=== PATIENT | female | born 1985 | race Caucasian/White ===

== ENCOUNTER 2023-12-07 08:28 | Outpatient (OUT) | payer BC, SELFPAY ==
[2023-12-07 08:48] LABS: Basophils Percent Auto 0.3 % (0.2-2.0); Eosinophils Absolute Auto 0.1 10^3/uL (0.0-0.7); Eosinophils Percent Auto 0.8 % (0.9-7.0); Hematocrit 37.3 % (36.0-48.0); Immature Granulocytes Abs Auto 0.01 10^3/uL (0.00-0.03); Immature Granulocytes Pct Auto 0.2 % (0.0-0.5); Lymphocytes Absolute Auto 1.9 10^3/uL (1.2-3.8); Lymphocytes Percent Auto 28.7 % (20.5-60.0); Mean Corpuscular HGB Conc 32.2 g/dL (29.9-35.2); Mean Corpuscular Hemoglobin 27.6 pg (26.7-34.0); Mean Corpuscular Volume 85.9 fL (81.0-99.0); Monocytes Absolute Auto 0.7 10^3/uL (0.3-0.8); Monocytes Percent Auto 10.5 % (1.7-12.0); Neutrophils Absolute Auto 3.8 10^3/uL (1.4-6.5); Neutrophils Percent Auto 59.5 % (43.0-75.0); Platelet Count 227 10^3/uL (150-450); Red Blood Count 4.34 10^6/uL (4.20-5.40); Red Cell Distribution Width 13.1 % (11.0-15.0); White Blood Count 6.5 10^3/uL (4.0-11.0)
[2023-12-07 09:03] LABS: Estimated Average Glucose 105 mg/dL; Glycohemoglobin A1C 5.3 % (4.5-6.2)
[2023-12-07 09:53] LABS: Alanine Aminotransferase 16 U/L (14-59); Albumin Globulin Ratio 0.7; Albumin Level 3.2 g/dL (3.4-5.0); Alkaline Phosphatase 58 U/L (46-116); Anion Gap 13.4; Aspartate Amino Transferase 10 U/L (15-37); BUN Creatinine Ratio 18.7; Bilirubin Total 0.5 mg/dL (0.2-1.0); Calcium 8.4 mg/dL (8.5-10.1); Carbon Dioxide 26.4 mmol/L (21.0-32.0); Chloride 103 mmol/L (98-107); Chol HDL Ratio 2.5; Cholesterol 158 mg/dL (<=200); Estimated GFR (African America >60 (>=60); Estimated GFR (Non-African Ame >60 (>=60); Free T3 2.57 pg/mL (2.18-3.98); Globulin 4.4 g/dL; Glucose 92 mg/dL (74-106); HDL Cholesterol 63 mg/dL (40-60); Potassium 3.8 mmol/L (3.5-5.1); Sodium 139 mmol/L (136-145); Total Protein 7.6 g/dL (6.4-8.2); Triglycerides 37 mg/dL (<=150); VLDL CHOLESTEROL 7.4 mg/dL
[2023-12-09 12:08] LABS: Insulin 9.6 uIU/mL (2.6-24.9)
== END 2023-12-07 08:29 | disposition home or self-care (01) ==
LOC: LAB 08:28
PROVIDERS: PCP Family Medicine; Visit Provider Family Medicine
DX: Z00.00 Encounter for general adult medical examination without abnormal findings (principal)
CPT/HCPCS: 36415; 80053; 80061; 82306; 83036; 83525; 83540; 84436; 84443; 84481; 85025

== ENCOUNTER 2024-01-11 11:01 | Outpatient (OUT) | payer BC, SELFPAY ==
--- OUTSIDE RECORDS SUMMARY | 2024-01-11 11:04 | XMS_ITS | CCD ---
Author Organization [facility] Care Team Providers Care Consumer Marketing Analyst Name Role Phone SEB WALLER Admitting Unavailable REQUEST, NONE LISTED Primary Care Unavaila ble CHRISTIN, SEB Attending Unavailable CHRISTIN, SEB Consulting Unavailable REQUEST, NONE LISTED Primary Care Unavaila ble CHRISTIN, SEB Admitting Unavailable CHRISTIN, SEB Attending Unavailable CHRISTIN, SEB Consulting Unavailable REQUEST, NONE LISTED Primary Care Unavaila ble HOY ., DR MATSON Admitting Unavailable HOY ., DR MATSON Attending Unavailable HOY ., DR MATSON Consulting Unavailable HOY ., DR MATSON Admitting Unavailable REQUEST, NONE LISTED Primary Care Unavaila ble HOY ., DR MATSON Attending Unavailable HOY ., DR MATSON Consulting Unavailable ZIEBER, DR CAROLINA Montgomery Consulting Unavailable HOY ., DR MATSON Admitting Unavailable HOY ., DR MATSON Attending Unavailable HOY ., DR MATSON Consulting Unavailable REQUEST, NONE LISTED Primary Care Unavaila ble HOY ., DR MATSON Admitting Unavailable HOY ., DR MATSON Attending Unavailable HOY ., DR MATSON Consulting Unavailable REQUEST, NONE LISTED Primary Care Unavaila ble HOY ., DR MATSON Attending Unavailable HOY ., DR MATSON Consulting Unavailable HOY ., DR MATSON Admitting Unavailable REQUEST, NONE LISTED Primary Care Unavaila ble ELVIN JOVANY Attending Unavailable Problems Active Problems Problem Classification Problem Date Documented Da te Episodic/Chronic Other upper respiratory disease (1 source) Nasal congestion; Translations: [NASAL CONGESTION] Onset: 02-10-2023 Episodic Unclassified (4 sources) CONTACT W/AND (SUSP) EXPOS COVID-19; Translations: [CONTACT W/AND (SUSP) EXPOS COVID-19] Onset: 05-31-2022 Unclassified (1 source) COUGH, UNSPECIFIED; Translations: [COUGH, UNSPECIFIED] Onset: 02-10-2023 Viral infection (1 source) COVID-19; Translations: [COVID-19] Onset: 02-10-2023 Past or Other Problems Problem Classification Problem Date Documented Da te Episodic/Chronic Fever of unknown origin (4 sources) Fever, unspecified; Translations: [FEVER UNSPECIFIED] Onset: 05-30-2022 Episodic Other upper respiratory infections (1 source) Acute recurrent frontal sinusitis; Translations: [ACUTE RECURRENT FRONTAL SINUSITIS] Onset: 05-29-2022 Episodic Residual codes; unclassified (1 source) Localized edema; Translations: [LOCALIZED EDEMA] Onset: 05-31-2022 Episodic Unclassified (1 source) CONTACT W/AND (SUSP) EXPOS COVID-19; Translations: [CONTACT W/AND (SUSP) EXPOS COVID-19] Onset: 02-07-2023 Results Test Name Value Interpretation Reference Range Facil ity SYMPTOMATIC COVID-19 ANTIGEN on 02-07-2023 EUA Statement SEE BELOW Normal [facility] Comment on above: Result Comment: This test has not been FDA cleared or approved, but has been authorized by the FDA under an Emergency Use Authorization (EUA) for use by authorized laboratories certified under CLIA that meet the requirements to perform moderate or high complexity testing. This test has been authorized only for the detection of proteins from SARS-CoV-2, not for any other viruses or pathogens. The emergency use of this test is authorized for the duration of the declaration that circumstances exist justifying the authorization of emergency use of in vitro diagnostic tests for detection and/or diagnosis of Covid-19 under section 564(b)(1) of the Act, 21 U.S.C. 360bbb-3(b)(1), unless the declaration is terminated or authorization is revoked sooner. Performed By: #### C VDAGS #### [facility] [address] [address] [address] Amber Fairbanks SARS-CoV-2 (COVID-19) RNA MARIZOL+probe Ql (Unsp spec) Positive Abnormal NEGATIVE [facility] Comment on above: Performed By: #### C VDAGS #### [facility] [address] [address] [address] Amber Fairbanks Covid-19 PCR (CVDTBH)on 09-13 SARS-CoV-2 (COVID-19) RNA MARIZOL+probe Ql (Unsp spec) Not detected Normal NOT DETECTED [facility] Comment on above: Result Comment: When diagnostic testing is negative, the possibility of a false negative should be considered in the context of a patient's recent exposures and the presence of clinical signs and symptoms consistent with SARS-CoV-2. This test is not yet approved or cleared by the [place] FDA. When there are no FDA-approved or cleared tests available, and other criteria are met, FDA can make tests available under an emergency access mechanism called an Emergency Use Authorization (EUA). The EUA for this test is supported by the [place] Clin[place] of Health and Human Service's declaration that circumstances exist to justify the emergency use of in vitro diagnostics for the detection and/or diagnosis of the virus that causes COVID-19. This EUA will remain in effect for the duration of the COVID-19 declaration justifying emergency of IVDs, unless it is terminated or revoked by the FDA (after which the test may no longer be used). Performed By: #### C VDTBH #### [facility] [address] [place] [address] Dr. Amber Fairbanks GROUP A STREP CULTUREon 09-13 S. pyogenes Ag Ql (Unsp spec) Culture Observations: NEGATIVE FOR GROUP A STREPTOCOCCUS. Normal [facility] Comment on above: Performed By: #### C VDAGA #### [facility] [address] [place] [address] Dr. Amber Fairbanks INFLUENZA A AND B AGon 09-27 INFLUENZA A AG Negative Normal NEGATIVE SEE COMMENT [facility] Comment on above: Performed By: #### I NFLUAB #### [facility] [address] [place] [address] Dr. Amber Fairbanks INFLUENZA B AG Negative Normal NEGATIVE SEE COMMENT [facility] Comment on above: Performed By: #### I NFLUAB #### [facility] [address] [place] [address] Dr. Amber Fairbanks INTERNAL CONTROLS Within Normal Limits Normal Within Normal Limits [facility] Comment on above: Performed By: #### I NFLUAB #### [facility] [address] [place] [address] Dr. Amber Fairbanks STREPT SCREENon 09-27-2022 STREP SCREEN A Negative Normal NEGATIVE [facility] Comment on above: Performed By: #### C VDAGA #### [facility] [address] [place] [address] Dr. Amber Fairbanks CBC AUTO DIFFon 05-30-2022 BASO # 0.0 103/ul Normal 0.0-0.1 [facility] Comment on above: Performed By: #### C BC #### [facility] [address] [place] [address] Dr. Amber Fairbanks Basophils/100 WBC (Bld) 0.3 % Normal 0.2-2.0 [facility] Comment on above: Performed By: #### C BC #### [facility] [address] [place] [address] Dr. Amber Fairbanks EO # 0.0 103/ul Normal 0.0-0.7 [facility] Comment on above: Performed By: #### C BC #### [facility] [address] [place] [address] Dr. Amber Fairbanks Eosinophils/100 WBC (Bld) 0.3 % Critically low 0.9-7.0 [facility] Comment on above: Performed By: #### C BC #### [facility] [address] [place] [address] Dr. Amber Fairbanks Erythrocyte distribution width (RBC) [Ratio] 12.8 % Normal 11.0-15.0 [facility] Comment on above: Performed By: #### C BC #### [facility] [address] [place] [address] Dr. Amber Fairbanks Hematocrit (Bld) [Volume fraction] 38.5 % Normal 36.0-48.0 [facility] Comment on above: Performed By: #### C BC #### [facility] [address] [place] [address] Dr. Amber Fairbanks Hemoglobin (Bld) [Mass/Vol] 12.9 g/dL Normal 12.0-16.0 [facility] Comment on above: Performed By: #### C BC #### [facility] [address] [address] [address] Amber Fairbanks IG # 0.00 10e3/ul Normal 0.00-0.03 [facility] Comment on above: Performed By: #### C BC #### [facility] [address] [address] [address] Amber Fairbanks IG % 0.0 % Normal 0.0-0.5 [facility] Comment on above: Performed By: #### C BC #### [facility] [address] [place] [address] Dr. Amber Fairbanks LYMPH # 1.1 103/ul Critically low 1.2-3.8 [facility] Comment on above: Performed By: #### C BC #### [facility] [address] [place] [address] Dr. Amber Fairbanks Lymphocytes/100 WBC (Bld) 27.2 % Normal 20.5-60.0 [facility] Comment on above: Performed By: #### C BC #### [facility] [address] [place] [address] Dr. Amber Fairbanks MANUAL DIFF REQ NO Normal [facility] Comment on above: Performed By: #### C BC #### [facility] [address] [place] [address] Dr. Amber Fairbanks MCH (RBC) [Entitic mass] 29.1 pg Normal 26.7-34.0 [facility] Comment on above: Performed By: #### C BC #### [facility] [address] [place] [address] Dr. Amber Fairbanks MCHC (RBC) [Mass/Vol] 33.5 g/dL Normal 29.9-35.2 [facility] Comment on above: Performed By: #### C BC #### [facility] [address] [place] [address] Dr. Amber Fairbanks MCV (RBC) [Entitic vol] 86.7 fL Normal 81.0-99.0 [facility] Comment on above: Performed By: #### C BC #### [facility] [address] [place] [address] Dr. Amber Fairbanks MONO # 0.5 103/ul Normal 0.3-0.8 [facility] Comment on above: Performed By: #### C BC #### [facility] [address] [place] [address] Dr. Amber Fairbanks Monocytes/100 WBC (Bld) 13.5 % Critically high 1.7-12.0 [facility] Comment on above: Performed By: #### C BC #### [facility] [address] [place] [address] Dr. Amber Fairbanks NEUT # 2.3 103/ul Normal 1.4-6.5 [facility] Comment on above: Performed By: #### C BC #### [facility] [address] [place] [address] Dr. Amber Fairbanks Neutrophils/100 WBC (Bld) 58.7 % Normal 43.0-75.0 [facility] Comment on above: Performed By: #### C BC #### [facility] [address] [place] [address] Dr. Amber Fairbanks Platelet mean volume (Bld) [Entitic vol] 10.5 fL Normal 9.5-13.5 [facility] Comment on above: Performed By: #### C BC #### [facility] [address] [place] [address] Dr. Amber Fairbanks PLT 241 103/ul Normal 150-450 [facility] Comment on above: Performed By: #### C BC #### [facility] [address] [place] [address] Dr. Amber Fairbanks RBC 4.44 106/ul Normal 4.20-5.40 [facility] Comment on above: Performed By: #### C BC #### [facility] [address] [place] [address] Dr. Amber Fairbanks WBC 3.9 103/ul Critically low 4.0-11.0 [facility] Comment on above: Performed By: #### C BC #### [facility] [address] [place] [address] Dr. Amber Fairbanks CPKon 05-30-2022 CK [Catalytic activity/Vol] 178 U/L Normal 26-192 [facility] Comment on above: Performed By: #### C MP, CK #### [facility] [address] [place] [address] Dr. Amber Fairbanks Covid-19 PCR (CVDTB)on 05-14 SARS-CoV-2 (COVID-19) RNA MARIZOL+probe Ql (Unsp spec) Not detected Normal NOT DETECTED [facility] Comment on above: Result Comment: This test is not yet approved or cleared by the [place] FDA. When there are no FDA-approved or cleared tests available, and other criteria are met, FDA can make tests available under an emergency access mechanism called an Emergency Use Authorization (EUA). The EUA for this test is supported by the [place] of Health and Human Service's (HHS's) declaration that circumstances exist to justify the emergency use of in vitro diagnostics for the detection and/or diagnosis of the virus that causes COVID-19. This EUA will remain in effect (meaning this test can be used) for the duration of the COVID-19 declaration justifying emergency of IVDs, unless it is terminated or revoked by FDA (after which the test may no longer be used). When diagnostic testing is negative, the possibility of a false negative should be considered in the context of a patient's recent exposures and the presence of clinical signs and symptoms consistent with SARS-CoV-2. Performed By: #### C VDTBH #### [facility] [address] [place] [address] Dr. Amber Fairbanks INFLUENZA A AND B AGon 05-30 INFLUENZA A AG Negative Normal NEGATIVE SEE COMMENT [facility] Comment on above: Performed By: #### C VDAGA #### [facility] [address] [place] [address] Dr. Amber Fairbanks INFLUENZA B AG Negative Normal NEGATIVE SEE COMMENT [facility] Comment on above: Performed By: #### C VDAGA #### [facility] [address] [place] [address] Dr. Amber Fairbanks INTERNAL CONTROLS Within Normal Limits Normal Within Normal Limits [facility] Comment on above: Performed By: #### C VDAGA #### [facility] [address] [place] [address] Dr. Amber Fairbanks MONOon 05-30-2022 Monocytes (Bld) [#/Vol] Negative Normal NEGATIVE [facility] Comment on above: Performed By: #### C VDAGA #### [facility] [address] [place] [address] Dr. Amber Fairbanks PROF 14(COMP METB)on 022 Albumin [Mass/Vol] 3.7 g/dL Normal 3.4-5.0 [facility] Comment on above: Performed By: #### C VDAGA #### [facility] [address] [place] [address] Dr. Amber Fairbanks Albumin/Globulin [Mass ratio] 0.8 {ratio} Normal [facility] Comment on above: Performed By: #### C VDAGA #### [facility] [address] [place] [address] Dr. Amber Fairbanks ALP [Catalytic activity/Vol] 72 U/L Normal 46-116 [facility] Comment on above: Performed By: #### C VDAGA #### [facility] [address] [place] [address] Dr. Amber Fairbanks ALT [Catalytic activity/Vol] 20 U/L Normal 14-59 [facility] Comment on above: Performed By: #### C VDAGA #### [facility] [address] [place] [address] Dr. Amber Fairbanks Anion gap [Moles/Vol] 14.7 mmol/L Normal [facility] Comment on above: Performed By: #### C VDAGA #### [facility] [address] [place] [address] Dr. Amber Fairbanks AST [Catalytic activity/Vol] 26 U/L Normal 15-37 [facility] Comment on above: Performed By: #### C VDAGA #### [facility] [address] [place] [address] Dr. Amber Fairbanks Bilirubin [Mass/Vol] 0.5 mg/dL Normal 0.2-1.0 [facility] Comment on above: Performed By: #### C VDAGA #### [facility] [address] [place] [address] Dr. Amber Fairbanks Calcium [Mass/Vol] 8.8 mg/dL Normal 8.5-10.1 [facility] Comment on above: Performed By: #### C VDAGA #### [facility] [address] [address] [address] Amber Fairbanks Chloride [Moles/Vol] 101 mmol/L Normal 98-107 [facility] Comment on above: Performed By: #### C VDAGA #### [facility] [address] [place] [address] Dr. Amber Fairbanks CO2 [Moles/Vol] 24.9 mmol/L Normal 21.0-32.0 [facility] Comment on above: Performed By: #### C VDAGA #### [facility] [address] [place] [address] Dr. Amber Fairbanks Creatinine [Mass/Vol] 0.83 mg/dL Normal 0.55-1.02 [facility] Comment on above: Performed By: #### C VDAGA #### [facility] [address] [place] [address] Dr. Amber Fairbanks EGFR-AF FRENCH >60 Normal >=60 [facility] Comment on above: Performed By: #### C VDAGA #### [facility] [address] [place] [address] Dr. Amber Fairbanks EGFR-NON AF FRENCH >60 Normal >=60 [facility] Comment on above: Performed By: #### C VDAGA #### [facility] [address] [place] [address] Dr. Amber Fairbanks Globulin (S) [Mass/Vol] 4.4 g/dL Normal [facility] Comment on above: Performed By: #### C VDAGA #### [facility] [address] [place] [address] Dr. Amber Fairbanks Glucose [Mass/Vol] 88 mg/dL Normal 74-106 [facility] Comment on above: Performed By: #### C VDAGA #### [facility] [address] [place], [place] [id number] Dr. Amber Fairbanks Potassium [Moles/Vol] 3.6 mmol/L Normal 3.5-5.1 [facility] Comment on above: Performed By: #### C VDAGA #### [facility] [address] [place] [address] Dr. Amber Fairbanks Protein [Mass/Vol] 8.1 g/dL Normal 6.4-8.2 [facility] Comment on above: Performed By: #### C VDAGA #### [facility] [address] [place] [address] Dr. Amber Fairbanks Sodium [Moles/Vol] 137 mmol/L Normal 136-145 [facility] Comment on above: Performed By: #### C VDAGA #### [facility] [address] [place] [address] Dr. Amber Fairbanks Urea nitrogen [Mass/Vol] 11.0 mg/dL Normal 7.0-18.0 [facility] Comment on above: Performed By: #### C VDAGA #### [facility] [address] [place] [address] Dr. Amber Fairbanks Urea nitrogen/Creatinin e [Mass ratio] 13.3 mg/mg Normal [facility] Comment on above: Performed By: #### C VDAGA #### [facility] [address] [place] [address] Dr. Amber Fairbanks SED RATE [facility] 2021 SED RATE 27 mm/hr Critically high <=20 [facility] Comment on above: Performed By: #### S EDR #### [facility] [address] [place] [address] Dr. Amber Fairbanks US PORSHA DOP LEG BILon 022 US PORSHA DOP LEG IVÁN EXAMINATION: US PORSHA DOP LEG IVÁN HISTORY: Bilateral lower leg edema COMPARISON: Ultrasound venous Doppler leg bilateral 06/06/2021 FINDINGS: REGION: Bilateral lower extremities THROMBI: None. COMPRESSIBILITY: Normal compressibility. FLOW: Normal waveform and antegrade flow between 5 and 20 cm/s. OTHER: None. IMPRESSION: 1. No deep vein thrombus within the right or left lower extremity. Electronically authenticated by: CAROLINA Ewing: 2022-05-30 10:21 Normal [facility] Covid-19 PCR (CVDTBH)on 05-14 SARS-CoV-2 (COVID-19) RNA MARIZLO+probe Ql (Unsp spec) Not detected Normal NOT DETECTED [facility] Comment on above: Result Comment: When diagnostic testing is negative, the possibility of a false negative should be considered in the context of a patient's recent exposures and the presence of clinical signs and symptoms consistent with SARS-CoV-2. This test is not yet approved or cleared by the [place] FDA. When there are no FDA-approved or cleared tests available, and other criteria are met, FDA can make tests available under an emergency access mechanism called an Emergency Use Authorization (EUA). The EUA for this test is supported by the [place] of Health and Human Service's declaration that circumstances exist to justify the emergency use of in vitro diagnostics for the detection and/or diagnosis of the virus that causes COVID-19. This EUA will remain in effect for the duration of the COVID-19 declaration justifying emergency of IVDs, unless it is terminated or revoked by the FDA (after which the test may no longer be used). Performed By: #### C VDAGA #### [facility] [address] [place] [address] Dr. Amber Fairbanks ASYMPTOMATIC COVID-19 ANTIGE Non 04-23-2022 EUA Statement SEE BELOW Normal [facility] Comment on above: Result Comment: This test has not been FDA cleared or approved, but has been authorized by the FDA under an Emergency Use Authorization (EUA) for use by authorized laboratories certified under CLIA that meet the requirements to perform moderate or high complexity testing. This test has been authorized only for the detection of proteins from SARS-CoV-2, not for any other viruses or pathogens. The emergency use of this test is authorized for the duration of the declaration that circumstances exist justifying the authorization of emergency use of in vitro diagnostic tests for detection and/or diagnosis of Covid-19 under section 564(b)(1) of the Act, 21 U.S.C. 360bbb-3(b)(1), unless the declaration is terminated or authorization is revoked sooner. Performed By: #### C VDAGA #### [facility] [address] [place] [address] Dr. Amber Fairbanks SARS-CoV-2 (COVID-19) RNA MARIZOL+probe Ql (Unsp spec) Positive Critically abnormal NEGATIVE [facility] Comment on above: Result Comment: SARS -CoV-2 antigen present; does not rule out coinfection with other pathogens. Performed By: #### C VDAGA #### [facility] [address] [place] [address] Dr. Amber Fairbanks Covid-19 PCR (CVDTBH)on SARS-CoV-2 (COVID-19) RNA MARIZOL+probe Ql (Unsp spec) Detected Critically abnormal NOT DETECTED [facility] Comment on above: Result Comment: This test is not yet approved or cleared by the [place] FDA. When there are no FDA-approved or cleared tests available, and other criteria are met, FDA can make tests available under an emergency access mechanism called an Emergency Use Authorization (EUA). The EUA for this test is supported by the [place] of Health and Human Service's declaration that circumstances exist to justify the emergency use of in vitro diagnostics for the detection and/or diagnosis of the virus that causes COVID-19. This EUA will remain in effect for the duration of the COVID-19 declaration justifying emergency of IVDs, unless it is terminated or revoked by the FDA (after which the test may no longer be used). Performed By: #### C VDTBH #### [facility] [address] [place] [address] Dr. Amber Fairbanks Covid-19 PCR (CVDTBH)on SARS-CoV-2 (COVID-19) RNA MARIZOL+probe Ql (Unsp spec) Not detected Normal NOT DETECTED [facility] Comment on above: Result Comment: When diagnostic testing is negative, the possibility of a false negative should be considered in the context of a patient's recent exposures and the presence of clinical signs and symptoms consistent with SARS-CoV-2. This test is not yet approved or cleared by the [place] FDA. When there are no FDA-approved or cleared tests available, and other criteria are met, FDA can make tests available under an emergency access mechanism called an Emergency Use Authorization (EUA). The EUA for this test is supported by the [place] of Health and Human Service's declaration that circumstances exist to justify the emergency use of in vitro diagnostics for the detection and/or diagnosis of the virus that causes COVID-19. This EUA will remain in effect for the duration of the COVID-19 declaration justifying emergency of IVDs, unless it is terminated or revoked by the FDA (after which the test may no longer be used). Performed By: #### C [facility] #### [facility] [address], [place] [address] Dr. Amber Fairbanks Provider Letteron 01-31-2022 Provider Letter January 31, 2022 DEMETRIA BURKS [address] [place] [phone] DEMETRIA BURKS 1985 Dear Demetria Brenner , We have been trying to reach you with no success. It is important that you return our call regarding your referral from Dr. Beckford upon receiving this letter. Also, at the time of your call, please provide us with your current information. Thank you for your prompt attention to this matter. Sincerely, General Surgery [phone] [facility] Encounters Encounter Date Encounter Type Care Provider Facility Start: 01-06-2024 End: 01-06-2024 ambulatory JOVANY OCONNOR Not Available Start: 02-07-2023 End: 02-07-[address] DANO BECKFORD . Facility:[facility] Start: 09-27-2022 End: 09-27-[address] DANO BECKFORD . Facility:[facility] Start: 05-30-2022 End: 05-31-[address] DANO BECKFORD . Facility:[facility] Start: 05-28-2022 End: 05-28-[address] NONE LISTED REQUEST Facility:[facility] Start: 04-23-2022 End: 04-23-2022 ambulatory NONE LISTED REQUEST Facility:[facility] Start: 04-17-2022 End: 04-17-2022 ambulatory SEB WALLER Facility:[facility] Start: 04-13-2022 End: 04-13-[address] DANO BECKFORD . Facility:[facility] Payers Date Payer Category Payer Unknown [id number] 1985 Unknown [id number] 2.16.84 [id number] 1985 Unknown [id number] 2.16.84 [id number] 1985 Unknown [id number] 2.16.84 [id number] 1985 Unknown [id number] 2.16.84 [id number] 1985 Unknown [id number] 2.16.84 [id number] 1985 Unknown [id number] 2.16.84 [id number] 1985 Unknown [id number] 2.16.84 [id number] 1985 Unknown [id number] 2.16.84 [id number] 1959 Unknown [id number] Summary Purpose Family History No Family History Records FoundNo Family History Records FoundNo Family History Records Found Advance Directives No Advanced Directives Records FoundNo Advanced Directives Records FoundNo Advanced Directives Records Found Additional Source Comments INFORMATION SOURCE (unrecogn ized section and content) DATE CREATED AUTHOR 02/02/2022 [facility] DATE CREATED AUTHOR AUTHOR'S ORGANIZ ATION 02/10/2023 [facility] DATE CREATED AUTHOR AUTHOR'S ORGANIZ ATION 01/07/2024 [facility] dical Specialists [facility] FOR RECORDS PERTAINING TO PATIENTS WHO ARE OR HAVE BEEN ENROLLED IN A CHEMICAL DEPENDENCY/SUBSTANCEABUSE PROGRAM, SOME INFORMATION MAY BE OMITTED. This clinical summary was aggregated from multiple sources. Caution should be exercised in using it in the provision of clinical care. This summary normalizes information from multiple sources, and as a consequence, information in this document may materially change the coding, format and clinical context of patient data. In addition, data may be omitted in some cases. CLINICAL DECISIONS SHOULD BE BASED ON THE PRIMARY CLINICAL RECORDS. [facility] [employer] [facility]. provides no warranty or guarantee of the accuracy or completeness of information in this document.
--- NOTE | 2024-01-11 11:06 | US_ITS ---
The [address] [address] Patient Name: MAGED BURKS MRN: [id number] date: 1985 Sex: F Assigned Patient Location: US Current Patient Location: Accession/Order Number: [id number] Exam Date: 01/11/2024 11:10 Report Date: 01/13/2024 11:26 At the request of: JOVANY OCONNOR Procedure: US pelvis w/ transvaginal EXAMINATION: US pelvis w/ transvaginal HISTORY: ABNORMAL MENSTRUAL CYCLE N92.6 COMPARISON: No relevant comparison available. TECHNIQUE: Transabdominal and/or transvaginal sonographic examination was performed as indicated by examination type. FINDINGS: UTERUS: Normal size and appearance. Incidental small nabothian cyst. Uterus size: 8.1 x 4.1 x 5.3 cm ENDOMETRIUM: Normal homogeneous appearance. Endometrial thickness: 5 mm RIGHT OVARY: Contains a 2.0 cm follicle versus benign-appearing cyst. Duplex Doppler demonstrates normal waveform and flow; resistive index 0.5. Ovary size: 3.7 x 2.1 x 2.2 cm LEFT OVARY: Normal size and appearance. Duplex Doppler demonstrates normal waveform and flow; resistive index 0.6. Ovary size: 2.7 x 1.7 x 2.2 cm CUL-DE-SAC: Trace amount of free fluid, likely physiologic. BLADDER: Unremarkable. OTHER: None. US/US pelvis w/ transvaginal IMPRESSION: 1. No abnormal or suspicious findings to account for patient's symptoms. Electronically authenticated by: CAROLINA CAMPOS Date: 01/13/2024 11:26
[2024-01-11 12:04] LABS: Basophils Percent Auto 0.2 % (0.2-2.0); Eosinophils Absolute Auto 0.1 10^3/uL (0.0-0.7); Eosinophils Percent Auto 0.9 % (0.9-7.0); Hematocrit 37.7 % (36.0-48.0); Hemoglobin 12.1 g/dL (12.0-16.0); Immature Granulocytes Abs Auto 0.02 10^3/uL (0.00-0.03); Immature Granulocytes Pct Auto 0.3 % (0.0-0.5); Lymphocytes Absolute Auto 1.6 10^3/uL (1.2-3.8); Lymphocytes Percent Auto 24.3 % (20.5-60.0); Mean Corpuscular HGB Conc 32.1 g/dL (29.9-35.2); Mean Corpuscular Hemoglobin 28.1 pg (26.7-34.0); Mean Corpuscular Volume 87.5 fL (81.0-99.0); Mean Platelet Volume 11.1 fL (9.5-13.5); Monocytes Absolute Auto 0.5 10^3/uL (0.3-0.8); Monocytes Percent Auto 7.8 % (1.7-12.0); Neutrophils Absolute Auto 4.4 10^3/uL (1.4-6.5); Neutrophils Percent Auto 66.5 % (43.0-75.0); Platelet Count 258 10^3/uL (150-450); Red Blood Count 4.31 10^6/uL (4.20-5.40); Red Cell Distribution Width 12.7 % (11.0-15.0); White Blood Count 6.7 10^3/uL (4.0-11.0)
[2024-01-11 13:05] LABS: Estimated Average Glucose 111 mg/dL; Glycohemoglobin A1C 5.5 % (4.5-6.2)
[2024-01-11 13:10] LABS: Free T4 0.88 ng/dL (0.76-1.46)
[2024-01-11 13:12] LABS: HCG Quantitative <1 mIU/mL
[2024-01-12 07:07] LABS: FSH 5.2 mIU/mL (.); Luteinizing Hormone(LH) 4.8 mIU/mL (.)
[2024-01-12 08:07] LABS: DHEA-Sulfate 65.6 ug/dL (57.3-279.2); Prolactin 14.3 ng/mL (4.8-33.4)
[2024-01-20 01:06] LABS: DHEA, Serum 102 ng/dL (31-701)
== END 2024-01-11 11:02 | disposition home or self-care (01) ==
PROVIDERS: Visit Provider Obstetrics & Gynecology
DX: E03.9 Hypothyroidism, unspecified (principal); N92.6 Irregular menstruation, unspecified
CPT/HCPCS: 36415; 76830; 76856; 82626; 82627; 83001; 83002; 83036; 84146; 84436; 84439; 84443; 84481; 84702; 85025

== ENCOUNTER 2024-01-11 11:51 | Outpatient (OUT) | payer BC, SELFPAY ==
--- OUTSIDE RECORDS SUMMARY | 2024-01-11 11:54 | XMS_ITS | CCD ---
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 Performed By: #### C VDAGS #### [facility] [address] [address] [address] Amber Fairbanks SARS-CoV-2 (COVID-19) RNA MARIZOL+probe Ql (Unsp spec) Positive Abnormal NEGATIVE [facility] Comment on above: Performed By: #### C VDAGS #### [facility] [address] [address] [address] Amber Fairbanks Covid-19 PCR (CVDTBH)on 09-13 SARS-CoV-2 (COVID-19) RNA MARIZOL+probe Ql (Unsp spec) Not detected Normal NOT DETECTED [facility] Comment on above: Result Comment: When [...] for this test is supported by the [employer] [employer] of Health and Human Service's declaration that [...] used). Performed By: #### C VDTBH #### [facility] [address] [place] [address] Dr. Amber Fairbanks GROUP A STREP CULTUREon 09-13 S. pyogenes Ag Ql (Unsp spec) Culture Observations: NEGATIVE FOR GROUP A STREPTOCOCCUS. Normal [facility] Comment on above: Performed By: #### C VDAGA #### [facility] [address] [place] [address] Dr. Amber Fairbanks INFLUENZA A AND B AGon 09-27 INFLUENZA A AG Negative Normal NEGATIVE SEE COMMENT [facility] Comment on above: Performed By: #### I NFLUAB #### [facility] [address] [place] [address] Dr. Amber Fairbanks INFLUENZA B AG Negative Normal NEGATIVE SEE COMMENT [facility] Comment on above: Performed By: #### I NFLUAB #### [facility] [address] [place] [address] Dr. Amber Fairbanks INTERNAL CONTROLS Within Normal Limits Normal Within Normal Limits [facility] Comment on above: Performed By: #### I NFLUAB #### [facility] [address] [place] [address] Dr. Amber Fairbanks STREPT SCREENon 09-27-2022 STREP SCREEN A Negative Normal NEGATIVE [facility] Comment on above: Performed By: #### C VDAGA #### [facility] [address] [place] [address] Dr. Amber Fairbanks CBC AUTO DIFFon 05-30-2022 BASO # 0.0 103/ul Normal 0.0-0.1 [facility] Comment on above: Performed By: #### C BC #### [facility] [address] [place] [address] Dr. Amber Fairbanks Basophils/100 WBC (Bld) 0.3 % Normal 0.2-2.0 [facility] Comment on above: Performed By: #### C BC #### [facility] [address] [place] [address] Dr. Amber Fairbanks EO # 0.0 103/ul Normal 0.0-0.7 [facility] Comment on above: Performed By: #### C BC #### [facility] [address] [place] [address] Dr. Amber Fairbanks Eosinophils/100 WBC (Bld) 0.3 % Critically low 0.9-7.0 [facility] Comment on above: Performed By: #### C BC #### [facility] [address] [place] [address] Dr. Amber Fairbanks Erythrocyte distribution width (RBC) [Ratio] 12.8 % Normal 11.0-15.0 [facility] Comment on above: Performed By: #### C BC #### [facility] [address] [place] [address] Dr. Amber Fairbanks Hematocrit (Bld) [Volume fraction] 38.5 % Normal 36.0-48.0 [facility] Comment on above: Performed By: #### C BC #### [facility] [address] [place] [address] Dr. Amber Fairbanks Hemoglobin (Bld) [Mass/Vol] 12.9 g/dL Normal 12.0-16.0 [facility] Comment on above: Performed By: #### C BC #### [facility] [address] [address] [address] Amber Fairbanks IG # 0.00 10e3/ul Normal 0.00-0.03 [facility] Comment on above: Performed By: #### C BC #### [facility] [address] [address] [address] Amber Fairbanks IG % 0.0 % Normal 0.0-0.5 [facility] Comment on above: Performed By: #### C BC #### [facility] [address] [place] [address] Dr. Amber Fairbanks LYMPH # 1.1 103/ul Critically low 1.2-3.8 [facility] Comment on above: Performed By: #### C BC #### [facility] [address] [place] [address] Dr. Amber Fairbanks Lymphocytes/100 WBC (Bld) 27.2 % Normal 20.5-60.0 [facility] Comment on above: Performed By: #### C BC #### [facility] [address] [place] [address] Dr. Amber Fairbanks MANUAL DIFF REQ NO Normal [facility] Comment on above: Performed By: #### C BC #### [facility] [address] [place] [address] Dr. Amber Fairbanks MCH (RBC) [Entitic mass] 29.1 pg Normal 26.7-34.0 [facility] Comment on above: Performed By: #### C BC #### [facility] [address] [place] [address] Dr. Amber Fairbanks MCHC (RBC) [Mass/Vol] 33.5 g/dL Normal 29.9-35.2 [facility] Comment on above: Performed By: #### C BC #### [facility] [address] [place] [address] Dr. Amber Fairbanks MCV (RBC) [Entitic vol] 86.7 fL Normal 81.0-99.0 [facility] Comment on above: Performed By: #### C BC #### [facility] [address] [place] [address] Dr. Amber Fairbanks MONO # 0.5 103/ul Normal 0.3-0.8 [facility] Comment on above: Performed By: #### C BC #### [facility] [address] [place] [address] Dr. Amber Fairbanks Monocytes/100 WBC (Bld) 13.5 % Critically high 1.7-12.0 [facility] Comment on above: Performed By: #### C BC #### [facility] [address] [place] [address] Dr. Amber Fairbanks NEUT # 2.3 103/ul Normal 1.4-6.5 [facility] Comment on above: Performed By: #### C BC #### [facility] [address] [place] [address] Dr. Amber Fairbanks Neutrophils/100 WBC (Bld) 58.7 % Normal 43.0-75.0 [facility] Comment on above: Performed By: #### C BC #### [facility] [address] [place] [address] Dr. Amber Fairbanks Platelet mean volume (Bld) [Entitic vol] 10.5 fL Normal 9.5-13.5 [facility] Comment on above: Performed By: #### C BC #### [facility] [address] [place] [address] Dr. Amber Fairbanks PLT 241 103/ul Normal 150-450 [facility] Comment on above: Performed By: #### C BC #### [facility] [address] [place] [address] Dr. Amber Fairbanks RBC 4.44 106/ul Normal 4.20-5.40 [facility] Comment on above: Performed By: #### C BC #### [facility] [address] [place] [address] Dr. Amber Fairbanks WBC 3.9 103/ul Critically low 4.0-11.0 [facility] Comment on above: Performed By: #### C BC #### [facility] [address] [place] [address] Dr. Amber Fairbanks CPKon 05-30-2022 CK [Catalytic activity/Vol] 178 U/L Normal 26-192 [facility] Comment on above: Performed By: #### C MP, CK #### [facility] [address] [place] [address] Dr. Amber Fairbanks Covid-19 PCR (CVDTB)on 05-14 SARS-CoV-2 (COVID-19) RNA MARIZOL+probe Ql (Unsp spec) Not detected Normal NOT DETECTED [facility] Comment on above: Result Comment: This test is not yet approved or cleared by the [place] FDA. When there are no FDA-approved or cleared tests available, and other criteria are met, FDA can make tests available under an emergency access mechanism called an Emergency Use Authorization (EUA). The EUA for this test is supported by the [place] of Health and Human Service's (HHS's) declaration [...] SARS-CoV-2. Performed By: #### C VDTBH #### [facility] [address] [place] [address] Dr. Amber Fairbanks INFLUENZA A AND B AGon 05-30 INFLUENZA A AG Negative Normal NEGATIVE SEE COMMENT [facility] Comment on above: Performed By: #### C VDAGA #### [facility] [address] [place] [address] Dr. Amber Fairbanks INFLUENZA B AG Negative Normal NEGATIVE SEE COMMENT [facility] Comment on above: Performed By: #### C VDAGA #### [facility] [address] [place] [address] Dr. Amber Fairbanks INTERNAL CONTROLS Within Normal Limits Normal Within Normal Limits [facility] Comment on above: Performed By: #### C VDAGA #### [facility] [address] [place] [address] Dr. Amber Fairbanks MONOon 05-30-2022 Monocytes (Bld) [#/Vol] Negative Normal NEGATIVE [facility] Comment on above: Performed By: #### C VDAGA #### [facility] [address] [place] [address] Dr. Amber Fairbanks PROF 14(COMP METB)on 022 Albumin [Mass/Vol] 3.7 g/dL Normal 3.4-5.0 [facility] Comment on above: Performed By: #### C VDAGA #### [facility] [address] [place] [address] Dr. Amber Fairbanks Albumin/Globulin [Mass ratio] 0.8 {ratio} Normal [facility] Comment on above: Performed By: #### C VDAGA #### [facility] [address] [place] [address] Dr. Amber Fairbanks ALP [Catalytic activity/Vol] 72 U/L Normal 46-116 [facility] Comment on above: Performed By: #### C VDAGA #### [facility] [address] [place] [address] Dr. Amber Fairbanks ALT [Catalytic activity/Vol] 20 U/L Normal 14-59 [facility] Comment on above: Performed By: #### C VDAGA #### [facility] [address] [place] [address] Dr. Amber Fairbanks Anion gap [Moles/Vol] 14.7 mmol/L Normal [facility] Comment on above: Performed By: #### C VDAGA #### [facility] [address] [place] [address] Dr. Amber Fairbanks AST [Catalytic activity/Vol] 26 U/L Normal 15-37 [facility] Comment on above: Performed By: #### C VDAGA #### [facility] [address] [place] [address] Dr. Amber Fairbanks Bilirubin [Mass/Vol] 0.5 mg/dL Normal 0.2-1.0 [facility] Comment on above: Performed By: #### C VDAGA #### [facility] [address] [place] [address] Dr. Amber Fairbanks Calcium [Mass/Vol] 8.8 mg/dL Normal 8.5-10.1 [facility] Comment on above: Performed By: #### C VDAGA #### [facility] [address] [address] [address] Amber Fairbanks Chloride [Moles/Vol] 101 mmol/L Normal 98-107 [facility] Comment on above: Performed By: #### C VDAGA #### [facility] [address] [place] [address] Dr. Amber Fairbanks CO2 [Moles/Vol] 24.9 mmol/L Normal 21.0-32.0 [facility] Comment on above: Performed By: #### C VDAGA #### [facility] [address] [place] [address] Dr. Amber Fairbanks Creatinine [Mass/Vol] 0.83 mg/dL Normal 0.55-1.02 [facility] Comment on above: Performed By: #### C VDAGA #### [facility] [address] [place] [address] Dr. Amber Fairbanks EGFR-AF ANDORRAN >60 Normal >=60 [facility] Comment on above: Performed By: #### C VDAGA #### [facility] [address] [place] [address] Dr. Amber Fairbanks EGFR-NON AF ANDORRAN >60 Normal >=60 [facility] Comment on above: Performed By: #### C VDAGA #### [facility] [address] [place] [address] Dr. Amber Fairbanks Globulin (S) [Mass/Vol] 4.4 g/dL Normal [facility] Comment on above: Performed By: #### C VDAGA #### [facility] [address] [place] [address] Dr. Amber Fairbanks Glucose [Mass/Vol] 88 mg/dL Normal 74-106 [facility] Comment on above: Performed By: #### C VDAGA #### [facility] [address] [place], [place] [id number] Dr. Amber Fairbanks Potassium [Moles/Vol] 3.6 mmol/L Normal 3.5-5.1 [facility] Comment on above: Performed By: #### C VDAGA #### [facility] [address] [place] [address] Dr. Amber Fairbanks Protein [Mass/Vol] 8.1 g/dL Normal 6.4-8.2 [facility] Comment on above: Performed By: #### C VDAGA #### [facility] [address] [place] [address] Dr. Amber Fairbanks Sodium [Moles/Vol] 137 mmol/L Normal 136-145 [facility] Comment on above: Performed By: #### C VDAGA #### [facility] [address] [place] [address] Dr. Amber Fairbanks Urea nitrogen [Mass/Vol] 11.0 mg/dL Normal 7.0-18.0 [facility] Comment on above: Performed By: #### C VDAGA #### [facility] [address] [place] [address] Dr. Amber Fairbanks Urea nitrogen/Creatinin e [Mass ratio] 13.3 mg/mg Normal [facility] Comment on above: Performed By: #### C VDAGA #### [facility] [address] [place] [address] Dr. Amber Fairbanks SED RATE [facility] 2021 SED RATE 27 mm/hr Critically high <=20 [facility] Comment on above: Performed By: #### S EDR #### [facility] [address] [place] [address] Dr. Amber Fairbanks US PORSHA DOP LEG [...] by: CAROLINA Ewing: 2022-05-30 10:21 Normal [facility] Covid-19 PCR (CVDTBH)on 05-14 SARS-CoV-2 (COVID-19) RNA MARIZOL+probe Ql (Unsp spec) Not detected Normal NOT DETECTED [facility] Comment on above: Result Comment: When [...] for this test is supported by the [place] of Health and Human Service's declaration that [...] used). Performed By: #### C VDAGA #### [facility] [address] [place] [address] Dr. Amber Fairbanks ASYMPTOMATIC COVID-19 ANTIGE Non 04-23-2022 EUA Statement SEE BELOW Normal [facility] Comment on above: Result Comment: This test [...] sooner. Performed By: #### C VDAGA #### [facility] [address] [place] [address] Dr. Amber Fairbanks SARS-CoV-2 (COVID-19) RNA MARIZOL+probe Ql (Unsp spec) Positive Critically abnormal NEGATIVE [facility] Comment on above: Result Comment: SARS -CoV-2 antigen present; does not rule out coinfection with other pathogens. Performed By: #### C VDAGA #### [facility] [address] [place] [address] Dr. Amber Fairbanks Covid-19 PCR (CVDTBH)on SARS-CoV-2 (COVID-19) RNA MARIZOL+probe Ql (Unsp spec) Detected Critically abnormal NOT DETECTED [facility] Comment on above: Result Comment: This test is not yet approved or cleared by the [place] FDA. When there are no FDA-approved or cleared tests available, and other criteria are met, FDA can make tests available under an emergency access mechanism called an Emergency Use Authorization (EUA). The EUA for this test is supported by the [place] of Health and Human Service's declaration that [...] used). Performed By: #### C VDTBH #### [facility] [address] [place] [address] Dr. Amber Fairbanks Covid-19 PCR (CVDTBH)on SARS-CoV-2 (COVID-19) RNA MARIZOL+probe Ql (Unsp spec) Not detected Normal NOT DETECTED [facility] Comment on above: Result Comment: When [...] for this test is supported by the [place] of Health and Human Service's declaration that [...] longer be used). Performed By: #### C [facility] #### [facility] [address] [place], [place] [address] Dr. Amber Fairbanks Provider Letteron 01-31-2022 Provider Letter January 31, 2022 DEMETRIA BURKS [address] [place] [phone] DEMETRIA BURKS 1985 Dear Demetria Brenner , We have been trying to reach you with no success. It is important that you return our call regarding your referral from Dr. Beckford upon receiving this letter. Also, at the time of your call, please provide us with your current information. Thank you for your prompt attention to this matter. Sincerely, General Surgery [phone] [facility] Encounters Encounter Date Encounter Type Care Provider [...] Facility:[facility] Payers Date Payer Category Payer Unknown [id number] 1985 Unknown [id number] 2.16.84 [id number] 1985 Unknown [id number] 2.16.84 [id number] 1985 Unknown [id number] 2.16.84 [id number] 1985 Unknown [id number] 2.16.84 [id number] 1985 Unknown [id number] 2.16.84 [id number] 1985 Unknown [id number] 2.16.84 [id number] 1985 Unknown [id number] 2.16.84 [id number] 1985 Unknown [id number] 2.16.84 [id number] 1959 Unknown [id number] Summary Purpose Family History No Family History Records FoundNo Family History Records FoundNo Family History Records Found Advance Directives No Advanced Directives Records FoundNo Advanced Directives Records FoundNo Advanced Directives Records Found Additional Source Comments INFORMATION SOURCE (unrecogn ized section and content) DATE CREATED AUTHOR 02/02/2022 [facility] DATE CREATED AUTHOR AUTHOR'S ORGANIZ ATION 02/10/2023 John [facility]ue [facility] DATE CREATED AUTHOR AUTHOR'S ORGANIZ ATION 01/07/2024 [facility] dical Specialists [facility] FOR RECORDS PERTAINING TO PATIENTS WHO [...] BE BASED ON THE PRIMARY CLINICAL RECORDS. [facility] [employer] [facility]. provides no warranty or guarantee of the accuracy or completeness of information in this document.
[2024-01-11 13:18] LABS: Free T3 2.44 pg/mL (2.18-3.98); Thyroid Stimulating Hormone 2.857 uIU/mL (0.358-3.740)
== END 2024-01-11 11:52 | disposition home or self-care (01) ==
LOC: LAB 11:52
PROVIDERS: Visit Provider Family Medicine
DX: E03.9 Hypothyroidism, unspecified (principal)
CPT/HCPCS: 36415; 84436; 84443; 84481

== ENCOUNTER 2024-01-12 10:19 | Emergency (ER) | payer BC, SELFPAY ==
[2024-01-12 10:31] VITALS: BP 126/94; PULSE 86; TEMP 36.4; O2SAT 98; BMI 35.5
--- OUTSIDE RECORDS SUMMARY | 2024-01-12 10:31 | XMS_ITS | CCD ---
Author Organization [facility] Care Team Providers Care [employer] Name Role Phone SEB WALLER Admitting Unavailable [...] DR MATSON Attending Unavailable HOY ., DR MATOSN Consulting Unavailable REQUEST, NONE LISTED Primary Care Unavaila ble HOY ., DR MATSON Attending Unavailable HOY ., DR MATSON Consulting Unavailable HOY ., DR MATSON Admitting Unavailable REQUEST, NONE LISTED Primary Care Unavaila ble ELVIN, JOVANY Attending Unavailable Problems Active Problems Problem [...] 02-07-2023 EUA Statement SEE BELOW Normal The [facility] Comment on above: Result Comment: This test [...] sooner. Performed By: #### C VDAGS #### [facility] [address] [address] [address] Amber Fairbanks SARS-CoV-2 (COVID-19) RNA MARIZOL+probe Ql (Unsp spec) Positive Abnormal NEGATIVE [facility] Comment on above: Performed By: #### C VDAGS #### [facility] [address] [address] [address] Amber Fairbanks Covid-19 PCR (CVDTBH)on 09-13 SARS-CoV-2 (COVID-19) RNA MARIZOL+probe Ql (Unsp spec) Not detected Normal NOT DETECTED [facility] Comment on above: Result Comment: When [...] for this test is supported by the Documentation Consultant of Health and Human Service's declaration that [...] used). Performed By: #### C VDTBH #### [facility] [address] [place] [address] Dr. Amber Fairbanks GROUP A STREP CULTUREon 09-13 S. pyogenes Ag Ql (Unsp spec) Culture Observations: NEGATIVE FOR GROUP A STREPTOCOCCUS. Normal [facility] Comment on above: Performed By: #### C VDAGA #### [facility] [address] [place] [address] Dr. Amber Fairbanks INFLUENZA A AND B AGon 09-27 INFLUENZA A AG Negative Normal NEGATIVE SEE COMMENT [facility] Comment on above: Performed By: #### I NFLUAB #### [facility] [address] [place] [address] Dr. Amber Fairbanks INFLUENZA B AG Negative Normal NEGATIVE SEE COMMENT [facility] Comment on above: Performed By: #### I NFLUAB #### [facility] [address] [place] [address] Dr. Amber Fairbanks INTERNAL CONTROLS Within Normal Limits Normal Within Normal Limits [facility] Comment on above: Performed By: #### I NFLUAB #### [facility] [address] [place] [address] Dr. Amber Fairbanks STREPT SCREENon 09-27-2022 STREP SCREEN A Negative Normal NEGATIVE [facility] Comment on above: Performed By: #### C VDAGA #### [facility] [address] [place] [address] Dr. Amber Fairbanks CBC AUTO DIFFon 05-30-2022 BASO # 0.0 103/ul Normal 0.0-0.1 [facility] Comment on above: Performed By: #### C BC #### [facility] [address] [place] [address] Dr. Amber Fairbanks Basophils/100 WBC (Bld) 0.3 % Normal 0.2-2.0 [facility] Comment on above: Performed By: #### C BC #### [facility] [address] [place] [address] Dr. Amber Fairbanks EO # 0.0 103/ul Normal 0.0-0.7 [facility] Comment on above: Performed By: #### C BC #### [facility] [address] [place] [address] Dr. Amber Fairbanks Eosinophils/100 WBC (Bld) 0.3 % Critically low 0.9-7.0 [facility] Comment on above: Performed By: #### C BC #### [facility] [address] [place] [address] Dr. Amber Fairbanks Erythrocyte distribution width (RBC) [Ratio] 12.8 % Normal 11.0-15.0 [facility] Comment on above: Performed By: #### C BC #### [facility] [address] [place] [address] Dr. Amber Fairbanks Hematocrit (Bld) [Volume fraction] 38.5 % Normal 36.0-48.0 [facility] Comment on above: Performed By: #### C BC #### [facility] [address] [place] [address] Dr. Amber Fairbanks Hemoglobin (Bld) [Mass/Vol] 12.9 g/dL Normal 12.0-16.0 [facility] Comment on above: Performed By: #### C BC #### [facility] [address] [address] [address] Amber Fairbanks IG # 0.00 10e3/ul Normal 0.00-0.03 [facility] Comment on above: Performed By: #### C BC #### [facility] [address] [address] [address] Amber Fairbanks IG % 0.0 % Normal 0.0-0.5 [facility] Comment on above: Performed By: #### C BC #### [facility] [address] [place] [address] Dr. Amber Fairbanks LYMPH # 1.1 103/ul Critically low 1.2-3.8 [facility] Comment on above: Performed By: #### C BC #### [facility] [address] [place] [address] Dr. Amber Fairbanks Lymphocytes/100 WBC (Bld) 27.2 % Normal 20.5-60.0 [facility] Comment on above: Performed By: #### C BC #### [facility] [address] [place] [address] Dr. Amber Fairbanks MANUAL DIFF REQ NO Normal [facility] Comment on above: Performed By: #### C BC #### [facility] [address] [place] [address] Dr. Amber Fairbanks MCH (RBC) [Entitic mass] 29.1 pg Normal 26.7-34.0 [facility] Comment on above: Performed By: #### C BC #### [facility] [address] [place] [address] Dr. Amber Fairbanks MCHC (RBC) [Mass/Vol] 33.5 g/dL Normal 29.9-35.2 [facility] Comment on above: Performed By: #### C BC #### [facility] [address] [place] [address] Dr. Amber Fairbanks MCV (RBC) [Entitic vol] 86.7 fL Normal 81.0-99.0 [facility] Comment on above: Performed By: #### C BC #### [facility] [address] [place] [address] Dr. Amber Fairbanks MONO # 0.5 103/ul Normal 0.3-0.8 [facility] Comment on above: Performed By: #### C BC #### [facility] [address] [place] [address] Dr. Amber Fairbanks Monocytes/100 WBC (Bld) 13.5 % Critically high 1.7-12.0 [facility] Comment on above: Performed By: #### C BC #### [facility] [address] [place] [address] Dr. Amber Fairbanks NEUT # 2.3 103/ul Normal 1.4-6.5 [facility] Comment on above: Performed By: #### C BC #### [facility] [address] [place] [address] Dr. Amber Fairbanks Neutrophils/100 WBC (Bld) 58.7 % Normal 43.0-75.0 [facility] Comment on above: Performed By: #### C BC #### [facility] [address] [place] [address] Dr. Amber Fairbanks Platelet mean volume (Bld) [Entitic vol] 10.5 fL Normal 9.5-13.5 [facility] Comment on above: Performed By: #### C BC #### [facility] [address] [place] [address] Dr. Amber Fairbanks PLT 241 103/ul Normal 150-450 [facility] Comment on above: Performed By: #### C BC #### [facility] [address] [place] [address] Dr. Amber Fairbanks RBC 4.44 106/ul Normal 4.20-5.40 [facility] Comment on above: Performed By: #### C BC #### [facility] [address] [place] [address] Dr. Amber Fairbanks WBC 3.9 103/ul Critically low 4.0-11.0 [facility] Comment on above: Performed By: #### C BC #### [facility] [address] [place] [address] Dr. Amber Fairbanks CPKon 05-30-2022 CK [Catalytic activity/Vol] 178 U/L Normal 26-192 [facility] Comment on above: Performed By: #### C MP, CK #### [facility] [address] [place] [address] Dr. Amber Fairbanks Covid-19 PCR (CVDTB)on 05-14 SARS-CoV-2 (COVID-19) RNA MARIZOL+probe Ql (Unsp spec) Not detected Normal NOT DETECTED [facility] Comment on above: Result Comment: This test is not yet approved or cleared by the [place] FDA. When there are no FDA-approved or cleared tests available, and other criteria are met, FDA can make tests available under an emergency access mechanism called an Emergency Use Authorization (EUA). The EUA for this test is supported by the [place] of Health and Human Service's (HHS's) declaration [...] SARS-CoV-2. Performed By: #### C VDTBH #### [facility] [address] [place] [address] Dr. Amber Fairbanks INFLUENZA A AND B AGon 05-30 INFLUENZA A AG Negative Normal NEGATIVE SEE COMMENT [facility] Comment on above: Performed By: #### C VDAGA #### [facility] [address] [place] [address] Dr. Amber Fairbanks INFLUENZA B AG Negative Normal NEGATIVE SEE COMMENT [facility] Comment on above: Performed By: #### C VDAGA #### [facility] [address] [place] [address] Dr. Amber Fairbanks INTERNAL CONTROLS Within Normal Limits Normal Within Normal Limits [facility] Comment on above: Performed By: #### C VDAGA #### [facility] [address] [place] [address] Dr. Amber Fairbanks MONOon 05-30-2022 Monocytes (Bld) [#/Vol] Negative Normal NEGATIVE [facility] Comment on above: Performed By: #### C VDAGA #### [facility] [address] [place] [address] Dr. Amber Fairbanks PROF 14(COMP METB)on 022 Albumin [Mass/Vol] 3.7 g/dL Normal 3.4-5.0 [facility] Comment on above: Performed By: #### C VDAGA #### [facility] [address] [place] [address] Dr. Amber Fairbanks Albumin/Globulin [Mass ratio] 0.8 {ratio} Normal [facility] Comment on above: Performed By: #### C VDAGA #### [facility] [address] [place] [address] Dr. Amber Fairbanks ALP [Catalytic activity/Vol] 72 U/L Normal 46-116 [facility] Comment on above: Performed By: #### C VDAGA #### [facility] [address] [place] [address] Dr. Amber Fairbanks ALT [Catalytic activity/Vol] 20 U/L Normal 14-59 [facility] Comment on above: Performed By: #### C VDAGA #### [facility] [address] [place] [address] Dr. Amber Fairbanks Anion gap [Moles/Vol] 14.7 mmol/L Normal [facility] Comment on above: Performed By: #### C VDAGA #### [facility] [address] [place] [address] Dr. Amber Fairbanks AST [Catalytic activity/Vol] 26 U/L Normal 15-37 [facility] Comment on above: Performed By: #### C VDAGA #### [facility] [address] [place] [address] Dr. Amber Fairbanks Bilirubin [Mass/Vol] 0.5 mg/dL Normal 0.2-1.0 [facility] Comment on above: Performed By: #### C VDAGA #### [facility] [address] [place] [address] Dr. Amber Fairbanks Calcium [Mass/Vol] 8.8 mg/dL Normal 8.5-10.1 [facility] Comment on above: Performed By: #### C VDAGA #### [facility] [address] [address] [address] Amber Fairbanks Chloride [Moles/Vol] 101 mmol/L Normal 98-107 [facility] Comment on above: Performed By: #### C VDAGA #### [facility] [address] [place] [address] Dr. Amber Fairbanks CO2 [Moles/Vol] 24.9 mmol/L Normal 21.0-32.0 [facility] Comment on above: Performed By: #### C VDAGA #### [facility] [address] [place] [address] Dr. Amber Fairbanks Creatinine [Mass/Vol] 0.83 mg/dL Normal 0.55-1.02 [facility] Comment on above: Performed By: #### C VDAGA #### [facility] [address] [place] [address] Dr. Amber Fairbanks EGFR-AF BURUNDIAN >60 Normal >=60 [facility] Comment on above: Performed By: #### C VDAGA #### [facility] [address] [place] [address] Dr. Amber Fairbanks EGFR-NON AF BURUNDIAN >60 Normal >=60 [facility] Comment on above: Performed By: #### C VDAGA #### [facility] [address] [place] [address] Dr. Amber Fairbanks Globulin (S) [Mass/Vol] 4.4 g/dL Normal [facility] Comment on above: Performed By: #### C VDAGA #### [facility] [address] [place] [address] Dr. Amber Fairbanks Glucose [Mass/Vol] 88 mg/dL Normal 74-106 [facility] Comment on above: Performed By: #### C VDAGA #### [facility] [address] [place], [place] [id number] Dr. Amber Fairbanks Potassium [Moles/Vol] 3.6 mmol/L Normal 3.5-5.1 [facility] Comment on above: Performed By: #### C VDAGA #### [facility] [address] [place] [address] Dr. Amber Fairbanks Protein [Mass/Vol] 8.1 g/dL Normal 6.4-8.2 [facility] Comment on above: Performed By: #### C VDAGA #### [facility] [address] [place] [address] Dr. Amber Fairbanks Sodium [Moles/Vol] 137 mmol/L Normal 136-145 [facility] Comment on above: Performed By: #### C VDAGA #### [facility] [address] [place] [address] Dr. Amber Fairbanks Urea nitrogen [Mass/Vol] 11.0 mg/dL Normal 7.0-18.0 [facility] Comment on above: Performed By: #### C VDAGA #### [facility] [address] [place] [address] Dr. Amber Fairbanks Urea nitrogen/Creatinin e [Mass ratio] 13.3 mg/mg Normal [facility] Comment on above: Performed By: #### C VDAGA #### [facility] [address] [place] [address] Dr. Amber Fairbanks SED RATE [facility] 2021 SED RATE 27 mm/hr Critically high <=20 [facility] Comment on above: Performed By: #### S EDR #### [facility] [address] [place] [address] Dr. Amber Fairbanks US PORSHA DOP LEG [...] by: CAROLINA Ewing: 2022-05-30 10:21 Normal [facility] Covid-19 PCR (CVDTBH)on 05-14 SARS-CoV-2 (COVID-19) RNA MARIZOL+probe Ql (Unsp spec) Not detected Normal NOT DETECTED [facility] Comment on above: Result Comment: When [...] for this test is supported by the [place] of Health and Human Service's declaration that [...] used). Performed By: #### C VDAGA #### [facility] [address] [place] [address] Dr. Amber Fairbanks ASYMPTOMATIC COVID-19 ANTIGE Non 04-23-2022 EUA Statement SEE BELOW Normal [facility] Comment on above: Result Comment: This test [...] sooner. Performed By: #### C VDAGA #### [facility] [address] [place] [address] Dr. Amber Fairbanks SARS-CoV-2 (COVID-19) RNA MARIZOL+probe Ql (Unsp spec) Positive Critically abnormal NEGATIVE [facility] Comment on above: Result Comment: SARS -CoV-2 antigen present; does not rule out coinfection with other pathogens. Performed By: #### C VDAGA #### [facility] [address] [place] [address] Dr. Amber Fairbanks Covid-19 PCR (CVDTBH)on SARS-CoV-2 (COVID-19) RNA MARIZOL+probe Ql (Unsp spec) Detected Critically abnormal NOT DETECTED [facility] Comment on above: Result Comment: This test is not yet approved or cleared by the [place] FDA. When there are no FDA-approved or cleared tests available, and other criteria are met, FDA can make tests available under an emergency access mechanism called an Emergency Use Authorization (EUA). The EUA for this test is supported by the [place] of Health and Human Service's declaration that [...] used). Performed By: #### C VDTBH #### [facility] [address] [place] [address] Dr. Amber Fairbanks Covid-19 PCR (CVDTBH)on SARS-CoV-2 (COVID-19) RNA MARIZOL+probe Ql (Unsp spec) Not detected Normal NOT DETECTED [facility] Comment on above: Result Comment: When [...] for this test is supported by the [place] of Health and Human Service's declaration that [...] longer be used). Performed By: #### C [facility] #### [facility] [address] [place], [place] [address] Dr. Amber Fairbanks Provider Letteron 01-31-2022 Provider Letter January 31, 2022 DEMETRIA BURKS [address] [place] [phone] DEMETRIA BURKS 1985 Dear Demetria Brenner , We have been trying to reach you with no success. It is important that you return our call regarding your referral from Dr. Beckford upon receiving this letter. Also, at the time of your call, please provide us with your current information. Thank you for your prompt attention to this matter. Sincerely, General Surgery [phone] [facility] Encounters Encounter Date Encounter Type Care Provider [...] Facility:[facility] Payers Date Payer Category Payer Unknown [id number] 1985 Unknown [id number] 2.16.84 [id number] 1985 Unknown [id number] 2.16.84 [id number] 1985 Unknown [id number] 2.16.84 [id number] 1985 Unknown [id number] 2.16.84 [id number] 1985 Unknown [id number] 2.16.84 [id number] 1985 Unknown [id number] 2.16.84 [id number] 1985 Unknown [id number] 2.16.84 [id number] 1985 Unknown [id number] 2.16.84 [id number] 1959 Unknown [id number] Summary Purpose Family History No Family History Records FoundNo Family History Records FoundNo Family History Records Found Advance Directives No Advanced Directives Records FoundNo Advanced Directives Records FoundNo Advanced Directives Records Found Additional Source Comments INFORMATION SOURCE (unrecogn ized section and content) DATE CREATED AUTHOR 02/02/2022 [facility] DATE CREATED AUTHOR AUTHOR'S ORGANIZ ATION 02/10/2023 [facility] DATE CREATED AUTHOR AUTHOR'S ORGANIZ ATION 01/07/2024 [facility] FOR RECORDS PERTAINING TO PATIENTS WHO ARE [...] BE BASED ON THE PRIMARY CLINICAL RECORDS. [facility]. provides no warranty or guarantee of the accuracy or completeness of information in this document.
--- NOTE | 2024-01-12 10:48 | XR_ITS ---
The [address] [address] Patient Name: MAGED BURKS MRN: [id number] date: 1985 Sex: F Assigned Patient Location: ER Current Patient Location: ER Accession/Order Number: [id number] Exam Date: 01/12/2024 11:18 Report Date: 01/12/2024 12:13 At the request of: TERESSA GALLEGOS Procedure: XR foot IVÁN min 3V EXAMINATION: XR ankle IVÁN min 3V, XR foot IVÁN min 3V REASON FOR EXAM: fall TECHNIQUE: Images of the bilateral ankle and feet. FINDINGS: There are surgical anchors in the lateral aspect of the right talar body from prior surgical repair. The right ankle is normally aligned. No acute dislocation or fracture in the right ankle. Left ankle is normally aligned. There is some mild lateral soft tissue swelling in the left ankle and minimal lateral and medial soft tissue swelling right ankle. Foot findings: Each plantar arch is preserved. On the left, there is a nondisplaced fracture base of fifth metatarsal. No other fracture in the left foot. No fracture or dislocation in the right foot. XR/XR foot IVÁN min 3V IMPRESSION: 1. Nondisplaced fracture of the base of the left fifth metatarsal. 2. No dislocation or acute fracture in either ankle. 3. The right foot is negative. Electronically authenticated by: AUSTIN JAQUEZ Date: 01/12/2024 12:13
--- NOTE | 2024-01-12 10:48 | XR_ITS ---
The [address] [address] Patient Name: MAGED BURKS MRN: [id number] date: 1985 Sex: F Assigned Patient Location: ER Current Patient Location: ER Accession/Order Number: [id number] Exam Date: 01/12/2024 11:18 Report Date: 01/12/2024 12:13 At the request of: TERESSA GALLEGOS Procedure: XR ankle IVÁN min 3V EXAMINATION: XR ankle IVÁN min 3V, XR foot IVÁN min 3V REASON FOR EXAM: fall TECHNIQUE: Images of the bilateral ankle and feet. FINDINGS: There are surgical anchors in the lateral aspect of the right talar body from prior surgical repair. The right ankle is normally aligned. No acute dislocation or fracture in the right ankle. Left ankle is normally aligned. There is some mild lateral soft tissue swelling in the left ankle and minimal lateral and medial soft tissue swelling right ankle. Foot findings: Each plantar arch is preserved. On the left, there is a nondisplaced fracture base of fifth metatarsal. No other fracture in the left foot. No fracture or dislocation in the right foot. XR/XR ankle IVÁN min 3V IMPRESSION: 1. Nondisplaced fracture of the base of the left fifth metatarsal. 2. No dislocation or acute fracture in either ankle. 3. The right foot is negative. Electronically authenticated by: AUSTIN JAQUEZ Date: 01/12/2024 12:13
--- NOTE | 2024-01-12 16:36 | ED_ITS ---
HPI HPI - Extremity Injury (Lower) General Chief Complaint: Extremity Injury, Lower Stated Complaint: BILATERAL LOWER EXTREMETY INJURY Time Seen by Provider: 01/12/24 10:40 Source: patient Mode of arrival: walk-in History of Present Illness HPI Narrative: Patient comes to the ER with a bilateral ankle pain after she recently had a fall yesterday while going down stairs at the end of the last 2 stairs, she was carrying her daughter who is here right now, and she has been having pain in the right ankle at was as a left foot, there was no other injury no loss of consciousness no other concerns Related Data Previous Rx's ?Medication ?Instructions ?Recorded diclofenac sodium 75 mg 75 mg PO BID PRN pain #20 tabs 01/12/24 tablet,delayed release Allergies Allergy/AdvReac Type Severity Reaction Status Date / Time No Known Drug Allergies Allergy Verified 01/12/24 10:34 Opioid HPI Opioid Management Most Recent Pain and Opioid Data: No Data to Display Review of Systems ROS Status of ROS 10 or more systems reviewed and unremark able except as noted in history and below Exam Narrative Exam Narrative: Nurses notes and vital signs reviewed and patient is not hypoxic. General: Well-appearing and in no apparent distress. Skin: Warm, dry, no pallor noted. No rash. Head: Normocephalic, atraumatic. Neck: Supple, non-tender. Eye: Pupils are equal, round and EOMI. No scleral icterus. Ears, Nose, Mouth, and Throat: TM are clear, no nasal mucosal hypertrophy. Oral mucosa is moist, no posterior oropharynx erythema, uvula is mid-line Cardiovascular: Regular Rate and Rhythm without murmur, gallop or rub. Respiratory: No accessory muscle use or respiratory distress. Lungs are clear to auscultation, no wheezing, rales or rhonchi Chest Wall: no tenderness Back: No midline thoracic or lumbar vertebral tenderness. No CVA tenderness Musculoskeletal: normal ROM, no calf ,the patient have swelling of the right lateral malleolus, is also tenderness upon palpation of the left foot mostly at the lateral aspect with the patient have good anterior tibial pulse and there is no ecchymosis signs there is no other injuries detected GI: Abdomen is soft, non-distended. Normal bowel sounds. No masses appreciated. No tenderness to palpation. No rebound, guarding, or rigidity noted. Neurological: A&O x4. No cranial nerve dysfunction observed. No truncal ataxia. Moves all extremities. Sensation intact. Psychiatric: Cooperative and interactive. Normal mood and affect. Constitutional Vital Signs, click to edit/add: Last Vital Signs Temp 97.6 F 01/12/24 10:31 Pulse 86 01/12/24 10:31 Resp 16 01/12/24 10:31 BP 126/94 H 01/12/24 10:31 Pulse Ox 98 01/12/24 10:31 O2 Del Method Room Air 01/12/24 10:31 Course Vital Signs Vital signs: Vital Signs Temperature 97.6 F 01/12/24 10:31 Pulse Rate 86 01/12/24 10:31 Respiratory Rate 16 01/12/24 10:31 Blood Pressure 126/94 H 01/12/24 10:31 Pulse Oximetry 98 01/12/24 10:31 Oxygen Delivery Method Room Air 01/12/24 10:31 Temperature 97.6 F 01/12/24 10:31 Pulse Rate 86 01/12/24 10:31 Respiratory Rate 16 01/12/24 10:31 Blood Pressure 126/94 H 01/12/24 10:31 Pulse Oximetry 98 01/12/24 10:31 Oxygen Delivery Method Room Air 01/12/24 10:31 MDM - Extremity Injury (Lower) MDM Narrative Medical decision making narrative: Patient x-ray of the ankle on the right side showed no acute pathology as well as the left side but the patient have a fracture at the base of the fifth metatarsal on the left side that is nondisplaced Work note the patient was provided with a boot at the immobilization for the left foot and in addition to non weightbearing with the crutches The patient was referred to podiatry as outpatient NSAID for pain control Patient also to have Roel wrap applied to the right ankle Elevated and dressed for both feet The patient is to follow up with primary care physician in next 2-3 days or to return to the emergency department should any of the signs or symptoms worsen or new symptoms develop. The patient agrees with the following Diagnosis and Treatment plan and the patient will be discharged home. Discharge Plan Discharge Stand Alone Forms: Portal Instructions Chief Complaint: Extremity Injury, Lower Clinical Impression: Metatarsal bone fracture Patient Disposition: Home, Self-Care Time of Disposition Decision: 14:21 Condition: Good Prescriptions / Home Meds: New diclofenac sodium 75 mg tablet,delayed release (DR/EC) 75 mg PO BID PRN (Reason: pain ) Qty: 20 0RF Print Language: Swedish Referrals: Physician,Non-Staff, MD [Primary Care Provider] - 1 week Rick English DPM [Physician] - 1 week Discharge Date/Time: 01/12/24 14:35
== END 2024-01-12 14:35 | disposition home or self-care (01) ==
PROVIDERS: Emergency Provider Emergency Medicine
DX: S92.355A Nondisplaced fracture of fifth metatarsal bone, left foot, initial encounter for closed fracture (principal); W10.9XXA Fall (on) (from) unspecified stairs and steps, initial encounter
CPT/HCPCS: 73610; 73630; 99283

== ENCOUNTER 2024-01-24 07:51 | Outpatient (OUT) | payer BC, SELFPAY ==
--- NOTE | 2024-01-24 07:53 | MR_ITS ---
The [address] [address] Patient Name: MAGED BURKS MRN: [id number] date: 1985 Sex: F Assigned Patient Location: MRI Current Patient Location: MRI Accession/Order Number: [id number] Exam Date: 01/24/2024 08:00 Report Date: 01/24/2024 09:43 At the request of: DANO BECKFORD Procedure: MR head/brain wo con EXAMINATION: MR head/brain wo con HISTORY: Migraine G43.909 ; chronic headaches increasing in frequency COMPARISON: CT head 10/26/2018 TECHNIQUE: A variety of imaging planes and parameters were utilized for visualization of suspected pathology. Images were performed without contrast. FINDINGS: CEREBRUM: No edema, hemorrhage, mass, acute infarction, or inappropriate atrophy. CEREBELLUM: No edema, hemorrhage, mass, acute infarction, or inappropriate atrophy. BRAINSTEM: No edema, hemorrhage, mass, acute infarction, or inappropriate atrophy. CSF SPACES: Ventricles, cisterns, and sulci are appropriate for age. No hydrocephalus, subarachnoid hemorrhage, or mass. SKULL: No mass or other significant visible lesion. SINUSES: Limited views demonstrate no significant mucosal thickening or fluid. ORBITS: Limited views are unremarkable. OTHER: Negative. MR/MR head/brain wo con IMPRESSION: 1. Normal examination. Electronically authenticated by: CAROLINA CAMPOS Date: 01/24/2024 09:43
--- OUTSIDE RECORDS SUMMARY | 2024-01-24 07:53 | XMS_ITS | CCD ---
Author Organization [facility] Care Team Providers Care Spinner Hand Name Role Phone SEB WALLER Admitting Unavailable [...] 02-07-2023 EUA Statement SEE BELOW Normal [facility] Comment on above: Result Comment: This [...] sooner. Performed By: #### C VDAGS #### [facility] [address] [address] [address] Amber Fairbanks SARS-CoV-2 (COVID-19) RNA MARIZOL+probe Ql (Unsp spec) Positive Abnormal NEGATIVE [facility] Comment on above: Performed By: #### C VDAGS #### [facility] [address] [address] [address] Amber Fairbanks Covid-19 PCR (CVDTBH)on 09-13 SARS-CoV-2 (COVID-19) RNA MARIZOL+probe Ql (Unsp spec) Not detected Normal NOT DETECTED [facility] Comment on above: Result Comment: When [...] for this test is supported by the [place] [employer] Education Coordinator of Health and Human Service's declaration that [...] used). Performed By: #### C VDTBH #### [facility] [address] [place] [address] Dr. Amber Fairbanks GROUP A STREP CULTUREon 09-13 S. pyogenes Ag Ql (Unsp spec) Culture Observations: NEGATIVE FOR GROUP A STREPTOCOCCUS. Normal [facility] Comment on above: Performed By: #### C VDAGA #### [facility] [address] [place] [address] Dr. Amber Fairbanks INFLUENZA A AND B AGon 09-27 INFLUENZA A AG Negative Normal NEGATIVE SEE COMMENT [facility] Comment on above: Performed By: #### I NFLUAB #### [facility] [address] [place] [address] Dr. Amber Fairbanks INFLUENZA B AG Negative Normal NEGATIVE SEE COMMENT [facility] Comment on above: Performed By: #### I NFLUAB #### [facility] [address] [place] [address] Dr. Amber Fairbanks INTERNAL CONTROLS Within Normal Limits Normal Within Normal Limits [facility] Comment on above: Performed By: #### I NFLUAB #### [facility] [address] [place] [address] Dr. Amber Fairbanks STREPT SCREENon 09-27-2022 STREP SCREEN A Negative Normal NEGATIVE [facility] Comment on above: Performed By: #### C VDAGA #### [facility] [address] [place] [address] Dr. Amber Fairbanks CBC AUTO DIFFon 05-30-2022 BASO # 0.0 103/ul Normal 0.0-0.1 [facility] Comment on above: Performed By: #### C BC #### [facility] [address] [place] [address] Dr. Amber Fairbanks Basophils/100 WBC (Bld) 0.3 % Normal 0.2-2.0 [facility] Comment on above: Performed By: #### C BC #### [facility] [address] [place] [address] Dr. Amber Fairbanks EO # 0.0 103/ul Normal 0.0-0.7 [facility] Comment on above: Performed By: #### C BC #### [facility] [address] [place] [address] Dr. Amber Fairbanks Eosinophils/100 WBC (Bld) 0.3 % Critically low 0.9-7.0 [facility] Comment on above: Performed By: #### C BC #### [facility] [address] [place] [address] Dr. Amber Fairbanks Erythrocyte distribution width (RBC) [Ratio] 12.8 % Normal 11.0-15.0 [facility] Comment on above: Performed By: #### C BC #### [facility] [address] [place] [address] Dr. Amber Fairbanks Hematocrit (Bld) [Volume fraction] 38.5 % Normal 36.0-48.0 [facility] Comment on above: Performed By: #### C BC #### [facility] [address] [place] [address] Dr. Amber Fairbanks Hemoglobin (Bld) [Mass/Vol] 12.9 g/dL Normal 12.0-16.0 [facility] Comment on above: Performed By: #### C BC #### [facility] [address] [address] [address] Amber Fairbanks IG # 0.00 10e3/ul Normal 0.00-0.03 [facility] Comment on above: Performed By: #### C BC #### [facility] [address] [address] [address] Amber Fairbanks IG % 0.0 % Normal 0.0-0.5 [facility] Comment on above: Performed By: #### C BC #### [facility] [address] [place] [address] Dr. Amber Fairbanks LYMPH # 1.1 103/ul Critically low 1.2-3.8 [facility] Comment on above: Performed By: #### C BC #### [facility] [address] [place] [address] Dr. Amber Fairbanks Lymphocytes/100 WBC (Bld) 27.2 % Normal 20.5-60.0 [facility] Comment on above: Performed By: #### C BC #### [facility] [address] [place] [address] Dr. Amber Fairbanks MANUAL DIFF REQ NO Normal [facility] Comment on above: Performed By: #### C BC #### [facility] [address] [place] [address] Dr. Amber Fairbanks MCH (RBC) [Entitic mass] 29.1 pg Normal 26.7-34.0 [facility] Comment on above: Performed By: #### C BC #### [facility] [address] [place] [address] Dr. Amber Fairbanks MCHC (RBC) [Mass/Vol] 33.5 g/dL Normal 29.9-35.2 [facility] Comment on above: Performed By: #### C BC #### [facility] [address] [place] [address] Dr. Amber Fairbanks MCV (RBC) [Entitic vol] 86.7 fL Normal 81.0-99.0 [facility] Comment on above: Performed By: #### C BC #### [facility] [address] [place] [address] Dr. Amber Fairbanks MONO # 0.5 103/ul Normal 0.3-0.8 [facility] Comment on above: Performed By: #### C BC #### [facility] [address] [place] [address] Dr. Amber Fairbanks Monocytes/100 WBC (Bld) 13.5 % Critically high 1.7-12.0 [facility] Comment on above: Performed By: #### C BC #### [facility] [address] [place] [address] Dr. Amber Fairbanks NEUT # 2.3 103/ul Normal 1.4-6.5 [facility] Comment on above: Performed By: #### C BC #### [facility] [address] [place] [address] Dr. Amber Fairbanks Neutrophils/100 WBC (Bld) 58.7 % Normal 43.0-75.0 [facility] Comment on above: Performed By: #### C BC #### [facility] [address] [place] [address] Dr. Amber Fairbanks Platelet mean volume (Bld) [Entitic vol] 10.5 fL Normal 9.5-13.5 [facility] Comment on above: Performed By: #### C BC #### [facility] [address] [place] [address] Dr. Amber Fairbanks PLT 241 103/ul Normal 150-450 [facility] Comment on above: Performed By: #### C BC #### [facility] [address] [place] [address] Dr. Amber Fairbanks RBC 4.44 106/ul Normal 4.20-5.40 [facility] Comment on above: Performed By: #### C BC #### [facility] [address] [place] [address] Dr. Amber Fairbanks WBC 3.9 103/ul Critically low 4.0-11.0 [facility] Comment on above: Performed By: #### C BC #### [facility] [address] [place] [address] Dr. Amber Fairbanks CPKon 05-30-2022 CK [Catalytic activity/Vol] 178 U/L Normal 26-192 [facility] Comment on above: Performed By: #### C MP, CK #### [facility] [address] [place] [address] Dr. Amber Fairbanks Covid-19 PCR (CVDTB)on 05-14 SARS-CoV-2 (COVID-19) RNA MARIZOL+probe Ql (Unsp spec) Not detected Normal NOT DETECTED [facility] Comment on above: Result Comment: This test is not yet approved or cleared by the [place] FDA. When there are no FDA-approved or cleared tests available, and other criteria are met, FDA can make tests available under an emergency access mechanism called an Emergency Use Authorization (EUA). The EUA for this test is supported by the [place] of Health and Human Service's (HHS's) declaration [...] SARS-CoV-2. Performed By: #### C VDTBH #### [facility] [address] [place] [address] Dr. Amber Fairbanks INFLUENZA A AND B AGon 05-30 INFLUENZA A AG Negative Normal NEGATIVE SEE COMMENT [facility] Comment on above: Performed By: #### C VDAGA #### [facility] [address] [place] [address] Dr. Amber Fairbanks INFLUENZA B AG Negative Normal NEGATIVE SEE COMMENT [facility] Comment on above: Performed By: #### C VDAGA #### [facility] [address] [place] [address] Dr. Amber Fairbanks INTERNAL CONTROLS Within Normal Limits Normal Within Normal Limits [facility] Comment on above: Performed By: #### C VDAGA #### [facility] [address] [place] [address] Dr. Amber Fairbanks MONOon 05-30-2022 Monocytes (Bld) [#/Vol] Negative Normal NEGATIVE [facility] Comment on above: Performed By: #### C VDAGA #### [facility] [address] [place] [address] Dr. Amber Fairbanks PROF 14(COMP METB)on 022 Albumin [Mass/Vol] 3.7 g/dL Normal 3.4-5.0 [facility] Comment on above: Performed By: #### C VDAGA #### [facility] [address] [place] [address] Dr. Amber Fairbanks Albumin/Globulin [Mass ratio] 0.8 {ratio} Normal [facility] Comment on above: Performed By: #### C VDAGA #### [facility] [address] [place] [address] Dr. Amber Fairbanks ALP [Catalytic activity/Vol] 72 U/L Normal 46-116 [facility] Comment on above: Performed By: #### C VDAGA #### [facility] [address] [place] [address] Dr. Amber Fairbanks ALT [Catalytic activity/Vol] 20 U/L Normal 14-59 [facility] Comment on above: Performed By: #### C VDAGA #### [facility] [address] [place] [address] Dr. Amber Fairbanks Anion gap [Moles/Vol] 14.7 mmol/L Normal [facility] Comment on above: Performed By: #### C VDAGA #### [facility] [address] [place] [address] Dr. Amber Fairbanks AST [Catalytic activity/Vol] 26 U/L Normal 15-37 [facility] Comment on above: Performed By: #### C VDAGA #### [facility] [address] [place] [address] Dr. Amber Fairbanks Bilirubin [Mass/Vol] 0.5 mg/dL Normal 0.2-1.0 [facility] Comment on above: Performed By: #### C VDAGA #### [facility] [address] [place] [address] Dr. Amber Fairbanks Calcium [Mass/Vol] 8.8 mg/dL Normal 8.5-10.1 [facility] Comment on above: Performed By: #### C VDAGA #### [facility] [address] [address] [address] Amber Fairbanks Chloride [Moles/Vol] 101 mmol/L Normal 98-107 [facility] Comment on above: Performed By: #### C VDAGA #### [facility] [address] [place] [address] Dr. Amber Fairbanks CO2 [Moles/Vol] 24.9 mmol/L Normal 21.0-32.0 [facility] Comment on above: Performed By: #### C VDAGA #### [facility] [address] [place] [address] Dr. Amber Fairbanks Creatinine [Mass/Vol] 0.83 mg/dL Normal 0.55-1.02 [facility] Comment on above: Performed By: #### C VDAGA #### [facility] [address] [place] [address] Dr. Amber Fairbanks EGFR-AF KAZAKH >60 Normal >=60 [facility] Comment on above: Performed By: #### C VDAGA #### [facility] [address] [place] [address] Dr. Amber Fairbanks EGFR-NON AF KAZAKH >60 Normal >=60 [facility] Comment on above: Performed By: #### C VDAGA #### [facility] [address] [place] [address] Dr. Amber Fairbanks Globulin (S) [Mass/Vol] 4.4 g/dL Normal [facility] Comment on above: Performed By: #### C VDAGA #### [facility] [address] [place] [address] Dr. Amber Fairbanks Glucose [Mass/Vol] 88 mg/dL Normal 74-106 [facility] Comment on above: Performed By: #### C VDAGA #### [facility] [address] [place], [place] [id number] Dr. Amber Fairbanks Potassium [Moles/Vol] 3.6 mmol/L Normal 3.5-5.1 [facility] Comment on above: Performed By: #### C VDAGA #### [facility] [address] [place] [address] Dr. Amber Fairbanks Protein [Mass/Vol] 8.1 g/dL Normal 6.4-8.2 [facility] Comment on above: Performed By: #### C VDAGA #### [facility] [address] [place] [address] Dr. Amber Fairbanks Sodium [Moles/Vol] 137 mmol/L Normal 136-145 [facility] Comment on above: Performed By: #### C VDAGA #### [facility] [address] [place] [address] Dr. Amber Fairbanks Urea nitrogen [Mass/Vol] 11.0 mg/dL Normal 7.0-18.0 [facility] Comment on above: Performed By: #### C VDAGA #### [facility] [address] [place] [address] Dr. Amber Fairbanks Urea nitrogen/Creatinin e [Mass ratio] 13.3 mg/mg Normal [facility] Comment on above: Performed By: #### C VDAGA #### [facility] [address] [place] [address] Dr. Amber Fairbanks SED RATE [facility] 2021 SED RATE 27 mm/hr Critically high <=20 [facility] Comment on above: Performed By: #### S EDR #### [facility] [address] [place] [address] Dr. Amber Fairbanks US PORSHA DOP LEG [...] by: CAROLINA Ewing: 2022-05-30 10:21 Normal [facility] Covid-19 PCR (CVDTBH)on 05-14 SARS-CoV-2 (COVID-19) RNA MARIZOL+probe Ql (Unsp spec) Not detected Normal NOT DETECTED [facility] Comment on above: Result Comment: When [...] for this test is supported by the [place] of Health and Human Service's declaration that [...] used). Performed By: #### C VDAGA #### [facility] [address] [place] [address] Dr. Amber Fairbanks ASYMPTOMATIC COVID-19 ANTIGE Non 04-23-2022 EUA Statement SEE BELOW Normal [facility] Comment on above: Result Comment: This [...] sooner. Performed By: #### C VDAGA #### [facility] [address] [place] [address] Dr. Amber Fairbanks SARS-CoV-2 (COVID-19) RNA MARIZOL+probe Ql (Unsp spec) Positive Critically abnormal NEGATIVE [facility] Comment on above: Result Comment: SARS -CoV-2 antigen present; does not rule out coinfection with other pathogens. Performed By: #### C VDAGA #### [facility] [address] [place] [address] Dr. Amber Fairbanks Covid-19 PCR (CVDTBH)on SARS-CoV-2 (COVID-19) RNA MARIZOL+probe Ql (Unsp spec) Detected Critically abnormal NOT DETECTED [facility] Comment on above: Result Comment: This test is not yet approved or cleared by the [place] FDA. When there are no FDA-approved or cleared tests available, and other criteria are met, FDA can make tests available under an emergency access mechanism called an Emergency Use Authorization (EUA). The EUA for this test is supported by the [place] of Health and Human Service's declaration that [...] used). Performed By: #### C VDTBH #### [facility] [address] [place] [address] Dr. Amber Fairbanks Covid-19 PCR (CVDTBH)on SARS-CoV-2 (COVID-19) RNA MARIZOL+probe Ql (Unsp spec) Not detected Normal NOT DETECTED [facility] Comment on above: Result Comment: When [...] for this test is supported by the [place] of Health and Human Service's declaration that [...] longer be used). Performed By: #### C [facility] #### [facility] [address] [place], [place] [address] Dr. Amber Fairbanks Provider Letteron 01-31-2022 Provider Letter January 31, 2022 DEMETRIA BURKS [address] [place] [phone] DEMETRIA BURKS 1985 Dear Demetria Brenner , We have been trying to reach you with no success. It is important that you return our call regarding your referral from Dr. Beckford upon receiving this letter. Also, at the time of your call, please provide us with your current information. Thank you for your prompt attention to this matter. Sincerely, General Surgery [phone] [facility] Encounters Encounter Date Encounter Type Care Provider [...] Facility:[facility] Payers Date Payer Category Payer Unknown [id number] 1985 Unknown [id number] 2.16.84 [id number] 1985 Unknown [id number] 2.16.84 [id number] 1985 Unknown [id number] 2.16.84 [id number] 1985 Unknown [id number] 2.16.84 [id number] 1985 Unknown [id number] 2.16.84 [id number] 1985 Unknown [id number] 2.16.84 [id number] 1985 Unknown [id number] 2.16.84 [id number] 1985 Unknown [id number] 2.16.84 [id number] 1959 Unknown [id number] Summary Purpose Family History No Family History Records FoundNo Family History Records FoundNo Family History Records Found Advance Directives No Advanced Directives Records FoundNo Advanced Directives Records FoundNo Advanced Directives Records Found Additional Source Comments INFORMATION SOURCE (unrecogn ized section and content) DATE CREATED AUTHOR 02/02/2022 [facility] DATE CREATED AUTHOR AUTHOR'S ORGANIZ ATION 02/10/2023 [facility] DATE CREATED AUTHOR AUTHOR'S ORGANIZ ATION 01/07/2024 [facility] FOR RECORDS PERTAINING TO PATIENTS WHO ARE [...] BE BASED ON THE PRIMARY CLINICAL RECORDS. [facility] [employer] [facility]. provides no warranty or guarantee of the accuracy or completeness of information in this document.
== END 2024-01-24 07:52 | disposition home or self-care (01) ==
LOC: MRI 07:51
PROVIDERS: Visit Provider Family Medicine
DX: G43.909 Migraine, unspecified, not intractable, without status migrainosus (principal)
CPT/HCPCS: 70551

== ENCOUNTER 2024-03-02 22:23 | Outpatient (REF) | payer BC, SELFPAY ==
--- OUTSIDE RECORDS SUMMARY | 2024-03-02 22:28 | XMS_ITS | CCD ---
Author Organization 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 Performed By: #### C MARAL #### [facility] [address] [place] [address] Dr. Amber Fairbanks SARS-CoV-2 (COVID-19) RNA MARIZOL+probe Ql (Unsp spec) Positive Abnormal NEGATIVE [facility] Comment on above: Performed By: #### C KRISTYS #### [facility] [address] [place] [address] Dr. Amber Fairbanks [facility]-13 SARS-CoV-2 (COVID-19) RNA MARIZOL+probe Ql (Unsp spec) Not detected Normal NOT DETECTED [facility] Comment on above: Result Comment: When [...] for this test is supported by the Air Shovel Operator of Health and Human Service's declaration that [...] used). Performed By: #### C VDTBH #### [facility] [address] [place] [address] Dr. Amber Fairbanks GROUP A STREP CULTUREon 09-13 S. pyogenes Ag Ql (Unsp spec) Culture Observations: NEGATIVE FOR GROUP A STREPTOCOCCUS. Normal [facility] Comment on above: Performed By: #### C VDAGA #### [facility] [address] [place] [address] Dr. Amber Fairbanks INFLUENZA A AND B AGon 09-27 INFLUENZA A AG Negative Normal NEGATIVE SEE COMMENT [facility] Comment on above: Performed By: #### I NFLUAB #### [facility] [address] [place] [address] Dr. Amber Fairbanks INFLUENZA B AG Negative Normal NEGATIVE SEE COMMENT [facility] Comment on above: Performed By: #### I NFLUAB #### [facility] [address] [place] [address] Dr. Amber Fairbanks INTERNAL CONTROLS Within Normal Limits Normal Within Normal Limits [facility] Comment on above: Performed By: #### I NFLUAB #### [facility] [address] [place] [address] Dr. Amber Fairbanks STREPT SCREENon 09-27-2022 STREP SCREEN A Negative Normal NEGATIVE [facility] Comment on above: Performed By: #### C VDAGA #### [facility] [address] [place] [address] Dr. Amber Fairbanks CBC AUTO DIFFon 05-30-2022 BASO # 0.0 103/ul Normal 0.0-0.1 [facility] Comment on above: Performed By: #### C BC #### [facility] [address] [place] [address] Dr. Amber Fairbanks Basophils/100 WBC (Bld) 0.3 % Normal 0.2-2.0 [facility] Comment on above: Performed By: #### C BC #### [facility] [address] [place] [address] Dr. Amber Fairbanks EO # 0.0 103/ul Normal 0.0-0.7 [facility] Comment on above: Performed By: #### C BC #### [facility] [address] [place] [address] Dr. Amber Fairbanks Eosinophils/100 WBC (Bld) 0.3 % Critically low 0.9-7.0 [facility] Comment on above: Performed By: #### C BC #### [facility] [address] [place] [address] Dr. Amber Fairbanks Erythrocyte distribution width (RBC) [Ratio] 12.8 % Normal 11.0-15.0 [facility] Comment on above: Performed By: #### C BC #### [facility] [address] [place] [address] Dr. Amber Fairbanks Hematocrit (Bld) [Volume fraction] 38.5 % Normal 36.0-48.0 [facility] Comment on above: Performed By: #### C BC #### [facility] [address] [place] [address] Dr. Amber Fairbanks Hemoglobin (Bld) [Mass/Vol] 12.9 g/dL Normal 12.0-16.0 [facility] Comment on above: Performed By: #### C BC #### [facility] [address] [place] [address] Dr. Amber Fairbanks IG # 0.00 10e3/ul Normal 0.00-0.03 [facility] Comment on above: Performed By: #### C BC #### [facility] [address] [place] [address] Dr. Amber Fairbanks IG % 0.0 % Normal 0.0-0.5 [facility] Comment on above: Performed By: #### C BC #### [facility] [address] [place] [address] Dr. Amber Fairbanks LYMPH # 1.1 103/ul Critically low 1.2-3.[address] [facility] Comment on above: Performed By: #### C BC #### [facility] [address] [place] [address] Dr. Amber Fairbanks Lymphocytes/100 WBC (Bld) 27.2 % Normal 20.5-60.0 [facility] Comment on above: Performed By: #### C BC #### [facility] [address] [place] [address] Dr. Amber Fairbanks MANUAL DIFF REQ NO Normal [facility] Comment on above: Performed By: #### C BC #### [facility] [address] [place] [address] Dr. Amber Fairbanks MCH (RBC) [Entitic mass] 29.1 pg Normal 26.7-34.0 [facility] Comment on above: Performed By: #### C BC #### [facility] [address] [place] [address] Dr. Amber Fairbanks MCHC (RBC) [Mass/Vol] 33.5 g/dL Normal 29.9-35.2 [facility] Comment on above: Performed By: #### C BC #### [facility] [address] [place] [address] Dr. Amber Fairbanks MCV (RBC) [Entitic vol] 86.7 fL Normal 81.0-99.0 [facility] Comment on above: Performed By: #### C BC #### [facility] [address] [place] [address] Dr. Amber Fairbanks MONO # 0.5 103/ul Normal 0.3-0.8 [facility] Comment on above: Performed By: #### C BC #### [facility] [address] [place] [address] Dr. Amber Fairbanks Monocytes/100 WBC (Bld) 13.5 % Critically high 1.7-12.0 [facility] Comment on above: Performed By: #### C BC #### [facility] [address] [place] [address] Dr. Amber Fairbanks NEUT # 2.3 103/ul Normal 1.4-6.5 [facility] Comment on above: Performed By: #### C BC #### [facility] [address] [place] [address] Dr. Amber Fairbanks Neutrophils/100 WBC (Bld) 58.7 % Normal 43.0-75.0 [facility] Comment on above: Performed By: #### C BC #### [facility] [address] [place] [address] Dr. Amber Fairbanks Platelet mean volume (Bld) [Entitic vol] 10.5 fL Normal 9.5-13.5 [facility] Comment on above: Performed By: #### C BC #### [facility] [address] [place] [address] Dr. Amber Fairbanks PLT 241 103/ul Normal 150-450 [facility] Comment on above: Performed By: #### C BC #### [facility] [address] [place] [address] Dr. Amber Fairbanks RBC 4.44 106/ul Normal 4.20-5.40 [facility] Comment on above: Performed By: #### C BC #### [facility] [address] [place] [address] Dr. Amber Fairbanks WBC 3.9 103/ul Critically low 4.0-11.0 [facility] Comment on above: Performed By: #### C BC #### [facility] [address] [place], [place] [address] Dr. Amber Fairbanks CPKon 05-30-2022 CK [Catalytic activity/Vol] 178 U/L Normal 26-192 [facility] Comment on above: Performed By: #### C MP, CK #### [facility] [address] [place], [place] [address] Dr. Amber Fairbanks Covid-19 PCR (CVDTB)on 05-14 SARS-CoV-2 (COVID-19) RNA MARIZOL+probe Ql (Unsp spec) Not detected Normal NOT DETECTED [facility] Comment on above: Result Comment: This test is not yet approved or cleared by the [place] FDA. When there are no FDA-approved or cleared tests available, and other criteria are met, FDA can make tests available under an emergency access mechanism called an Emergency Use Authorization (EUA). The EUA for this test is supported by the Western of Health and Human Service's (HHS's) declaration [...] SARS-CoV-2. Performed By: #### C VDTBH #### [facility] [address], [place] [address] Dr. Amber Fairbanks INFLUENZA A AND B AGon 05-30 INFLUENZA A AG Negative Normal NEGATIVE SEE COMMENT [facility] Comment on above: Performed By: #### C VDAGA #### [facility] [address] [place], [place] [address] Dr. Amber Fairbanks INFLUENZA B AG Negative Normal NEGATIVE SEE COMMENT [facility] Comment on above: Performed By: #### C VDAGA #### [facility] [address] [place] [address] Dr. Amber Fairbanks INTERNAL CONTROLS Within Normal Limits Normal Within Normal Limits [facility] Comment on above: Performed By: #### C VDAGA #### [facility] [address] [place] [address] Dr. Amber Fairbanks MONOon 05-30-2022 Monocytes (Bld) [#/Vol] Negative Normal NEGATIVE [facility] Comment on above: Performed By: #### C VDAGA #### [facility] [address] [place] [address] Dr. Amber Fairbanks PROF 14(COMP METB)on 022 Albumin [Mass/Vol] 3.7 g/dL Normal 3.4-5.0 [facility] Comment on above: Performed By: #### C VDAGA #### [facility] [address] [place] [address] Dr. Amber Fairbanks Albumin/Globulin [Mass ratio] 0.8 {ratio} Normal [facility] Comment on above: Performed By: #### C VDAGA #### [facility] [address] [place] [address] Dr. Amber Fairbanks ALP [Catalytic activity/Vol] 72 U/L Normal 46-116 [facility] Comment on above: Performed By: #### C VDAGA #### [facility] [address] [place] [address] Dr. Amber Fairbanks ALT [Catalytic activity/Vol] 20 U/L Normal 14-59 [facility] Comment on above: Performed By: #### C VDAGA #### [facility] [address] [place] [address] Dr. Amber Fairbanks Anion gap [Moles/Vol] 14.7 mmol/L Normal [facility] Comment on above: Performed By: #### C VDAGA #### [facility] [address] [place] [address] Dr. Amber Fairbanks AST [Catalytic activity/Vol] 26 U/L Normal 15-37 [facility] Comment on above: Performed By: #### C VDAGA #### [facility] [address] [place] [address] Dr. Amber Fairbanks Bilirubin [Mass/Vol] 0.5 mg/dL Normal 0.2-1.0 [facility] Comment on above: Performed By: #### C VDAGA #### [facility] [address] [place] [address] Dr. Amber Fairbanks Calcium [Mass/Vol] 8.8 mg/dL Normal 8.5-10.1 [facility] Comment on above: Performed By: #### C VDAGA #### [facility] [address] [address] [address] Amber Fairbanks Chloride [Moles/Vol] 101 mmol/L Normal 98-107 [facility] Comment on above: Performed By: #### C VDAGA #### [facility] [address] [place] [address] Dr. Amber Fairbanks CO2 [Moles/Vol] 24.9 mmol/L Normal 21.0-32.[address] [facility] Comment on above: Performed By: #### C VDAGA #### [facility] [address] [place] [address] Dr. Amber Fairbanks Creatinine [Mass/Vol] 0.83 mg/dL Normal 0.55-1.02 [facility] Comment on above: Performed By: #### C VDAGA #### [facility] [address] [place] [address] Dr. Amber Fairbanks EGFR-AF [place]IZ[place] >60 Normal >=60 [facility] Comment on above: Performed By: #### C VDAGA #### [facility] [address] [place] [address] Dr. Amber Fairbanks EGFR-NON AF [place]IZ[place] >60 Normal >=60 [facility] Comment on above: Performed By: #### C VDAGA #### [facility] [address] [place] [address] Dr. Amber Fairbanks Globulin (S) [Mass/Vol] 4.4 g/dL Normal [facility] Comment on above: Performed By: #### C VDAGA #### [facility] [address] [place] [address] Dr. Amber Fairbanks Glucose [Mass/Vol] 88 mg/dL Normal 74-106 [facility] Comment on above: Performed By: #### C VDAGA #### [facility] [address] [address] [address] Amber Fairbanks Potassium [Moles/Vol] 3.6 mmol/L Normal 3.5-5.1 [facility] Comment on above: Performed By: #### C VDAGA #### [facility] [address] [place] [address] Dr. Amber Fairbanks Protein [Mass/Vol] 8.1 g/dL Normal 6.4-8.2 [facility] Comment on above: Performed By: #### C VDAGA #### [facility] [address] [place] [address] Dr. Amber Fairbanks Sodium [Moles/Vol] 137 mmol/L Normal 136-145 [facility] Comment on above: Performed By: #### C VDAGA #### [facility] [address] [place] [address] Dr. Amber Fairbanks Urea nitrogen [Mass/Vol] 11.0 mg/dL Normal 7.0-18.0 [facility] Comment on above: Performed By: #### C VDAGA #### [facility] [address] [place] [address] Dr. Amber Fairbanks Urea nitrogen/Creatinin e [Mass ratio] 13.3 mg/mg Normal [facility] Comment on above: Performed By: #### C VDAGA #### [facility] [address] [place] [address] Dr. Amber Fairbanks SED RATE WESTERGRENon 2021 SED RATE 27 mm/hr Critically high <=20 [facility] Comment on above: Performed By: #### S EDR #### [facility] [address] [place] [address] Dr. Amber Fairbanks US PORSHA DOP LEG [...] left lower extremity. Electronically authenticated by: CAROLINA CAMPOS Date: 2022-05-30 10:21 Normal [facility] Covid-19 PCR (CVDTB)on 05-14 SARS-CoV-2 (COVID-19) RNA MARIZOL+probe Ql (Unsp spec) Not detected Normal NOT DETECTED [facility] Comment on above: Result Comment: When [...] for this test is supported by the Western of Health and Human Service's declaration that [...] used). Performed By: #### C VDAGA #### [facility] [address] [place] [address] Dr. Amber Fairbanks ASYMPTOMATIC COVID-19 ANTIGE Non 04-23-2022 EUA Statement SEE BELOW Normal [facility] Comment on above: Result Comment: This test [...] sooner. Performed By: #### C VDAGA #### [facility] [address] [place] [address] [id number] [address] Amber Fairbanks SARS-CoV-2 (COVID-19) RNA MARIZOL+probe Ql (Unsp spec) Positive Critically abnormal NEGATIVE [facility] Comment on above: Result Comment: SARS -CoV-2 antigen present; does not rule out coinfection with other pathogens. Performed By: #### C VDAGA #### [facility] [address] [address] [address] Amber Fairbanks Covid-19 PCR (CVDTBH)on SARS-CoV-2 (COVID-19) RNA MARIZOL+probe Ql (Unsp spec) Detected Critically abnormal NOT DETECTED [facility] Comment on above: Result Comment: This test is not yet approved or cleared by the [place] FDA. When there are no FDA-approved or cleared tests available, and other criteria are met, FDA can make tests available under an emergency access mechanism called an Emergency Use Authorization (EUA). The EUA for this test is supported by the Western of Health and Human Service's declaration that [...] used). Performed By: #### C VDTBH #### [facility] [address] [place] [address] [id number] [address] Amber Fairbanks Covid-19 PCR (CVDTBH)on SARS-CoV-2 (COVID-19) RNA MARIZOL+probe Ql (Unsp spec) Not detected Normal NOT DETECTED [facility] Comment on above: Result Comment: When [...] for this test is supported by the Western of Health and Human Service's declaration that [...] longer be used). Performed By: #### C [facility] #### [facility] [address] [place] [address] Dr. Amber Fairbanks Provider Letteron 01-31-2022 Provider Letter January 31, 2022 DEMETRIA BURKS [address] [place] [phone] DEMETRIA BURKS 1985 Dear Demetria Brenner , We have been trying to reach you with no success. It is important that you return our call regarding your referral from Dr. Beckford upon receiving this letter. Also, at the time of your call, please provide us with your current information. Thank you for your prompt attention to this matter. Sincerely, General Surgery [phone] [facility] Encounters Encounter Date Encounter Type Care Provider Facility Start: 02-11-2024 End: 02-11-2024 ambulatory CAROLINA SOTO Not Available Start: 02-11-2024 End: 02-11-2024 ambulatory CAROLINA A RUSHER Not Available Start: 01-17-2024 End: 01-17-2024 ambulatory CAROLINA A RUSHER Not Available Start: 01-17-2024 End: 01-17-2024 ambulatory CAROLINA Wild RUSHER Not Available Start: 01-06-2024 End: 01-06-2024 ambulatory JOVANY OCONNOR Not Available Start: 02-07-2023 End: 02-07-[address] DANO BECKFORD . Facility:[facility] Start: 09-27-2022 End: 09-27-[address] DANO BECKFORD . Facility:[facility] Start: 05-30-2022 End: 05-31-[address] DANO BECKFORD . Facility:[facility] Start: 05-28-2022 End: 05-28-2022 ambulatory NONE LISTED REQUEST Facility:[facility] Start: 04-23-2022 End: 04-23-2022 ambulatory NONE LISTED REQUEST Facility:[facility] Start: 04-17-2022 End: 04-17-2022 ambulatory SEB CHRISTIN Facility:[facility] Start: 04-13-2022 End: 04-13-[address] DANO BECKFORD . Facility:[facility] Payers Date Payer Category Payer Unknown [id number] 1985 Unknown [id number] 2.16.84 [id number] 1985 Unknown [id number] 2.16.84 [id number] 1985 Unknown [id number] 2.16.84 [id number] 1985 Unknown [id number] 2.16.84 [id number] 1985 Unknown [id number] 2.16.84 [id number] 1985 Unknown [id number] 2.16.84 [id number] 1985 Unknown [id number] 2.16.84 [id number] 1985 Unknown [id number] 2.16.84 0.1.160664.3.579.2.1259 1985 Unknown [id number] 2.16.84 0.1.507140.3.579.2.1259 1985 Unknown [id number] 2.16.84 0.1.409494.3.579.2.1259 1985 Unknown [id number] 2.16.84 0.1.434894.3.579.2.1259 1985 Unknown [id number] 2.16.84 [id number] 1959 Unknown [id number] Summary Purpose Family History No Family History Records FoundNo Family History Records FoundNo Family History Records Found Advance Directives No Advanced Directives Records FoundNo Advanced Directives Records FoundNo Advanced Directives Records Found Additional Source Comments INFORMATION SOURCE (unrecogn ized section and content) DATE CREATED AUTHOR 02/02/2022 [place] DATE CREATED AUTHOR AUTHOR'S ORGANIZ ATION 02/10/2023 [facility] DATE CREATED AUTHOR AUTHOR'S ORGANIZ ATION 02/12/2024 [facility] FOR RECORDS PERTAINING TO PATIENTS [...] BE BASED ON THE PRIMARY CLINICAL RECORDS. [facility] [employer] [facility]. provides no warranty or guarantee of the accuracy or completeness of information in this document.
[2024-03-06 14:10] LABS: Age Gdln ACOG Testing Note (.); HPV Aptima Negative (Negative); IGP, Aptima HPV, rfx 16/18,45 Note (.)
== END 2024-03-02 22:24 | disposition home or self-care (01) ==
LOC: LAB 22:23
PROVIDERS: Visit Provider Obstetrics & Gynecology
DX: Z01.419 Encounter for gynecological examination (general) (routine) without abnormal findings (principal)
CPT/HCPCS: 87624; G0145

== ENCOUNTER 2024-11-30 20:15 | Outpatient (REF) | payer BC, SELFPAY ==
--- OUTSIDE RECORDS SUMMARY | 2024-11-30 20:19 | XMS_ITS | CCD ---
Author Organization [facility] Providers Care Lease Administration Analyst Name Role Phone SEB WALLER Admitting [...] HOY ., DR MATSON Consulting Unavailable REQUEST, DR NONE LISTED Primary Care Unavaila ble HOY ., DR MATSON Admitting Unavailable HOY ., DR MATSON Attending Unavailable HOY ., DR MATSON Consulting Unavailable REQUEST, NONE LISTED Primary Care Unavaila ble HOY ., DR MATSON Attending Unavailable HOY ., DR MATSON Consulting Unavailable HOY ., DR MATSON Admitting Unavailable REQUEST, NONE LISTED Primary Care Unavaila ble JOVANY BARRERA Attending Unavailable RUSHERCAROLINA Attending Unavailable RUSCAROLINA LANZA Referring Unavailable RUSCAROLINA LANZA Attending Unavailable CAROLINA SOTO Referring Unavailable JOVANY BARRERA Attending Unavailable RUSHER, CAROLINA Wild Attending Unavailable LOUHERCAROLINA Referring Unavailable MURRAY RODRIGUEZ Attending Unavailable MURRAY RODRIGUEZ Referring Unavailable MURRAY RODRIGUEZ Referring Unavailable JR. CALDWELL GEORGE C Attending Unavaila kailyn Rodríguez MD, Dano Goel Primary Care Provider [phone] Medications Current Medications Medication Drug Class(es) Dates Sig (Normalized) Sig (Original) 24 hr metFORMIN hydrochloride 500 mg extended release oral tablet (6 sources) Biguanide Start: End: take 1 tablet by mouth every twenty-four hours at mealtime metFORMIN XR (Glucophage-XR) 500 MG 24 hr tablet Indications: Insulin resistance Take 1 tablet (500 mg) by mouth in the evening. Take with meals Do not crush, chew, or split. 30 tablet 11 01/14/2024 01/08/2025 Active methylPREDNISolone (2 sources) Corticosteroid Start: 4 methylPREDNISolone (Medrol Dospak) 4 MG tablets Indications: Internal derangement of right knee Follow schedule on package instructions 21 tablet 07/06/2024 Active SUMAtriptan 100 mg oral tablet (6 sources) Serotonin-1b and Serotonin-1d Receptor Agonist Start: 4 Imitrex 100 MG tablet every 12 (twelve) hours 01/09/2024 Active Completed/Discontinued Medications Medication Drug Class(es) Dates Sig (Normalized) Sig (Original) diclofenac sodium 75 mg delayed release oral tablet (6 sources) Nonsteroidal Anti-inflammatory Drug Start: 01-09-2024 End: 07-06-2024 diclofenac (Voltaren) 75 MG EC tablet every 12 (twelve) hours 01/09/2024 07/06/2024 Discontinued (Therapy completed) predniSONE 10 mg oral tablet (12 sources) Start: 01-17-2024 End: 07-06-2024 predniSONE (Deltasone) 10 MG tablet Indications: Sprain of anterior talofibular ligament of right ankle, sequela , Transient synovitis, right ankle and foot , Peroneal tendonitis, right , Pain and swelling of right ankle 1 tablet twice daily x 7 days; followed by 1 tablet daily as directed until complete 21 tablet 03/06/2024 07/06/2024 Discontinued (Therapy completed) Problems Active Problems Problem Classification Problem Date Documented Da te Episodic/Chronic Joint disorders and dislocations; trauma-related (4 sources) Derangement of right knee; Translations: [Unspecified internal derangement of right knee] 06-08-2024 Chronic Other upper respiratory disease (1 source) Nasal [...] Translations: [FEVER UNSPECIFIED] Onset: 05-30-2022 Episodic Other non-traumatic joint disorders (2 sources) Pain in right knee; Translations: [Pain in joint, lower leg] 06-04-2024 Episodic Other upper respiratory infections (1 source) Acute recurrent frontal sinusitis; Translations: [ACUTE RECURRENT FRONTAL SINUSITIS] Onset: 05-29-2022 Episodic Residual codes; unclassified (1 source) Localized edema; Translations: [LOCALIZED EDEMA] Onset: 05-31-2022 Episodic Unclassified (1 source) CONTACT W/AND (SUSP) EXPOS COVID-19; Translations: [CONTACT W/AND (SUSP) EXPOS COVID-19] Onset: 02-07-2023 Results Test Name Value Interpretation Reference Range Facility MR KNEE RIGHT WO IV CONTRAST on 06-12-2024 MR KNEE RIGHT WO IV CONTRAST EXAMINATION: MR KNEE RIGHT WO IV CONTRAST HISTORY: injury fall in December. Medial knee pain. Denies prior right knee surgery. Concern for medial meniscal tear. TECHNIQUE: Routine non-contrast MRI of the knee, RIGHT COMPARISON: Radiographs 06/08/2024. RESULT: MENISCI: Medial Meniscus: Intact Lateral Meniscus: Intact LIGAMENTS: ACL, PCL, MCL, and LCL complex intact. CARTILAGE: Appears within normal limits. TENDONS: Distal quadriceps intact. Patellar tendon intact. Popliteus intact. BONES AND MARROW: No evidence of fracture or bone marrow replacing process. Small bone island lateral femoral condyle. MUSCLES: Muscle bulk and signal intensity are normal. JOINT FLUID AND SYNOVIUM: No joint effusion. No synovitis. No Daniels's cyst. OTHER: Subcutaneous edema/bursitis anteriorly. IMPRESSION: Intact menisci and ligaments. ELECTRONICALLY SIGNED BY: Dennis Urrutia MD Normal Not Available Comment on above: Order Comment: MRI R T knee w/o at [facility]. Orbits if needed. Eval for medial meniscus tear. XR Knee - right 1 or 2 Views on 06-08-2024 Imaging Result: AP and lateral of right knee showed excellent preservation of joint space heights there was no flattening of the articular surfaces tricompartmentally. There was no evidence of marginal osteophytic formation. Overall alignment appeared to be normal. There was no evidence of fracture or dislocation. Bony structures in view showed excellent ossification. Impression: No acute bony process, right knee [facility] Radiology Study observation (narrative) [facility] XR Knee - right 1 or 2 Views Ordered By: Jr. Caldwell on 06-08-2024 [facility] [employer] Work Phone: SYMPTOMATIC COVID-19 ANTIGEN on 02-07-2023 EUA Statement SEE BELOW Normal [facility] Comment on above: Result Comment: This [...] sooner. Performed By: #### C VDAGS #### [facility] [address] [address] [address] Amber Fairbanks SARS-CoV-2 (COVID-19) RNA MARIZOL+probe Ql (Unsp spec) Positive Abnormal NEGATIVE [facility] Comment on above: Performed By: #### C VDAGS #### [facility] [id number] Amber Fairbanks [facility]13 SARS-CoV-2 (COVID-19) RNA MARIZOL+probe Ql (Unsp spec) Not detected Normal NOT DETECTED [facility] Comment on above: Result Comment: When [...] for this test is supported by the [place] of Health and Human Service's declaration that [...] used). Performed By: #### C VDTBH #### [facility] [address] [place] [address] Dr. Amber Fairbanks GROUP A STREP CULTUREon 09-13 S. pyogenes Ag Ql (Unsp spec) Culture Observations: NEGATIVE FOR GROUP A STREPTOCOCCUS. Normal [facility] Comment on above: Performed By: #### C VDAGA #### [facility] [address] [place] [address] Dr. Amber Fairbanks INFLUENZA A AND B AGon 09-27 INFLUENZA A AG Negative Normal NEGATIVE SEE COMMENT [facility] Comment on above: Performed By: #### I NFLUAB #### [facility] [address] [place] [address] Dr. Amber Fairbanks INFLUENZA B AG Negative Normal NEGATIVE SEE COMMENT [facility] Comment on above: Performed By: #### I NFLUAB #### [facility] [address] [place] [address] Dr. Amber Fairbanks INTERNAL CONTROLS Within Normal Limits Normal Within Normal Limits [facility] Comment on above: Performed By: #### I NFLUAB #### [facility] [address] [place] [address] Dr. Amber Fairbanks STREPT SCREENon 09-27-2022 STREP SCREEN A Negative Normal NEGATIVE [facility] Comment on above: Performed By: #### C VDAGA #### [facility] [address] [place] [address] Dr. Amber Fairbanks CBC AUTO DIFFon 05-30-2022 BASO # 0.0 103/ul Normal 0.0-0.1 [facility] Comment on above: Performed By: #### C BC #### [facility] [address] [place] [address] Dr. Amber Fairbanks Basophils/100 WBC (Bld) 0.3 % Normal 0.2-2.0 [facility] Comment on above: Performed By: #### C BC #### [facility] [address] [place] [address] Dr. Amber Fairbanks EO # 0.0 103/ul Normal 0.0-0.7 [facility] Comment on above: Performed By: #### C BC #### [facility] [address] [place] [address] Dr. Amber Fairbanks Eosinophils/100 WBC (Bld) 0.3 % Critically low 0.9-7.0 [facility] Comment on above: Performed By: #### C BC #### [facility] [address] [place] [address] Dr. Amber Fairbanks Erythrocyte distribution width (RBC) [Ratio] 12.8 % Normal 11.0-15.0 [facility] Comment on above: Performed By: #### C BC #### [facility] [address] [place] [address] Dr. Amber Fairbanks Hematocrit (Bld) [Volume fraction] 38.5 % Normal 36.0-48.0 [facility] Comment on above: Performed By: #### C BC #### [facility] [address] [place] [address] Dr. Amber Fairbanks Hemoglobin (Bld) [Mass/Vol] 12.9 g/dL Normal 12.0-16.0 [facility] Comment on above: Performed By: #### C BC #### [facility] [address] [place] [address] Dr. Amber Fairbnaks IG # 0.00 10e3/ul Normal 0.00-0.03 [facility] Comment on above: Performed By: #### C BC #### [facility] [address] [place] [address] Dr. Amber Fairbanks IG % 0.0 % Normal 0.0-0.5 [facility] Comment on above: Performed By: #### C BC #### [facility] [address] [place] [address] Dr. Amber Fairbanks LYMPH # 1.1 103/ul Critically low 1.2-3.8 [facility] Comment on above: Performed By: #### C BC #### [facility] [address] [place] [address] Dr. Amber Fairbanks Lymphocytes/100 WBC (Bld) 27.2 % Normal 20.5-60.0 [facility] Comment on above: Performed By: #### C BC #### [facility] [address] [place] [address] Dr. Amber Fairbanks MANUAL DIFF REQ NO Normal [facility] Comment on above: Performed By: #### C BC #### [facility] [address] [place] [address] Dr. Amber Fairbanks MCH (RBC) [Entitic mass] 29.1 pg Normal 26.7-34.0 [facility] Comment on above: Performed By: #### C BC #### [facility] [address] [place] [address] Dr. Amber Fairbanks MCHC (RBC) [Mass/Vol] 33.5 g/dL Normal 29.9-35.2 [facility] Comment on above: Performed By: #### C BC #### [facility] [address] [place] [address] Dr. Amber Fairbanks MCV (RBC) [Entitic vol] 86.7 fL Normal 81.0-99.0 [facility] Comment on above: Performed By: #### C BC #### [facility] [address] [place] [address] Dr. Amber Fairbanks MONO # 0.5 103/ul Normal 0.3-0.8 [facility] Comment on above: Performed By: #### C BC #### [facility] [address] [address] [address] Amber Fairbanks Monocytes/100 WBC (Bld) 13.5 % Critically high 1.7-12.0 [facility] Comment on above: Performed By: #### C BC #### [facility] [address] [address] [address] Amber Fairbanks NEUT # 2.3 103/ul Normal 1.4-6.5 [facility] Comment on above: Performed By: #### C BC #### [facility] [address] [place] [address] Dr. Amber Fairbanks Neutrophils/100 WBC (Bld) 58.7 % Normal 43.0-75.0 [facility] Comment on above: Performed By: #### C BC #### [facility] [address] [place] [address] Dr. Amber Fairbanks Platelet mean volume (Bld) [Entitic vol] 10.5 fL Normal 9.5-13.5 [facility] Comment on above: Performed By: #### C BC #### [facility] [address] [place] [address] Dr. Amber Fairbanks PLT 241 103/ul Normal 150-450 [facility] Comment on above: Performed By: #### C BC #### [facility] [address] [place] [address] Dr. Amber Fairbanks RBC 4.44 106/ul Normal 4.20-5.[address] [facility] Comment on above: Performed By: #### C BC #### [facility] [address] [place] [address] Dr. Amber Fairbanks WBC 3.9 103/ul Critically low 4.0-11.0 [facility] Comment on above: Performed By: #### C BC #### [facility] [address] [place] [address] Dr. Amber Fairbanks CPKon 05-30-2022 CK [Catalytic activity/Vol] 178 U/L Normal 26-192 [facility] Comment on above: Performed By: #### C MP, CK #### [facility] [address] [address] [address] Amber Fairbanks Covid-19 PCR ([facility])on 05-14 SARS-CoV-2 (COVID-19) RNA MARIZOL+probe Ql (Unsp spec) Not detected Normal NOT DETECTED [facility] Comment on above: Result Comment: This test is not yet approved or cleared by the [place] FDA. When there are no FDA-approved or cleared tests available, and other criteria are met, FDA can make tests available under an emergency access mechanism called an Emergency Use Authorization (EUA). The EUA for this test is supported by the [place] of Health and Human Service's (HHS's) declaration [...] SARS-CoV-2. Performed By: #### C VDTBH #### [facility] [address] [place] [address] Dr. Amber Fairbanks INFLUENZA A AND B AGon 05-30 INFLUENZA A AG Negative Normal NEGATIVE SEE COMMENT [facility] Comment on above: Performed By: #### C VDAGA #### [facility] [address] [place] [address] Dr. Amber Fairbanks INFLUENZA B AG Negative Normal NEGATIVE SEE COMMENT [facility] Comment on above: Performed By: #### C VDAGA #### [facility] [address] [place] [address] Dr. Amber Fairbanks INTERNAL CONTROLS Within Normal Limits Normal Within Normal Limits [facility] Comment on above: Performed By: #### C VDAGA #### [facility] [address] [place] [address] Dr. Amber Fairbanks MONOon 05-30-2022 Monocytes (Bld) [#/Vol] Negative Normal NEGATIVE [facility] Comment on above: Performed By: #### C VDAGA #### [facility] [address] [place] [address] Dr. Amber Fairbanks PROF 14(COMP METB)on 022 Albumin [Mass/Vol] 3.7 g/dL Normal 3.4-5.0 [facility] Comment on above: Performed By: #### C VDAGA #### [facility] [address] [place] [address] Dr. Amber Fairbanks Albumin/Globulin [Mass ratio] 0.8 {ratio} Normal [facility] Comment on above: Performed By: #### C VDAGA #### [facility] [address] [place] [address] Dr. Amber Fairbanks ALP [Catalytic activity/Vol] 72 U/L Normal 46-116 [facility] Comment on above: Performed By: #### C VDAGA #### [facility] [address] [place] [address] Dr. Amber Fairbanks ALT [Catalytic activity/Vol] 20 U/L Normal 14-59 [facility] Comment on above: Performed By: #### C VDAGA #### [facility] [address] [place] [address] Dr. Amber Fairbanks Anion gap [Moles/Vol] 14.7 mmol/L Normal [facility] Comment on above: Performed By: #### C VDAGA #### [facility] [address] [place] [address] Dr. Amber Fairbanks AST [Catalytic activity/Vol] 26 U/L Normal 15-37 [facility] Comment on above: Performed By: #### C VDAGA #### [facility] [address] [place] [address] Dr. Amber Fairbanks Bilirubin [Mass/Vol] 0.5 mg/dL Normal 0.2-1.0 [facility] Comment on above: Performed By: #### C VDAGA #### [facility] [address] [place] [address] Dr. Amber Fairbanks Calcium [Mass/Vol] 8.8 mg/dL Normal 8.5-10.1 [facility] Comment on above: Performed By: #### C VDAGA #### [facility] [address] [place] [address] Dr. Amber Fairbanks Chloride [Moles/Vol] 101 mmol/L Normal 98-[address] [facility] Comment on above: Performed By: #### C VDAGA #### [facility] [address] [address] [address] Amber Fairbanks CO2 [Moles/Vol] 24.9 mmol/L Normal 21.0-32.0 [facility] Comment on above: Performed By: #### C VDAGA #### [facility] [address] [place] [address] Dr. Amber Fairbanks Creatinine [Mass/Vol] 0.83 mg/dL Normal 0.55-1.02 [facility] Comment on above: Performed By: #### C VDAGA #### [facility] [address] [place] [address] Dr. Amber Fairbanks EGFR-AF CZECH >60 Normal >=60 [facility] Comment on above: Performed By: #### C VDAGA #### [facility] [address] [place] [address] Dr. Amber Fairbanks EGFR-NON AF CZECH >60 Normal >=[address] [facility] Comment on above: Performed By: #### C VDAGA #### [facility] [address] [place] [address] Dr. Amber Fairbanks Globulin (S) [Mass/Vol] 4.4 g/dL Normal [facility] Comment on above: Performed By: #### C VDAGA #### [facility] [address] [place] [address] Dr. Amber Fairbanks Glucose [Mass/Vol] 88 mg/dL Normal 74-106 [facility] Comment on above: Performed By: #### C VDAGA #### [facility] [address] [place] [address] Dr. Amber Fairbanks Potassium [Moles/Vol] 3.6 mmol/L Normal 3.5-5.1 [facility] Comment on above: Performed By: #### C VDAGA #### [facility] [address] [address] [address] Amber Fairbanks Protein [Mass/Vol] 8.1 g/dL Normal 6.4-8.2 [facility] Comment on above: Performed By: #### C VDAGA #### [facility] [address] [address] [address] Amber Fairbanks Sodium [Moles/Vol] 137 mmol/L Normal 136-145 [facility] Comment on above: Performed By: #### C VDAGA #### [facility] [address] [place] [address] Dr. Amber Fairbanks Urea nitrogen [Mass/Vol] 11.0 mg/dL Normal 7.0-18.0 [facility] Comment on above: Performed By: #### C VDAGA #### [facility] [address] [place] [address] Dr. Amber Fairbanks Urea nitrogen/Creatinin e [Mass ratio] 13.3 mg/mg Normal [facility] Comment on above: Performed By: #### C VDAGA #### [facility] [address] [place] [address] Dr. Amber Fairbanks SED RATE [facility] 2021 SED RATE 27 mm/hr Critically high <=20 [facility] Comment on above: Performed By: #### S EDR #### [facility] [address] [place] [address] Dr. Amber Fairbanks US PORSHA DOP LEG [...] by: CAROLINA CAMPOS Date: 2022-05-30 10:21 Normal [facility] Covid-19 PCR ([facility])on 05-14 SARS-CoV-2 (COVID-19) RNA MARIZOL+probe Ql (Unsp spec) Not detected Normal NOT DETECTED [facility] Comment on above: Result Comment: When [...] for this test is supported by the [place] of Health and Human Service's declaration that [...] used). Performed By: #### C VDAGA #### [facility] [address] [place] [address] Dr. Amber Fairbanks ASYMPTOMATIC COVID-19 ANTIGE Non 04-23-2022 EUA Statement SEE BELOW Normal [facility] Comment on above: Result Comment: This [...] sooner. Performed By: #### C VDAGA #### [facility] [address] [place] [address] Dr. Amber Fairbanks SARS-CoV-2 (COVID-19) RNA MARIZOL+probe Ql (Unsp spec) Positive Critically abnormal NEGATIVE [facility] Comment on above: Result Comment: SARS -CoV-2 antigen present; does not rule out coinfection with other pathogens. Performed By: #### C VDAGA #### [facility] [address] [address] [address] Amber Fairbanks Covid-19 PCR ([facility])on SARS-CoV-2 (COVID-19) RNA MRAIZOL+probe Ql (Unsp spec) Detected Critically abnormal NOT DETECTED [facility] Comment on above: Result Comment: This test is not yet approved or cleared by the [place] FDA. When there are no FDA-approved or cleared tests available, and other criteria are met, FDA can make tests available under an emergency access mechanism called an Emergency Use Authorization (EUA). The EUA for this test is supported by the [place] of Health and Human Service's declaration that [...] longer be used). Performed By: #### C VDTB #### [facility] [address] [address] [address] Amber Fairbanks Covid-19 PCR ([facility])on SARS-CoV-2 (COVID-19) RNA MARIZOL+probe Ql (Unsp spec) Not detected Normal NOT DETECTED [facility] Comment on above: Result Comment: When [...] for this test is supported by the [place] of Health and Human Service's declaration that [...] longer be used). Performed By: #### [facility] #### [facility] [address] [address] [address] Amber Fairbanks Provider Letteron 01-31-2022 Provider Letter January 31, 2022 MAG[address] [place] [address] MAGED ARCINIEGA 1985 Dear Maged Brenner , We have been trying to reach you with no success. It is important that you return our call regarding your referral from Dr. Rodríguez upon receiving this letter. Also, at the time of your call, please provide us with your current information. Thank you for your prompt attention to this matter. Sincerely, General Surgery [phone] [facility] Vital Signs Date Time Vital Sign Value Performing Clinician Faci lity 06-08-2024 14:19-0400 Body height 188 cm Murray Rodriguez NP Work Phone: [facility] 06-08-2024 14:19-0400 Body mass index (BMI) [Ratio] 35.44 kg/m2 Murray Rodriguez NP Work Phone: [facility] 06-08-2024 14:19-040 Body weight 125.19 kg Murray Rodriguez NP Work Phone: [facility] Healthcare Encounters Encounter Date Encounter Type Care Provider Facility Start: 07-06-2024 End: 07-06-2024 Teodoro Caldwell DO Work Phone: [facility] Start: 07-06-2024 End: 07-06-2024 Teodoro Caldwell DO Work Phone: [facility] Start: 07-06-2024 End: 07-06-2024 ambulatory MEG GORDON Not Available Start: 07-06-2024 End: 07-06-2024 Office outpatient visit 25 minutes JrGenoveva White Stepradha DO Work Phone: [facility] Comment on above: Internal derangement of right knee (Primary Dx) Start: 06-12-2024 End: 06-12-2024 ambulatory MURRAY RODRIGUEZ Not Available Start: 06-08-2024 End: 06-08-2024 ambulatory MURRAY RODRIGUEZ Not Available Start: 06-08-2024 End: 06-08-2024 Bamboo flowsheet Murray Rodriguez MANAGER [employer]ILITY Work Phone: [facility] Start: 06-08-2024 End: 06-08-2024 Bamboo Compass-EOSheet Murray Rodriguez MANAGER UTILITY Work Phone: [facility] Start: 06-08-2024 End: 06-08-2024 Office outpatient new 30 minutes Murray Rodriguez MANAGER UTILITY Work Phone: [facility] Comment on above: Internal derangement of right knee (Primary Dx); Right knee pain, unspecified chronicity Start: 03-06-2024 End: 03-06-2024 ambulatory CAROLINA A RUSHER Not Available Start: 03-06-2024 End: 03-06-2024 ambulatory CAROLINA A RUSHER Not Available Start: 03-02-2024 End: 03-02-2024 ambulatory JOVANY ELVIN Not Available Start: 02-11-2024 End: 02-11-2024 ambulatory CAROLINA A RUSHER Not Available Start: 02-11-2024 End: 02-11-2024 ambulatory CAROLINA A RUSHER Not Available Start: 01-17-2024 End: 01-17-2024 ambulatory CAROLINA A RUSHER Not Available Start: 01-17-2024 End: 01-17-2024 ambulatory CAROLINA A RUSHER Not Available Start: 01-06-2024 End: 01-06-2024 ambulatory JOVANY ELVIN Not Available Start: 02-07-2023 End: 02-07-[address] DANO RODRÍGUEZ . Facility:[facility] Start: 09-27-2022 End: 09-27-[address] DANO RODRÍGUEZ . Facility:[facility] Start: 05-30-2022 End: 05-31-[address] DANO RODRÍGUEZ . Facility:[facility] Start: 05-28-2022 End: 05-28-2022 ambulatory NONE LISTED REQUEST Facility:[facility] Start: 04-23-2022 End: 04-23-2022 ambulatory NONE LISTED REQUEST Facility: Start: 04-17-2022 End: 04-17-2022 ambulatory SEB CHRISTIN Facility:[facility] Start: 04-13-2022 End: 04-13-[address] DANO RODRÍGUEZ . Facility: Procedures Date Procedure Procedure Detail Performing Clinician Start: 06-08-2024 Radiologic examinati on knee 1/ views Murray Rodriguez NP Work Phone: Plan of Treatment Date Care Activity Detail Author Start: 03-09-2025 End: 03-09-2025 Patient encounter procedure 03/09/2025 8:30 AM EDT Office Visit [facility] [address] [place] [id number] Jovany Barrera, DO [address] [place] [address] [facility] Start: 06-08-2024 End: 06-08-2025 MR Knee - right WO contrast MR knee right wo IV contrast Imaging Routine Internal derangement of right knee Expected: 06/08/2024 (Approximate), Expires: 06/08/2025 [facility] Work Phone: Comment on above: Expected: 06/08/2024 (Approximate), Expires: 06/08/2025 Immunizations Immunization Date Immunization Notes Care Provider [facility] 05-04-2020 tetanus toxoid, redu janine diphtheria toxoid, and acellular pertussis vaccine, adsorbed Murray Rodriguez NP Work Phone: [facility] 04-02-2010 tetanus toxoid, redu janine diphtheria toxoid, and acellular pertussis vaccine, adsorbed Murray Rodriguez NP Work Phone: [facility] 08-19-2009 novel influenza-H1N1 -09, preservative-free, injectable Murray Rodriguez [employer]NAGER [employer] Work Phone: [facility] 07-30-2007 influenza virus vacc ine, whole virus Murray Rodriguez MANAGER [employer] Work Phone: [facility] Healthcare Payers Date Payer Category Payer Unknown BCBS BCBS [id number] 2022-Present [phone] [address] [place] [address] [id number] 2019 Unknown [id number] 1985 Unknown [id number] 2.16.840.1.289728.3.579.2.593 1985 Unknown [id number] 2.16.840.1.899094.3.579.2.593 1985 Unknown [id number] 2.16840.1.067483.3.579.2.593 1985 Unknown [id number] 2.16.840.1.067969.3.579.2.593 1985 Unknown [id number] 2.16.840.1.646776.3.579.2.593 1985 Unknown [id number] 2.16.840.1.570255.3.579.2.593 1985 Unknown [id number] 2.16.840.1.039909.3.579.2.593 1985 Unknown [id number] 2.16.840.1.805282.3.579.2.1259 1985 Unknown [id number] 2.16.840.1.916881.3.579.2.1259 1985 Unknown [id number] 2.16.840.1.216777.3.579.2.1259 1985 Unknown [id number] 2.16.840.1.569866.3.579.2.1259 1985 Unknown [id number] 2.16.840.1.755865.3.579.2.1259 1985 Unknown [id number] 2.16.840.1.780997.3.579.2.9 1985 Unknown [id number] 2.16.840.1.808656.3.579.2.9 1985 Unknown [id number] 2.16.840.1.832347.3.579.2.1258 1985 Unknown [id number] 2.16.840.1.535382.3.579.2.9 1985 Unknown [id number] 2.16.840.1.860100.3.579.2.1258 1985 Unknown [id number] 2.16.840.1.480523.3.579.2.9 1985 Unknown [id number] 2.16.840.1.357132.3.579.2.9 1959 Unknown [id number] Social History Date Type Detail Facility Start: 01-17-2024 Tobacco smoking stat [facility] Never smoked tobacco [facility] Start: 01-17-2024 Tobacco use and exposure Smoke less tobacco non-user [facility] Start: 06-08-2024 End: 07-06-2024 Alcoholic beverage intake Current drinker of alcohol (finding) [facility] Start: 06-08-2024 End: 07-06-2024 [facility] of [facility] Start: 06-08-2024 End: 07-06-2024 Tobacco use panel [facility] Start: 01-05-2024 Alcohol Comment caffeine: soda, coff ee [facility] Start: 1985 Sex assigned at Not on file [facility] History of Present illness Narrative 07-06-2024 Jr. Meg Caldwell DO - 07/06/2024 9:15 AM EDT Note Date & Type Note Facility 07-06-2024 History of Presen t illness Narrative Images from the original note were not included. HISTORY OF PRESENT ILLNESS: EST PT Maged Arciniega is an 39 y.o. @ female. EST PT WITH MURRAY- RECHECK RT KNEE PAIN 01/2024 FELL DOWN STAIRS- HERE FOR MRI RT KNEE RESULTS 06/12/24 EPIC XRAY CHANGE 06/08/24 MRI RT KNEE 06/12/24 PREDNISONE NO CORTISONE INJ NO PT NO PAIN MANAGEMENT PAIN MEDIAL KNEE- DENIES SWELLING- +INSTABILITY- DIFFICULTY SQUATTING- +WEAKNESS - SOME CLICKING- OCCASIONALLY WAKES HS- DOES NOT TRUST KNEE ALLERGIES: No Known Allergies HOME MEDICATIONS: Current Outpatient Medications Medication Instructions Imitrex 100 MG tablet Every 12 hours metFORMIN XR (GLUCOPHAGE-XR) 500 mg, Oral, Daily with evening meal, Do not crush, chew, or split. methylPREDNISolone (Medrol Dospak) 4 MG tablets Follow schedule on package instructions PHYSICAL EXAM: Knee Musculoskeletal Exam Gait Limp: right Inspection Right Erythema: none Effusion: mild Edema: mild Ecchymosis: none Deformity: none Alignment: normal Previous incision: no previous incision Palpation Right Increased warmth: none Masses: none Crepitus: none Tenderness: present Medial joint line: moderate Range of Motion Right Active extension: 0 Passive extension: 0 Active flexion: 130 Passive flexion: 130 Strength Right Extension: 5/5. Flexion: 5/5. Instability Right Varus stress grade: normal Valgus stress grade: normal Pivot shift: normal Anterior drawer: normal Posterior drawer: normal Quad active test: normal Diana: negative Neurovascular Right Sensation: sural, saphenous, tibial, superficial peroneal and deep peroneal Patella reflex: normal and 2/4 Dorsalis pedis: 2+ Posterior tibial: 2+ Capillary refill: brisk Special Signs Right Right knee special signs are normal. Vitals: There is no height or weight on file to calculate BMI. Tobacco Use: Low Risk (07/06/2024) Patient History Smoking Tobacco Use: Never Smokeless Tobacco Use: Never Passive Exposure: Not on file Alcohol Use: Not on file IMAGING: Procedures No orders of the defined types were placed in this encounter. ASSESSMENT: ICD-10-CM 1. Internal derangement of right knee M23.91 methylPREDNISolone (Medrol Dospak) 4 MG tablets PLAN: We have answered all the patients questions and explained the patients condition, decision making and plan including the risks and benefits associated with said plan in layman''s terms in a language the patient could understand easily. If patient''s symptoms significantly worsen and they cannot get a hold of us or their family physician, we have recommended that the patient proceed to the nearest emergency department (room). Dr. Caldwell obtained history and examined the patient, I am acting as scribe for Dr. Caldwell/lupis, PLAN: We have reviewed prior (R) knee xrays / MRI results ; read out as negative - I believe in a degree of medical certainty there is a hint of a medial meniscus tear. After examination of her right knee today are recommending a MDP to attempt to decrease the inflammation. We have discussed avoiding motions including, but not limited to : no high impact or deep squatting. We are recommending that she start gentle flexion / extension over the edge of a bed 25reps 4x/day. We have discussed her hEP and restrictions and will see her back in 3 weeks to reassess her right knee, if exam warrants we may recommend a (R) knee scope. Meg Caldwell D.O. documented in this encounter [facility] History of Present illness Narrative 06-08-2024 Murray Rodriguez NP - 06/08/2024 2:00 PM EDT Note Date & Type Note Facility 06-08-2024 History of Presen t illness Narrative Images from the original note were not included. NAME: Maged Arciniega : 1985 HISTORY OF PRESENT ILLNESS: Maged Arciniega is an 39 y.o. @ female. RT KNEE PAIN 01/2024 FELL DOWN STAIRS. HAD LT FOOT FX, WORE CAM BOOT. ALSO HAD RT ANKLE SPRAIN. XRAY TODAY CHANGE 06/08/24 PREDNISONE PAIN DEEP IN JOINT. CAN BE MORE MEDIAL. TAKING ADVIL PRN. USING ICE PRN. UNABLE TO SQUAT, LEG WILL SHAKE. DIFFICULTY WITH PROLONGED WB. DENIES N/T, SWELLING. DENIES POPPING/GRINDING. HAS HAD FEELING OF ACHE AND CRAMPING FROM KNEE DOWN. DOES NOT WAKE AT HS, BUT KEEPS HER UP AT HS. DOES NOT TRUST KNEE, AFRAID IT WILL GIVE OUT. HAS BEEN DOING HEP. TRIED PREDNISONE. ALSO NOTES RT ANKLE PAIN, HX RT ANKLE SX. PAST MEDICAL HISTORY: Past Medical History: Diagnosis Date DUB (dysfunctional uterine bleeding) PTSD (post-traumatic stress disorder) ([facility]) PAST SURGICAL HISTORY: Past Surgical History: Procedure Laterality Date ANKLE SURGERY Right 2003 repair BREAST LUMPECTOMY Right SECTION, CLASSIC ALLERGIES: No Known Allergies HOME MEDICATIONS: Current Outpatient Medications Medication Instructions diclofenac (Voltaren) 75 MG EC tablet Every 12 hours Imitrex 100 MG tablet Every 12 hours metFORMIN XR (GLUCOPHAGE-XR) 500 mg, Oral, Daily with evening meal, Do not crush, chew, or split. predniSONE (Deltasone) 10 MG tablet 1 tablet twice daily x 7 days; followed by 1 tablet daily as directed until complete predniSONE (Deltasone) 10 MG tablet 1 tablet twice daily x 7 days; followed by 1 tablet daily as directed until complete Vitals: Body mass index is 35.44 kg/m . PHYSICAL EXAM: Knee Musculoskeletal Exam Gait Gait is normal. Antalgic: right Inspection Leg length disparity: no discrepancy Right Erythema: none Effusion: none Edema: mild Ecchymosis: none Deformity: none Alignment: normal Palpation Right Increased warmth: none Masses: none Tenderness: present Medial joint line: moderate Range of Motion Right Right knee range of motion is normal and full. Range of motion additional comments: + PAIN ON TERMINAL FLEXION AND EXTENSION Strength Right Right knee strength is normal. Extension: 5/5. Extension is affected by pain. Flexion: 5/5. Flexion is affected by pain. Instability Right Instability signs: none - stable Varus stress grade: normal Valgus stress grade: normal Anterior drawer: normal Medial Brayden test: positive Neurovascular Right Right knee neurovascular exam is normal. Pulses - PT: normal Posterior tibial: 2+ Capillary refill: warm and well-perfused Special Signs Right Right knee special signs are normal. Patellar apprehension: none General Constitutional: appears stated age Labored breathing: no Psychiatric: normal mood and affect Neurological: alert Skin: intact Lymphadenopathy: none IMAGING: XR knee 1 or 2 views right Imaging Result: AP and lateral of right knee showed excellent preservation of joint space heights there was no flattening of the articular surfaces tricompartmentally. There was no evidence of marginal osteophytic formation. Overall alignment appeared to be normal. There was no evidence of fracture or dislocation. Bony structures in view showed excellent ossification. Impression: No acute bony process, right knee Procedures ASSESSMENT: ICD-10-CM 1. Internal derangement of right knee M23.91 MR knee right wo IV contrast 2. Right knee pain, unspecified chronicity M25.561 XR knee 1 or 2 views right PLAN: I reviewed xray findings with the patient and discussed treatment options, answered questions. She has tried HEP, NSAIDs, and prednisone since injury in January with no relief. Patient has positive Brayden and catching/locking with squatting. I recommend MRI of the right knee to evaluate for medial meniscus tear. Follow up post MRI. Questions answered in laymen terms at the bedside. The diagnosis, home exercise plan and any ongoing restrictions/ recommendations reviewed. If unable to be reached in office, I recommend evaluation at nearest Emergency Room if any symptoms worsened or new symptoms develop for requiring urgent evaluation. Murray Rodriguez APRN-[employer]ATON TWIRLER documented in this encounter [facility] Healthcare Evaluation note Note Date & Type Note Facility Evaluation note Diagnosis Internal derangement of right knee- Primary Right knee pain, unspecified chronicity documented in this encounter [facility] Healthcare Evaluation note Note Date & Type Note Facility Evaluation note Diagnosis Internal derangement of right knee- Primary documented in this encounter [facility] Healthcare Summary Purpose Family History No Family History Records FoundNo Family History Records FoundNo Family History Records Found Advance Directives No Advanced Directives Records FoundNo Advanced Directives Records FoundNo Advanced Directives Records Found Reason for Referral Specialty Diagnoses / Procedures Referred By Cecily randall Referred To Contact Radiology Diagnoses Internal derangement of right knee Procedures MR knee right wo IV contrast Murray Rodriguez NP [address] [place] [address] [facility] [address] [facility] [address] [place] [address] Referral ID Status Reason Start Date Expiration Date V isits Requested Visits Authorized [id number] Pending Review 06/08/2024 12/05/2024 1 1 Additional Source Comments INFORMATION SOURCE (unrecogn ized section and content) DATE CREATED AUTHOR 02/02/2022 [facility] DATE CREATED AUTHOR AUTHOR'S ORGANIZ ATION 02/10/2023 [facility] DATE CREATED AUTHOR AUTHOR'S ORGANIZ ATION 07/07/2024 [facility] EPIC Reason for Visit (unrecogniz ed section and content) Reason Comments Pain Reason Comments Pain Care Teams (unrecognized sec tion and content) Lease Administration Analyst Relationship Specialty Start Date End Date Dano Rodríguez MD [address] [place] [phone] PCP - General Family Medicine 01/06/24 Lease Administration Analyst Relationship Specialty Start Date End Date Dano Rodríguez MD [address] [place] [phone] PCP - General Family Medicine 01/06/24 Lease Administration Analyst Relationship Specialty Start Date End Date Dano Rodríguez MD [address] [place] [phone] PCP - General Family Medicine 01/06/24 FOR RECORDS PERTAINING TO PATIENTS WHO ARE [...] BE BASED ON THE PRIMARY CLINICAL RECORDS. [employer] [facility]. provides no warranty or guarantee of the accuracy or completeness of information in this document.
== END 2024-11-30 20:16 | disposition home or self-care (01) ==
LOC: LAB 20:15
PROVIDERS: Visit Provider Obstetrics & Gynecology
DX: N75.0 Cyst of Bartholin's gland (principal)
CPT/HCPCS: 87070

== ENCOUNTER 2025-01-13 07:17 | Outpatient (OUT) | payer BC, SELFPAY ==
--- OUTSIDE RECORDS SUMMARY | 2025-01-13 07:19 | XMS_ITS | CCD ---
Author Organization [facility] Care Team Providers Care Visual Display Manager Name Role Phone SEB WALLER Admitting Unavailable [...] HOY ., DR MATSON Admitting Unavailable REQUEST, DR NONE LISTED Primary Care [...] REQUEST, NONE LISTED Primary Care Unavaila ble Dano Rodríguez MD Primary Care Provider [phone] JOVANY BARRERA Attending Unavailable JOVANY BARRERA Attending Unavailable RUSHERCAROLINA Attending Unavailable RUSHER, CAROLINA Wild Referring Unavailable RUSHER, CAROLINA Wild Attending Unavailable RUSCAROLINA LANZA Referring Unavailable JOVANY BARRERA Attending Unavailable RUSHER, CAROLINA Wild Attending Unavailable RUS, CAROLINA Wild Referring Unavailable MURRAY RODRIGUEZ Attending Unavailable MURRAY RODRIGUEZ Referring Unavailable MURRAY RODRIGUEZ Referring Unavailable JR. CALDWELL GEORGE C Attending Unavaila ble Medications Current Medications Medication Drug Class(es) Dates Sig (Normalized) Sig (Original) 24 hr metFORMIN hydrochloride 500 mg extended release oral tablet (9 sources) Biguanide Start: 01-14-2024 End: 01-08-2025 take 1 tablet by mouth every twenty-four hours at mealtime metFORMIN XR (Glucophage-XR) 500 MG 24 hr tablet Indications: Insulin resistance Take 1 tablet (500 mg) by mouth in the evening. Take with meals Do not crush, chew, or split. 30 tablet 11 01/14/2024 01/08/2025 Active sulfamethoxazole 800 mg / trimethoprim 160 mg oral tablet (2 sources) Dihydrofolate Reductase Inhibitor Antibacterial, Sulfonamide Antimicrobial Start: 11-30-2024 End: 12-05-2024 take 1 tablet by mouth once in the morning, then take 1 tablet by mouth once at bedtime sulfamethoxazol e-trimethoprim (Bactrim DS) 800-160 MG per tablet Indications: Bartholin's gland cyst Take 1 tablet by mouth in the morning and 1 tablet before bedtime. Do all this for 5 days. 10 tablet 11/30/2024 12/05/2024 Active SUMAtriptan 100 mg oral tablet (9 sources) Serotonin-1b and Serotonin-1d Receptor Agonist Start: 01-09-2024 Imitrex 100 MG tablet every 12 (twelve) hours 01/09/2024 Active Completed/Discontinued Medications Medication Drug Class(es) Dates Sig (Normalized) Sig (Original) diclofenac sodium 75 mg delayed release oral tablet (6 sources) Nonsteroidal Anti-inflammatory Drug Start: 4 End: 4 diclofenac (Voltaren) 75 MG EC tablet every 12 (twelve) hours 01/09/2024 07/06/2024 Discontinued (Therapy completed) methylPREDNISolone (5 sources) Corticosteroid Start: 4 End: 5 methylPREDNISolone (Medrol Dospak) 4 MG tablets Indications: Internal derangement of right knee Follow schedule on package instructions 21 tablet 07/06/2024 11/30/2024 Discontinued Start: 07-06-2024 methylPREDNISo lone (Medrol Dospak) 4 MG tablets Indications: Internal derangement of right knee Follow schedule on package instructions 21 tablet 07/06/2024 Active predniSONE 10 mg oral tablet (12 sources) [...] Classification Problem Date Documented Da te Episodic/Chronic Inflammatory diseases of female pelvic organs (2 sources) Cyst of Bartholin's gland duct; Translations: [Cyst of Bartholin's gland] 11-30-2024 Episodic Joint disorders and dislocations; trauma-related (4 sources) [...] Comment: MRI R T knee w/o at [facility]. Orbits if needed. Eval for [...] Impression: No acute bony process, right knee [facility] Radiology Study observation (narrative) [facility] XR Knee - right 1 or 2 Views Ordered By: Jr. Caldwell on 06-08-2024 [facility] [employer] Work Phone: SYMPTOMATIC COVID-19 ANTIGEN on 02-07-2023 EUA Statement SEE BELOW Normal [facility] Comment on above: Result Comment: This [...] sooner. Performed By: #### C VDAGS #### [facility] [address] [place] [address] Dr. Amber Fairbanks SARS-CoV-2 (COVID-19) RNA MARIZOL+probe Ql (Unsp spec) Positive Abnormal NEGATIVE [facility] Comment on above: Performed By: #### C VDAGS #### [facility] [address] [place] [address] Dr. Amber Fairbanks Covid-19 PCR (CVDTB)on 09-13 SARS-CoV-2 (COVID-19) RNA MARIZOL+probe Ql (Unsp spec) Not detected Normal NOT DETECTED [facility] Comment on above: Result Comment: When [...] for this test is supported by the [employer]draulic Plumber of Health and Human Service's declaration that [...] used). Performed By: #### C VDTBH #### [facility] [address] [place] [address] Dr. Amber Fairbanks GROUP A STREP CULTUREon 09-13 S. pyogenes Ag Ql (Unsp spec) Culture Observations: NEGATIVE FOR GROUP A STREPTOCOCCUS. Normal [facility] Comment on above: Performed By: #### C VDAGA #### [facility] [address] [place] [address] Dr. Amber Fairbanks INFLUENZA A AND B AGon 09-27 INFLUENZA A AG Negative Normal NEGATIVE SEE COMMENT [facility] Comment on above: Performed By: #### I NFLUAB #### [facility] [address] [place] [address] Dr. Amber Fairbanks INFLUENZA B AG Negative Normal NEGATIVE SEE COMMENT [facility] Comment on above: Performed By: #### I NFLUAB #### [facility] [address] [place] [address] Dr. Amber Fairbanks INTERNAL CONTROLS Within Normal Limits Normal Within Normal Limits [facility] Comment on above: Performed By: #### I NFLUAB #### [facility] [address] [place] [address] Dr. Amber Fairbanks STREPT SCREENon 09-27-2022 STREP SCREEN A Negative Normal NEGATIVE [facility] Comment on above: Performed By: #### C VDAGA #### [facility] [address] [place] [address] Dr. Amber Fairbanks CBC AUTO DIFFon 05-30-2022 BASO # 0.0 103/ul Normal 0.0-0.1 [facility] Comment on above: Performed By: #### C BC #### [facility] [address] [place] [address] Dr. Amber Fairbanks Basophils/100 WBC (Bld) 0.3 % Normal 0.2-2.0 [facility] Comment on above: Performed By: #### C BC #### [facility] [address] [place] [address] Dr. Amber Fairbanks EO # 0.0 103/ul Normal 0.0-0.7 [facility] Comment on above: Performed By: #### C BC #### [facility] [address] [place] [address] Dr. Amber Fairbanks Eosinophils/100 WBC (Bld) 0.3 % Critically low 0.9-7.0 [facility] Comment on above: Performed By: #### C BC #### [facility] [address] [place] [address] Dr. Amber Fairbanks Erythrocyte distribution width (RBC) [Ratio] 12.8 % Normal 11.0-15.0 [facility] Comment on above: Performed By: #### C BC #### [facility] [address] [place] [address] Dr. Amber Fairbanks Hematocrit (Bld) [Volume fraction] 38.5 % Normal 36.0-48.0 [facility] Comment on above: Performed By: #### C BC #### [facility] [address] [place] [address] Dr. Amber Fairbanks Hemoglobin (Bld) [Mass/Vol] 12.9 g/dL Normal 12.0-16.0 [facility] Comment on above: Performed By: #### C BC #### [facility] [address] [place] [address] Dr. Amber Fairbanks IG # 0.00 10e3/ul Normal 0.00-0.03 [facility] Comment on above: Performed By: #### C BC #### [facility] [address] [place] [address] Dr. Amber Fairbanks IG % 0.0 % Normal 0.0-0.5 [facility] Comment on above: Performed By: #### C BC #### [facility] [address] [place] [address] Dr. Amber Fairbanks LYMPH # 1.1 103/ul Critically low 1.2-3.8 [facility] Comment on above: Performed By: #### C BC #### [facility] [address] [place] [address] Dr. Amber Fairbanks Lymphocytes/100 WBC (Bld) 27.2 % Normal 20.5-60.0 [facility] Comment on above: Performed By: #### C BC #### [facility] [address] [place] [address] Dr. Amber Fairbanks MANUAL DIFF REQ NO Normal [facility] Comment on above: Performed By: #### C BC #### [facility] [address] [place] [address] Dr. Amber Fairbanks MCH (RBC) [Entitic mass] 29.1 pg Normal 26.7-34.0 [facility] Comment on above: Performed By: #### C BC #### [facility] [address] [place] [address] Dr. Amber Fairbanks MCHC (RBC) [Mass/Vol] 33.5 g/dL Normal 29.9-35.2 [facility] Comment on above: Performed By: #### C BC #### [facility] [address] [place] [address] Dr. Amber Fairbanks MCV (RBC) [Entitic vol] 86.7 fL Normal 81.0-99.0 [facility] Comment on above: Performed By: #### C BC #### [facility] [address] [place] [address] Dr. Amber Fairbanks MONO # 0.5 103/ul Normal 0.3-0.8 [facility] Comment on above: Performed By: #### C BC #### [facility] [address] [place] [address] Dr. Amber Fairbanks Monocytes/100 WBC (Bld) 13.5 % Critically high 1.7-12.0 [facility] Comment on above: Performed By: #### C BC #### [facility] [address] [place] [address] Dr. Amber Fairbanks NEUT # 2.3 103/ul Normal 1.4-6.5 [facility] Comment on above: Performed By: #### C BC #### [facility] [address] [place] [address] Dr. Amber Fairbanks Neutrophils/100 WBC (Bld) 58.7 % Normal 43.0-75.0 [facility] Comment on above: Performed By: #### C BC #### [facility] [address] [place] [address] Dr. Amber Fairbanks Platelet mean volume (Bld) [Entitic vol] 10.5 fL Normal 9.5-13.5 [facility] Comment on above: Performed By: #### C BC #### [facility] [address] [address] [address] Amber Fairbanks PLT 241 103/ul Normal 150-450 [facility] Comment on above: Performed By: #### C BC #### [facility] [address] [id number] Amber Fairbanks RBC 4.44 106/ul Normal 4.20-5.40 [facility] Comment on above: Performed By: #### C BC #### [facility] [address] [address] [address] Amber Fairbanks WBC 3.9 103/ul Critically low 4.0-11.0 [facility] Comment on above: Performed By: #### C BC #### [facility] [address] [place] [address] Dr. Amber Fairbanks CPKon 05-30-2022 CK [Catalytic activity/Vol] 178 U/L Normal 26-192 [facility] Comment on above: Performed By: #### C MP, CK #### [facility] [address] [address] [address] Amber Fairbanks Covid-19 PCR (CVDTB)on 05-14 SARS-CoV-2 (COVID-19) RNA MARIZOL+probe Ql (Unsp spec) Not detected Normal NOT DETECTED [facility] Comment on above: Result Comment: This test is not yet approved or cleared by the [place] FDA. When there are no FDA-approved or cleared tests available, and other criteria are met, FDA can make tests available under an emergency access mechanism called an Emergency Use Authorization (EUA). The EUA for this test is supported by the [employer] of Health and Human Service's (HHS's) declaration [...] SARS-CoV-2. Performed By: #### C VDTBH #### [facility] [address] [place] [address] Dr. Amber Fairbanks INFLUENZA A AND B AGon 05-30 INFLUENZA A AG Negative Normal NEGATIVE SEE COMMENT [facility] Comment on above: Performed By: #### C VDAGA #### [facility] [address] [place] [address] Dr. Amber Fairbanks INFLUENZA B AG Negative Normal NEGATIVE SEE COMMENT [facility] Comment on above: Performed By: #### C VDAGA #### [facility] [address] [place] [address] Dr. Amber Fairbanks INTERNAL CONTROLS Within Normal Limits Normal Within Normal Limits [facility] Comment on above: Performed By: #### C VDAGA #### [facility] [address] [place] [address] Dr. Amber Fairbanks MONOon 05-30-2022 Monocytes (Bld) [#/Vol] Negative Normal NEGATIVE [facility] Comment on above: Performed By: #### C VDAGA #### [facility] [address] [place] [address] Dr. Amber Fairbanks PROF 14(COMP METB)on 022 Albumin [Mass/Vol] 3.7 g/dL Normal 3.4-5.0 [facility] Comment on above: Performed By: #### C VDAGA #### [facility] [address] [place] [address] Dr. Amber Fairbanks Albumin/Globulin [Mass ratio] 0.8 {ratio} Normal [facility] Comment on above: Performed By: #### C VDAGA #### [facility] [address] [place] [address] Dr. Amber Fairbanks ALP [Catalytic activity/Vol] 72 U/L Normal 46-116 [facility] Comment on above: Performed By: #### C VDAGA #### [facility] [address] [place] [address] Dr. Amber Fairbanks ALT [Catalytic activity/Vol] 20 U/L Normal 14-59 [facility] Comment on above: Performed By: #### C VDAGA #### [facility] [address] [address] [address] Amber Fairbanks Anion gap [Moles/Vol] 14.7 mmol/L Normal [facility] Comment on above: Performed By: #### C VDAGA #### [facility] [address] [address] [address] Amber Fairbanks AST [Catalytic activity/Vol] 26 U/L Normal 15-37 [facility] Comment on above: Performed By: #### C VDAGA #### [facility] [address] [address] [address] Amber Fairbanks Bilirubin [Mass/Vol] 0.5 mg/dL Normal 0.2-1.0 [facility] Comment on above: Performed By: #### C VDAGA #### [facility] [address] [address] [address] Amber Fairbanks Calcium [Mass/Vol] 8.8 mg/dL Normal 8.5-10.1 [facility] Comment on above: Performed By: #### C VDAGA #### [facility] [address] [address] [address] Amber Fairbanks Chloride [Moles/Vol] 101 mmol/L Normal 98-107 [facility] Comment on above: Performed By: #### C VDAGA #### [facility] [address] [address] [address] Amber Fairbanks CO2 [Moles/Vol] 24.9 mmol/L Normal 21.0-32.0 [facility] Comment on above: Performed By: #### C VDAGA #### [facility] [address] [address] [address] Amber Fairbanks Creatinine [Mass/Vol] 0.83 mg/dL Normal 0.55-1.02 [facility] Comment on above: Performed By: #### C VDAGA #### [facility] [address] [address] [address] Amber Fairbanks EGFR-AF NIUEAN >60 Normal >=60 [facility] Comment on above: Performed By: #### C VDAGA #### [facility] [address] [address] [address] Amber Fairbanks EGFR-NON AF NIUEAN >60 Normal >=60 [facility] Comment on above: Performed By: #### C VDAGA #### [facility] [address] [address] [address] Amber Fairbanks Globulin (S) [Mass/Vol] 4.4 g/dL Normal [facility] Comment on above: Performed By: #### C VDAGA #### [facility] [address] [address] [address] Amber Fairbanks Glucose [Mass/Vol] 88 mg/dL Normal 74-106 [facility] Comment on above: Performed By: #### C VDAGA #### [facility] [address] [place] [address] Dr. Amber Fairbanks Potassium [Moles/Vol] 3.6 mmol/L Normal 3.5-5.1 [facility] Comment on above: Performed By: #### C VDAGA #### [facility] [address] [address] [address] Amber Fairbanks Protein [Mass/Vol] 8.1 g/dL Normal 6.4-8.2 [facility] Comment on above: Performed By: #### C VDAGA #### [facility] [address] [place] [address] Dr. Amber Fairbanks Sodium [Moles/Vol] 137 mmol/L Normal 136-145 [facility] Comment on above: Performed By: #### C VDAGA #### [facility] [address] [address] [address] Amber Fairbanks Urea nitrogen [Mass/Vol] 11.0 mg/dL Normal 7.0-18.0 [facility] Comment on above: Performed By: #### C VDAGA #### [facility] [address] [address] [address] Amber Fairbanks Urea nitrogen/Creatinin e [Mass ratio] 13.3 mg/mg Normal [facility] Comment on above: Performed By: #### C VDAGA #### [facility] [address] [address] [address] Amber Fairbanks [facility] SED RATE 27 mm/hr Critically high <=20 [facility] Comment on above: Performed By: #### S EDR #### [facility] [address] [address] [address] Amber Fairbanks US PORSHA DOP LEG [...] CAROLINA CAMPOS Date: 2022-05-30 10:21 Normal [facility]14 SARS-CoV-2 (COVID-19) RNA MARIZOL+probe Ql (Unsp spec) Not detected Normal NOT DETECTED [facility] Comment on above: Result Comment: When [...] for this test is supported by the Hydraulic Plumber of Health and Human Service's declaration that [...] used). Performed By: #### C VDAGA #### [facility] [address] [address] [address] Amber Fairbanks ASYMPTOMATIC COVID-19 ANTIGE Non 04-23-2022 EUA Statement SEE BELOW Normal [facility] Comment on above: Result Comment: This [...] sooner. Performed By: #### C VDAGA #### [facility] [address] [place] [address] Dr. Amber Fairbanks SARS-CoV-2 (COVID-19) RNA MARIZOL+probe Ql (Unsp spec) Positive Critically abnormal NEGATIVE [facility] Comment on above: Result Comment: SARS -CoV-2 antigen present; does not rule out coinfection with other pathogens. Performed By: #### C VDAGA #### [facility] [address] [place] [address] Dr. Amber Fairbanks [facility]19 PCR [facility]on SARS-CoV-2 (COVID-19) RNA MARIZOL+probe Ql (Unsp spec) Detected Critically abnormal NOT DETECTED [facility] Comment on above: Result Comment: This test is not yet approved or cleared by the [place] FDA. When there are no FDA-approved or cleared tests available, and other criteria are met, FDA can make tests available under an emergency access mechanism called an Emergency Use Authorization (EUA). The EUA for this test is supported by the Hydraulic Plumber of Health and Human Service's declaration that [...] used). Performed By: #### C VDTBH #### [facility] [address] [place] [id number] [address] Amber Fairbanks Covid-19 PCR ([facility])on SARS-CoV-2 (COVID-19) RNA MARIZOL+probe Ql (Unsp spec) Not detected Normal NOT DETECTED [facility] Comment on above: Result Comment: When [...] for this test is supported by the [place] of Health and Human Service's declaration that [...] used). Performed By: #### C VDTBH #### [facility] [address] [place] [id number] [address] Amber Fairbanks Provider Letteron 01-31-2022 Provider Letter January 31, 2022 MAGED ARCINIEGA [address] [place] [phone] MAGED ARCINIEGA 1985 Dear Maged Brenner , We have been trying to reach you with no success. It is important that you return our call regarding your referral from Dr. Rodríguez upon receiving this letter. Also, at the time of your call, please provide us with your current information. Thank you for your prompt attention to this matter. Sincerely, General Surgery [phone] Normal [facility] Vital Signs Date Time Vital Sign Value Performing Clinician Faci lity 11-30-2024 13:05-0500 Body mass index (BMI) [Ratio] 33.78 kg/m2 Jovany Holly DO Work Phone: [facility] 11-30-2024 13:05-0500 Body weight 119.35 kg Jovany Holly DO Work Phone: [facility] 11-30-2024 13:05-0500 Diastolic blood pressure 84 mm[Hg] Jovany Holly DO Work Phone: [facility] 11-30-2024 13:05-0500 Systolic blood pressure 122 mm[Hg] Jovany Ohlly DO Work Phone: [facility] 06-08-2024 14:19-0400 Body height 188 cm Murray Rodriguez NP Work Phone: [facility] 06-08-2024 14:19-0400 Body mass index (BMI) [Ratio] 35.44 kg/m2 Murray Rodriguez NP Work Phone: [facility] 06-08-2024 14:19-0400 Body weight 125.19 kg Murray Rodriguez NP Work Phone: [facility] Encounters Encounter Date Encounter Type Care Provider Facility Start: 11-30-2024 End: 11-30-2024 Bamboo flowsheet Jovany Holly DO Work Phone: [facility] Start: 11-30-2024 End: 11-30-2024 Bamboo flowsheet Jovany Holly DO Work Phone: [facility] Start: 11-30-2024 End: 11-30-2024 Office outpatient visit 15 minutes Jovany Holly DO Work Phone: [facility] Comment on above: Bartholin's gland [facility] Start: 11-30-2024 End: 11-30-2024 ambulatory JOVANY HOLLY Not Available Start: 07-06-2024 End: 07-06-2024 Bamboo flowsheet Jr. Meg Caldwell DO Work Phone: [facility] Start: 07-06-2024 End: 07-06-2024 Bamboo flowsheet Meg Christopher Steptejas DO Work Phone: [facility] Start: 07-06-2024 End: 07-06-2024 ambulatory JR., MEG Christopher STEPTEJAS Not Available Start: 07-06-2024 End: 07-06-2024 Office outpatient visit 25 minutes Genoveva White Steptejas DO Work Phone: [facility] Comment on above: Internal derangement of right knee (Primary Dx) Start: 06-12-2024 End: 06-12-2024 ambulatory MURRAY RODRIGUEZ Not Available Start: 06-08-2024 End: 06-08-2024 ambulatory MURRAY RODRIGUEZ Not Available Start: 06-08-2024 End: 06-08-2024 Bamboo flowsheet Murray Rodriguez BIOMETRICS INSTRUCTOR Work Phone: [facility] Start: 06-08-2024 End: 06-08-2024 Bamboo flowsheet Murray Rodriguez BIOMETRICS INSTRUCTOR Work Phone: [facility] Start: 06-08-2024 End: 06-08-2024 Office outpatient new 30 minutes Murray Rodriguez BIOMETRICS INSTRUCTOR Work Phone: [facility] Comment on above: Internal derangement of right knee (Primary Dx); Right knee pain, unspecified chronicity Start: 03-06-2024 End: 03-06-2024 ambulatory CAROLINA A RUSHER Not Available Start: 03-06-2024 End: 03-06-2024 ambulatory CAROLINA A RUSHER Not Available Start: 03-02-2024 End: 03-02-2024 ambulatory JOVANY HOLLY Not Available Start: 02-11-2024 End: 02-11-2024 ambulatory CAROLINA A RUSHER Not Available Start: 02-11-2024 End: 02-11-2024 ambulatory CAROLINA A RUSHER Not Available Start: 01-17-2024 End: 01-17-2024 ambulatory CAROLINA A RUSHER Not Available Start: 01-17-2024 End: 01-17-2024 ambulatory CAROLINA A RUSHER Not Available Start: 01-06-2024 End: 01-06-2024 ambulatory JOVANY HOLLY Not Available Start: 02-07-2023 End: 02-07-[address] DANO RODRÍGUEZ . Facility: Start: 09-27-2022 End: 09-27-[address] DANO RODRÍGUEZ . Facility:[facility] Start: 05-30-2022 End: 05-31-[address] DANO RODRÍGUEZ . Facility:[facility] Start: 05-28-2022 End: 05-28-2022 ambulatory NONE LISTED REQUEST Facility:[facility] Start: 04-23-2022 End: 04-23-2022 ambulatory NONE LISTED REQUEST Facility:[facility] Start: 04-17-2022 End: 04-17-2022 ambulatory SEB WALLER Facility: Start: 04-13-2022 End: 04-13-[address] DANO RODRÍGUEZ . Facility: Procedures Date Procedure Procedure Detail Performing Clinician Start: 06-08-2024 Radiologic examinati on knee 1/2 views Murray Rodriguez BIOMETRICS INSTRUCTOR Work Phone: Plan of Treatment Date Care Activity Detail Author Start: 03-09-2025 End: 03-09-2025 Patient encounter procedure 03/09/2025 8:30 AM EDT Office Visit [facility] [address] [place] [id number] Jovany Barrera, DO [address] [place] [address] [facility] Start: 12-28-2024 End: 12-28-2024 Patient encounter procedure 12/28/2024 10:40 AM EDT Office Visit [facility] [address] [place] [id number] Jovany Barrera, DO [address] [place] [address] [facility] Start: 11-30-2024 End: 11-30-2025 Anaerobic culture Anaerobic culture Microbiology Routine Bartholin's gland cyst Expected: 11/30/2024 (Approximate), Expires: 11/30/2025 [facility] Work Phone: Comment on above: Expected: 11/30/2024 (Approximate), Expires: 11/30/2025 Start: 11-30-2024 End: 11-30-2024 Patient encounter procedure 11/30/2024 1:00 PM EST Office Visit [facility] [address] [place] [address] Jovany Barrera DO [address] [address] Arrived [facility] Comment on above: Arrived Start: 06-08-2024 End: 06-08-2025 MR Knee - right WO contrast MR knee right wo IV contrast Imaging Routine Internal derangement of right knee Expected: 06/08/2024 (Approximate), Expires: 06/08/2025 [facility] Work Phone: Comment on above: Expected: 06/08/2024 (Approximate), Expires: 06/08/2025 Aerobic culture Aerobic culture Microbiology Routine Bartholin's gland cyst Ordered: 11/30/2024 [facility] Comment on above: Ordered: 11/30/2024 Immunizations Immunization Date Immunization Notes Care Provider Jeimy peacock 05-04-2020 tetanus toxoid, redu janine diphtheria toxoid, and acellular pertussis vaccine, adsorbed Murray Rodriguez BIOMETRICS INSTRUCTOR Work Phone: [facility] 04-02-2010 tetanus toxoid, redu janine diphtheria toxoid, and acellular pertussis vaccine, adsorbed Murray Rodriguez BIOMETRICS INSTRUCTOR Work Phone: [facility] 08-19-2009 novel influenza-H1N1 -09, preservative-free, injectable Murray Rodriguez BIOMETRICS INSTRUCTOR Work Phone: [facility] 07-30-2007 influenza virus vacc ine, whole virus Murray Rodriguez BIOMETRICS INSTRUCTOR Work Phone: [facility] Payers Date Payer Category Payer [facility] [id number] 2022 Unknown BCBS BCBS xxxxxx [id number] 2022-Present [phone] [address] [place] [address] [id number]. [id number] 2019 Unknown [id number] 1985 Unknown [id number] 2.16840.1.399031.3.579.2. 593 1985 Unknown [id number] 2.16840.1.570970.3.579.2. 593 1985 Unknown [id number] 2.16840.1.638949.3.579.2. 593 1985 Unknown [id number] 2.16840.1.928315.3.579.2. 593 1985 Unknown [id number] 2.16840.1.273176.3.579.2. 593 1985 Unknown [id number] 2.16840.1.432119.3.579.2. 593 1985 Unknown [id number] 2.16840.1.164586.3.579.2. 593 1985 Unknown [id number] 2.16.840.1.716259.3.579.2. 1259 1985 Unknown [id number] 2.16840.1.425886.3.579.2. 1259 1985 Unknown [id number] 2.16840.1.579878.3.579.2. 1259 1985 Unknown [id number] 2.16.840.1.915312.3.579.2. 1258 1985 Unknown [id number] 2.16.840.1.142397.3.579.2. 1258 1985 Unknown [id number] 2.16.840.1.413800.3.579.2. 1258 1985 Unknown [id number] 2.16.840.1.044551.3.579.2. 1258 1985 Unknown [id number] 2.16.840.1.640960.3.579.2. 1258 1985 Unknown [id number] 2.16.840.1.365770.3.579.2. 1258 1985 Unknown [id number] 2.16.840.1.268813.3.579.2. 1258 1985 Unknown [id number] 2.16.840.1.926924.3.579.2. 1258 1985 Unknown [id number] 2.16.840.1.236518.3.579.2. 1258 1985 Unknown [id number] 2.16.840.1.704774.3.579.2. 9 1959 Unknown [id number] Social History Date Type Detail Facility Start: 01-17-2024 Tobacco smoking stat [facility] Never smoked tobacco [facility] Start: 01-17-2024 Tobacco use and exposure Smoke less tobacco non-user [facility] Start: 06-08-2024 End: 07-06-2024 Alcoholic beverage intake Current drinker of alcohol (finding) [facility] Start: 06-08-2024 End: 07-06-2024 [facility] Start: 06-08-2024 End: 07-06-2024 Tobacco use panel [facility] Start: 01-05-2024 Alcohol Comment caffeine: soda, coff ee [facility] Start: 1985 Sex assigned at Not on file [facility] History of Present illness Narrative 11-30-2024 Jessy Mckeon LPN - 11/30/2024 1:00 PM EST Note Date & Type Note Facility 11-30-2024 History of Presen t illness Narrative Reason for Appointment: Patient ID: Maged Arciniega is a 39 y.o. female who presents for Bartholin's Cyst Patient presents today for Consult appointment. MEDICATIONS Current Outpatient Medications Medication Instructions Imitrex 100 MG tablet Every 12 hours metFORMIN XR (GLUCOPHAGE-XR) 500 mg, Oral, Daily with evening meal, Do not crush, chew, or split. ALLERGIES No Known Allergies PROBLEMS Active Ambulatory Problems Diagnosis Date Noted No Active Ambulatory Problems Resolved Ambulatory Problems Diagnosis Date Noted No Resolved Ambulatory Problems Past Medical History: Diagnosis Date DUB (dysfunctional uterine bleeding) PTSD (post-traumatic stress disorder) ([facility]) HISTORY PAST MEDICAL HISTORY SOCIAL HISTORY Past Medical History: Diagnosis Date DUB (dysfunctional uterine bleeding) PTSD (post-traumatic stress disorder) ([facility]) Social History Tobacco Use Smoking status: Never Smokeless tobacco: Never Vaping Use Vaping status: Never Used Substance Use Topics Alcohol use: Yes Comment: caffeine: soda, coffee Drug use: Never FAMILY HISTORY Family History Problem Relation Name Age of Onset Hypertension Other Heart disease Other SURGICAL HISTORY Past Surgical History: Procedure Laterality Date ANKLE SURGERY Right 2003 repair BREAST LUMPECTOMY Right SECTION, CLASSIC REVIEW OF SYSTEMS Review of Systems: Review of Systems All other systems reviewed and are negative. OBJECTIVE Objective: Physical Exam Constitutional: Appearance: Normal appearance. She is well-developed. Genitourinary: Vulva normal. Cardiovascular: Rate and Rhythm: Normal rate and regular rhythm. Pulmonary: Effort: Pulmonary effort is normal. Breath sounds: Normal breath sounds. Abdominal: General: Bowel sounds are normal. There is no distension. Palpations: Abdomen is soft. Tenderness: There is no abdominal tenderness. There is no guarding or rebound. Musculoskeletal: General: No swelling. Normal range of motion. Right lower leg: No edema. Left lower leg: No edema. Neurological: Mental Status: She is alert and oriented to person, place, and time. Skin: General: Skin is warm and dry. Psychiatric: Mood and Affect: Mood normal. Behavior: Behavior normal. Vitals and nursing note reviewed. Exam conducted with a quality control clerk present. Vitals: Estimated body mass index is 33.78 kg/m as calculated from the following: Height as of 06/08/24: 6' 2 . Weight as of this encounter: 263 lb 1.9 oz. BP: 122/84 No LMP recorded. ASSESSMENT & PLAN ICD-10-CM 1. Bartholin's gland cyst N75.0 Patient presents to assess bartholin cyst. Cultures obtained from buttocks. Patient to return to clinic in 4 weeks for annual appointment and recheck on cyst. Bactrim to be sent to patients pharmacy and patient to stop other antibiotics that were previously prescribed. Documented by Jessy Mckeon LPN on behalf of: Jovany Barrera DO documented in this encounter [facility] History of Present illness Narrative 07-06-2024 [...] (dysfunctional uterine bleeding) PTSD (post-traumatic stress disorder) ([facility]) PAST SURGICAL HISTORY: Past Surgical History: Procedure Laterality Date ANKLE SURGERY Right 2002 repair BREAST LUMPECTOMY Right SECTION, CLASSIC ALLERGIES: [...] develop for requiring urgent evaluation. Murray Rodriguez APRN-CAR FRAMER documented in this encounter [facility] Evaluation note Note Date & Type Note Facility Evaluation note Diagnosis Internal derangement of right knee- Primary Right knee pain, unspecified chronicity documented in this encounter [facility] Evaluation note Note Date & Type Note Facility Evaluation note Diagnosis Internal derangement of right knee- Primary documented in this encounter [facility] Evaluation note Note Date & Type Note Facility Evaluation note Diagnosis Bartholin's gland cyst Cyst of Bartholin's gland documented in this encounter [facility] Summary Purpose Family History No Family History Records FoundNo Family History Records FoundNo Family History Records Found Advance Directives No Advanced Directives Records FoundNo Advanced Directives Records FoundNo Advanced Directives Records Found Reason for Referral Specialty Diagnoses / Procedures Referred By Cecily randall Referred To Contact Radiology Diagnoses Internal derangement of right knee Procedures MR knee right wo IV contrast Murray Rodriguez, BIOMETRICS INSTRUCTOR [address] [place] [address] [facility] [address] [facility] [address] [place] [address] Referral ID Status Reason Start Date Expiration Date V isits Requested Visits Authorized [id number] Pending Review 06/08/2024 12/05/2024 1 1 Additional Source Comments INFORMATION SOURCE (unrecogn ized section and content) DATE CREATED AUTHOR 02/02/2022 [facility] DATE CREATED AUTHOR AUTHOR'S ORGANIZ ATION 02/10/2023 [facility] DATE CREATED AUTHOR AUTHOR'S ORGANIZ ATION 12/01/2024 [facility] EPIC Reason for Visit (unrecogniz ed section and content) Reason Comments Pain Reason Comments Pain Reason Comments Bartholin's Cyst Care Teams (unrecognized sec tion and content) Visual Display Manager Relationship Specialty Start Date End Date Dano Rodríguez MD [address] [place] [address] PCP - General Family Medicine 01/06/24 Visual Display Manager Relationship Specialty Start Date End Date Dano Rodríguez MD [address] [place] [address] PCP - General Family Medicine 01/06/24 Visual Display Manager Relationship Specialty Start Date End Date Dano Rodríguez MD [address] [place] [address] PCP - General Family Medicine 01/06/24 Visual Display Manager Relationship Specialty Start Date End Date Dano Rodríguez MD [address] [place] [phone] PCP - General Family Medicine 01/06/24 Visual Display Manager Relationship Specialty Start Date End Date Dano Rodríguez MD [address] [place] [phone] PCP - General Family Medicine 01/06/24 FOR [...] BE BASED ON THE PRIMARY CLINICAL RECORDS. [facility] [employer] [facility]. provides no warranty or guarantee of the accuracy or completeness of information in this document.
[2025-01-13 07:35] LABS: Basophils Percent Auto 0.4 % (0.2-2.0); Eosinophils Absolute Auto 0.1 10^3/uL (0.0-0.7); Hematocrit 36.6 % (36.0-48.0); Hemoglobin 12.2 g/dL (12.0-16.0); Immature Granulocytes Abs Auto 0.01 10^3/uL (0.00-0.03); Immature Granulocytes Pct Auto 0.2 % (0.0-0.5); Lymphocytes Absolute Auto 1.7 10^3/uL (1.2-3.8); Lymphocytes Percent Auto 32.3 % (20.5-60.0); Mean Corpuscular HGB Conc 33.3 g/dL (29.9-35.2); Mean Corpuscular Hemoglobin 28.2 pg (26.7-34.0); Mean Corpuscular Volume 84.7 fL (81.0-99.0); Mean Platelet Volume 11.1 fL (9.5-13.5); Monocytes Absolute Auto 0.6 10^3/uL (0.3-0.8); Monocytes Percent Auto 10.8 % (1.7-12.0); Neutrophils Absolute Auto 2.8 10^3/uL (1.4-6.5); Neutrophils Percent Auto 55.3 % (43.0-75.0); Platelet Count 244 10^3/uL (150-450); Red Blood Count 4.32 10^6/uL (4.20-5.40); Red Cell Distribution Width 12.6 % (11.0-15.0); White Blood Count 5.1 10^3/uL (4.0-11.0)
[2025-01-13 07:52] LABS: Estimated Average Glucose 111 mg/dL; Glycohemoglobin A1C 5.5 % (4.5-6.2)
[2025-01-13 08:25] LABS: Alanine Aminotransferase 17 U/L (14-59); Albumin Globulin Ratio 0.9; Albumin Level 3.6 g/dL (3.4-5.0); Alkaline Phosphatase 62 U/L (46-116); Anion Gap 14.9; Aspartate Amino Transferase 15 U/L (15-37); BUN Creatinine Ratio 14.1; Bilirubin Total 0.8 mg/dL (0.2-1.0); Calcium 9.1 mg/dL (8.5-10.1); Carbon Dioxide 25.9 mmol/L (21.0-32.0); Chloride 103 mmol/L (98-107); Chol HDL Ratio 2.7; Cholesterol 174 mg/dL (<=200); Estimated GFR (African America >60 (>=60 mL/min/1.73m^2); Estimated GFR (Non-African Ame >60 (>=60 mL/min/1.73m^2); Glucose 101 mg/dL (74-106); HDL Cholesterol 65 mg/dL (40-60); Potassium 3.8 mmol/L (3.5-5.1); Sodium 140 mmol/L (136-145); Thyroid Stimulating Hormone 2.565 uIU/mL (0.358-3.740); Total Protein 7.6 g/dL (6.4-8.2); Triglycerides 61 mg/dL (<=150); VLDL CHOLESTEROL 12.2 mg/dL
[2025-01-14 03:07] LABS: Insulin 9.5 uIU/mL (2.6-24.9)
== END 2025-01-13 07:18 | disposition home or self-care (01) ==
LOC: LAB 07:17
PROVIDERS: PCP Family Medicine; Visit Provider Family Medicine
DX: Z00.00 Encounter for general adult medical examination without abnormal findings (principal)
CPT/HCPCS: 36415; 80053; 80061; 83036; 83525; 84436; 84443; 84481; 85025

== ENCOUNTER 2025-01-27 07:55 | Outpatient (OUT) | payer BC, SELFPAY ==
--- NOTE | 2025-01-27 | US_ITS ---
The [address] [address] Patient Name: MAGED BURKS MRN: [id number] date: 1985 Sex: F Assigned Patient Location: [place] Current Patient Location: [facility] Accession/Order Number: [id number] Exam Date: 01/27/2025 09:12 Report Date: 01/27/2025 09:17 At the request of: DANO BECKFORD MD Procedure: US thyroid THYROID ULTRASOUND CLINICAL DATA: Hypothyroidism and left posterior lump. COMPARISON: None The right thyroid lobe measures 5.4 x 1.3 x 1.0 cm. The left lobe measures 3.1 x 1.3 x 0.9 cm. The isthmus measures 2 - 3 mm. At the midpole the left thyroid lobe, there is a predominantly cystic lesion with mural nodularity measuring 10 x 4 x 8 mm. This may be a colloid cyst. No other thyroid nodularity is seen. At the site of patient's palpable lump at the posterior left upper neck, there is a subcutaneous reniform nodule with echogenic hilus compatible with a lymph node. It measures 13 x 5 x 9 mm. In size US/US thyroid IMPRESSION: LEFT COLLOID CYST. LYMPH NODE AT THE SITE OF PALPABLE CONCERN AT THE POSTERIOR UPPER LEFT NECK. Impression dictated by: Kathrine Adams M.D.01/27/2025 9:17 AM Dictation Location: [place] [address] Electronically authenticated by: [id number] Y Date: 01/27/2025 09:17
--- OUTSIDE RECORDS SUMMARY | 2025-01-27 08:10 | XMS_ITS | CCD ---
Author Organization [facility] Care Team Providers Care Fuselage Framer Name Role Phone SEB WALLER Admitting Unavailable [...] ble Dano Rodríguez MD Primary Care Provider [phone] JOVANY BARRERA Attending Unavailable JOVANY BARRERA Attending [...] Comment: MRI R T knee w/o at [facility]. Orbits if needed. Eval for medial meniscus [...] Impression: No acute bony process, right knee [facility] Radiology Study observation (narrative) [facility] XR Knee - right 1 or 2 Views Ordered By: Jr. Caldwell on 06-08-2024 [facility] [employer] e Work Phone: SYMPTOMATIC COVID-19 ANTIGEN on 02-07-2023 EUA Statement SEE BELOW Normal [facility] Comment on above: Result Comment: This [...] sooner. Performed By: #### C VDAGS #### [facility] [address] [place] [address] Dr. Amber Fairbanks SARS-CoV-2 (COVID-19) RNA MARIZOL+probe Ql (Unsp spec) Positive Abnormal NEGATIVE [facility] Comment on above: Performed By: #### C VDAGS #### [facility] [address] [place] [address] Dr. Amber Fairbanks Covid-19 PCR (CVDTB)on 09-13 SARS-CoV-2 (COVID-19) RNA MARIZOL+probe Ql (Unsp spec) Not detected Normal NOT DETECTED [facility] Comment on above: Result Comment: When diagnostic [...] for this test is supported by the [place] of Health and Human Service's declaration that [...] used). Performed By: #### C VDTBH #### [facility] [address] [place] [address] Dr. Amber Fairbanks GROUP A STREP CULTUREon 09-13 S. pyogenes Ag Ql (Unsp spec) Culture Observations: NEGATIVE FOR GROUP A STREPTOCOCCUS. Normal [facility] Comment on above: Performed By: #### C VDAGA #### [facility] [address] [place] [address] Dr. Amber Fairbanks INFLUENZA A AND B AGon 09-27 INFLUENZA A AG Negative Normal NEGATIVE SEE COMMENT [facility] Comment on above: Performed By: #### I NFLUAB #### [facility] [address] [place] [address] Dr. Amber Fairbanks INFLUENZA B AG Negative Normal NEGATIVE SEE COMMENT [facility] Comment on above: Performed By: #### I NFLUAB #### [facility] [address] [place] [address] Dr. Amber Fairbanks INTERNAL CONTROLS Within Normal Limits Normal Within Normal Limits [facility] Comment on above: Performed By: #### I NFLUAB #### [facility] [address] [place] [address] Dr. Amber Fairbanks STREPT SCREENon 09-27-2022 STREP SCREEN A Negative Normal NEGATIVE [facility] Comment on above: Performed By: #### C VDAGA #### [facility] [address] [place] [address] Dr. Amber Fairbanks CBC AUTO DIFFon 05-30-2022 BASO # 0.0 103/ul Normal 0.0-0.1 [facility] Comment on above: Performed By: #### C BC #### [facility] [address] [place] [address] Dr. Amber Fairbanks Basophils/100 WBC (Bld) 0.3 % Normal 0.2-2.0 [facility] Comment on above: Performed By: #### C BC #### [facility] [address] [place] [address] Dr. Amber Fairbanks EO # 0.0 103/ul Normal 0.0-0.7 [facility] Comment on above: Performed By: #### C BC #### [facility] [address] [place] [address] Dr. Amber Fairbanks Eosinophils/100 WBC (Bld) 0.3 % Critically low 0.9-7.0 [facility] Comment on above: Performed By: #### C BC #### [facility] [address] [place] [address] Dr. Amber Fairbanks Erythrocyte distribution width (RBC) [Ratio] 12.8 % Normal 11.0-15.0 [facility] Comment on above: Performed By: #### C BC #### [facility] [address] [place] [address] Dr. Amber Fairbanks Hematocrit (Bld) [Volume fraction] 38.5 % Normal 36.0-48.0 [facility] Comment on above: Performed By: #### C BC #### [facility] [address] [place] [address] Dr. Amber Fairbanks Hemoglobin (Bld) [Mass/Vol] 12.9 g/dL Normal 12.0-16.0 [facility] Comment on above: Performed By: #### C BC #### [facility] [address] [place] [address] Dr. Amber Fairbanks IG # 0.00 10e3/ul Normal 0.00-0.03 [facility] Comment on above: Performed By: #### C BC #### [facility] [address] [place] [address] Dr. Amber Fairbanks IG % 0.0 % Normal 0.0-0.5 [facility] Comment on above: Performed By: #### C BC #### [facility] [address] [place] [address] Dr. Amber Fairbanks LYMPH # 1.1 103/ul Critically low 1.2-3.8 [facility] Comment on above: Performed By: #### C BC #### [facility] [address] [place] [address] Dr. Amber Fairbanks Lymphocytes/100 WBC (Bld) 27.2 % Normal 20.5-60.0 [facility] Comment on above: Performed By: #### C BC #### [facility] [address] [place] [address] Dr. Amber Fairbanks MANUAL DIFF REQ NO Normal [facility] Comment on above: Performed By: #### C BC #### [facility] [address] [place] [address] Dr. Amber Fairbanks MCH (RBC) [Entitic mass] 29.1 pg Normal 26.7-34.0 [facility] Comment on above: Performed By: #### C BC #### [facility] [address] [place] [address] Dr. Amber Fairbanks MCHC (RBC) [Mass/Vol] 33.5 g/dL Normal 29.9-35.2 [facility] Comment on above: Performed By: #### C BC #### [facility] [address] [place] [address] Dr. Amber Fairbanks MCV (RBC) [Entitic vol] 86.7 fL Normal 81.0-99.0 [facility] Comment on above: Performed By: #### C BC #### [facility] [address] [place] [address] Dr. Amber Fairbanks MONO # 0.5 103/ul Normal 0.3-0.8 [facility] Comment on above: Performed By: #### C BC #### [facility] [address] [place] [address] Dr. Amber Fairbanks Monocytes/100 WBC (Bld) 13.5 % Critically high 1.7-12.0 [facility] Comment on above: Performed By: #### C BC #### [facility] [address] [place] [address] Dr. Amber Fairbanks NEUT # 2.3 103/ul Normal 1.4-6.5 [facility] Comment on above: Performed By: #### C BC #### [facility] [address] [place] [address] Dr. Amber Fairbanks Neutrophils/100 WBC (Bld) 58.7 % Normal 43.0-75.0 [facility] Comment on above: Performed By: #### C BC #### [facility] [address] [place] [address] Dr. Amber Fairbanks Platelet mean volume (Bld) [Entitic vol] 10.5 fL Normal 9.5-13.5 [facility] Comment on above: Performed By: #### C BC #### [facility] [address] [address] [address] Amber Fairbanks PLT 241 103/ul Normal 150-450 [facility] Comment on above: Performed By: #### C BC #### [facility] [address] [id number] Amber Fairbanks RBC 4.44 106/ul Normal 4.20-5.40 [facility] Comment on above: Performed By: #### C BC #### [facility] [address] [address] [address] Amber Fairbanks WBC 3.9 103/ul Critically low 4.0-11.0 [facility] Comment on above: Performed By: #### C BC #### [facility] [address] [place] [address] Dr. Amber Fairbanks CPKon 05-30-2022 CK [Catalytic activity/Vol] 178 U/L Normal 26-192 [facility] Comment on above: Performed By: #### C MP, CK #### [facility] [address] [address] [address] Amber Fairbanks Covid-19 PCR (CVDTB)on 05-14 SARS-CoV-2 (COVID-19) RNA MARIZOL+probe Ql (Unsp spec) Not detected Normal NOT DETECTED [facility] Comment on above: Result Comment: This test is not yet approved or cleared by the [place] FDA. When there are no FDA-approved or cleared tests available, and other criteria are met, FDA can make tests available under an emergency access mechanism called an Emergency Use Authorization (EUA). The EUA for this test is supported by the [place] of Health and Human Service's (HHS's) declaration [...] SARS-CoV-2. Performed By: #### C VDTBH #### [facility] [address] [place] [address] Dr. Amber Fairbanks INFLUENZA A AND B AGon 05-30 INFLUENZA A AG Negative Normal NEGATIVE SEE COMMENT [facility] Comment on above: Performed By: #### C VDAGA #### [facility] [address] [place] [address] Dr. Amber Fairbanks INFLUENZA B AG Negative Normal NEGATIVE SEE COMMENT [facility] Comment on above: Performed By: #### C VDAGA #### [facility] [address] [place] [address] Dr. Amber Fairbanks INTERNAL CONTROLS Within Normal Limits Normal Within Normal Limits [facility] Comment on above: Performed By: #### C VDAGA #### [facility] [address] [place] [address] Dr. Amber Fairbanks MONOon 05-30-2022 Monocytes (Bld) [#/Vol] Negative Normal NEGATIVE [facility] Comment on above: Performed By: #### C VDAGA #### [facility] [address] [place] [address] Dr. Amber Fairbanks PROF 14(COMP METB)on 022 Albumin [Mass/Vol] 3.7 g/dL Normal 3.4-5.0 [facility] Comment on above: Performed By: #### C VDAGA #### [facility] [address] [place] [address] Dr. Amber Fairbanks Albumin/Globulin [Mass ratio] 0.8 {ratio} Normal [facility] Comment on above: Performed By: #### C VDAGA #### [facility] [address] [place] [address] Dr. Amber Fairbanks ALP [Catalytic activity/Vol] 72 U/L Normal 46-116 [facility] Comment on above: Performed By: #### C VDAGA #### [facility] [address] [place] [address] Dr. Amber Fairbanks ALT [Catalytic activity/Vol] 20 U/L Normal 14-59 [facility] Comment on above: Performed By: #### C VDAGA #### [facility] [address] [address] [address] Amber Fairbanks Anion gap [Moles/Vol] 14.7 mmol/L Normal [facility] Comment on above: Performed By: #### C VDAGA #### [facility] [address] [address] [address] Amber Fairbanks AST [Catalytic activity/Vol] 26 U/L Normal 15-37 [facility] Comment on above: Performed By: #### C VDAGA #### [facility] [address] [address] [address] Amber Fairbanks Bilirubin [Mass/Vol] 0.5 mg/dL Normal 0.2-1.0 [facility] Comment on above: Performed By: #### C VDAGA #### [facility] [address] [address] [address] Amber Fairbanks Calcium [Mass/Vol] 8.8 mg/dL Normal 8.5-10.1 [facility] Comment on above: Performed By: #### C VDAGA #### [facility] [address] [address] [address] Amber Fairbanks Chloride [Moles/Vol] 101 mmol/L Normal 98-107 [facility] Comment on above: Performed By: #### C VDAGA #### [facility] [address] [address] [address] Amber Fairbanks CO2 [Moles/Vol] 24.9 mmol/L Normal 21.0-32.0 [facility] Comment on above: Performed By: #### C VDAGA #### [facility] [address] [address] [address] Amber Fairbanks Creatinine [Mass/Vol] 0.83 mg/dL Normal 0.55-1.02 [facility] Comment on above: Performed By: #### C VDAGA #### [facility] [address] [address] [address] Amber Fairbanks EGFR-AF KENYAN >60 Normal >=60 [facility] Comment on above: Performed By: #### C VDAGA #### [facility] [address] [address] [address] Amber Fairbanks EGFR-NON AF KENYAN >60 Normal >=60 [facility] Comment on above: Performed By: #### C VDAGA #### [facility] [address] [address] [address] Amber Fairbanks Globulin (S) [Mass/Vol] 4.4 g/dL Normal [facility] Comment on above: Performed By: #### C VDAGA #### [facility] [address] [address] [address] Amber Fairbanks Glucose [Mass/Vol] 88 mg/dL Normal 74-106 [facility] Comment on above: Performed By: #### C VDAGA #### [facility] [address] [place] [address] Dr. Amber Fairbanks Potassium [Moles/Vol] 3.6 mmol/L Normal 3.5-5.1 [facility] Comment on above: Performed By: #### C VDAGA #### [facility] [address] [address] [address] Amber Fairbanks Protein [Mass/Vol] 8.1 g/dL Normal 6.4-8.2 [facility] Comment on above: Performed By: #### C VDAGA #### [facility] [address] [place] [address] Dr. Amber Fairbanks Sodium [Moles/Vol] 137 mmol/L Normal 136-145 [facility] Comment on above: Performed By: #### C VDAGA #### [facility] [address] [address] [address] Amber Fairbanks Urea nitrogen [Mass/Vol] 11.0 mg/dL Normal 7.0-18.0 [facility] Comment on above: Performed By: #### C VDAGA #### [facility] [address] [address] [address] Amber Fairbanks Urea nitrogen/Creatinin e [Mass ratio] 13.3 mg/mg Normal [facility] Comment on above: Performed By: #### C VDAGA #### [facility] [address] [address] [address] Amber Fairbanks SED [facility] 2021 SED RATE 27 mm/hr Critically high <=[address] [facility] Comment on above: Performed By: #### S EDR #### [facility] [address] [address] [address] Amber Fairbanks US PORSHA DOP LEG [...] CAROLINA CAMPOS Date: 2022-05-30 10:21 Normal [facility]on 05-14 SARS-CoV-2 (COVID-19) RNA AMRIZOL+probe Ql (Unsp spec) Not detected Normal NOT DETECTED [facility] Comment on above: Result Comment: When diagnostic [...] for this test is supported by the [place] of Health and Human Service's declaration that [...] used). Performed By: #### C VDAGA #### [facility] [address] [address] [address] Amber Fairbanks ASYMPTOMATIC COVID-19 ANTIGE Non 04-23-2022 EUA Statement SEE BELOW Normal [facility] Comment on above: Result Comment: This [...] sooner. Performed By: #### C VDAGA #### [facility] [address] [place] [address] Dr. Amber Fairbanks SARS-CoV-2 (COVID-19) RNA MARIZOL+probe Ql (Unsp spec) Positive Critically abnormal NEGATIVE [facility] Comment on above: Result Comment: SARS -CoV-2 antigen present; does not rule out coinfection with other pathogens. Performed By: #### C VDAGA #### [facility] [address] [place] [address] Dr. Amber Fairbanks [facility]19 PCR [facility]on SARS-CoV-2 (COVID-19) RNA MARIZOL+probe Ql (Unsp spec) Detected Critically abnormal NOT DETECTED [facility] Comment on above: Result Comment: This test is not yet approved or cleared by the [place] FDA. When there are no FDA-approved or cleared tests available, and other criteria are met, FDA can make tests available under an emergency access mechanism called an Emergency Use Authorization (EUA). The EUA for this test is supported by the [place] of Health and Human Service's declaration that [...] used). Performed By: #### C VDTBH #### [facility] [address] [place] [address] [id number] [address] Amber Fairbanks Covid-19 PCR ([facility])on SARS-CoV-2 (COVID-19) RNA MARIZOL+probe Ql (Unsp spec) Not detected Normal NOT DETECTED [facility] Comment on above: Result Comment: When diagnostic [...] for this test is supported by the [employer] of Health and Human Service's declaration that [...] used). Performed By: #### C VDTBH #### [facility] [address] [place] [address] [address] Amber Fairbanks Provider Letteron 01-31-2022 Provider Letter January 31, 2022 MAGED ARCINIEGA [address] [place] [phone] MAGED ARCINIEGA 1985 Dear Maged Brenner , We have been trying to reach you with no success. It is important that you return our call regarding your referral from Dr. Rodríguez upon receiving this letter. Also, at the time of your call, please provide us with your current information. Thank you for your prompt attention to this matter. Sincerely, General Surgery [phone] Normal [facility] Vital Signs Date Time Vital Sign Value Performing Clinician Faci lity 11-30-2024 13:05-0500 Body mass index (BMI) [Ratio] 33.78 kg/m2 Jovany Holly DO Work Phone: [facility] 11-30-2024 13:05-0500 Body weight 119.35 kg Jovany Holly DO Work Phone: [facility] 11-30-2024 13:05-0500 Diastolic blood pressure 84 mm[Hg] Jovany Holly DO Work Phone: [facility] 11-30-2024 13:05-0500 Systolic blood pressure 122 mm[Hg] Jovany Holly DO Work Phone: [facility] 06-08-2024 14:19-0400 Body height 188 cm Murray Rodriguez NP Work Phone: [facility] 06-08-2024 14:19-0400 Body mass index (BMI) [Ratio] 35.44 kg/m2 Murray Rodriguez NP Work Phone: [facility] 06-08-2024 14:19-0400 Body weight 125.19 kg [...] flowsheet Jr. Meg Caldwell DO Work Phone: [facility] Start: 07-06-2024 End: 07-06-2024 Bamboo flowsheet Meg Christopher Steptejas DO Work Phone: [facility] Start: 07-06-2024 End: 07-06-2024 ambulatory JR., MEG Christopher STEPTEJAS Not Available Start: 07-06-2024 End: 07-06-2024 Office outpatient visit 25 minutes Genoveva White Steptejas DO Work Phone: [facility] Comment on above: Internal derangement of right knee (Primary Dx) Start: 06-12-2024 End: 06-12-2024 ambulatory MURRAY RODRIGUEZ Not Available Start: 06-08-2024 End: 06-08-2024 ambulatory MURRAY RODRIGUEZ Not Available Start: 06-08-2024 End: 06-08-2024 Bamboo flowsheet Murray Rodriguez WAREHOUSE FORKLIFT OPERATOR Work Phone: [facility] Start: 06-08-2024 End: 06-08-2024 Bamboo flowsheet Murray Rodriguez WAREHOUSE FORKLIFT OPERATOR Work Phone: [facility] Start: 06-08-2024 End: 06-08-2024 Office outpatient new 30 minutes Murray Rodriguez WAREHOUSE FORKLIFT OPERATOR Work Phone: [facility] Comment on above: Internal derangement of [...] examinati on knee 1/2 views Murray Rodriguez WAREHOUSE FORKLIFT OPERATOR Work Phone: Plan of Treatment Date Care Activity Detail Author Start: 03-09-2025 End: 03-09-2025 Patient encounter procedure 03/09/2025 8:30 AM EDT Office Visit [facility] [address] [place] [id number] Jovany Barrera, DO [address] [place] [address] [facility] Start: 12-28-2024 End: 12-28-2024 Patient encounter procedure 12/28/2024 10:40 AM EDT Office Visit [facility] [address] [place] [id number] Jovany Barrera, DO [address] [place] [address] [facility] Start: 11-30-2024 End: 11-30-2025 Anaerobic culture Anaerobic culture Microbiology Routine Bartholin's gland cyst Expected: 11/30/2024 (Approximate), Expires: 11/30/2025 [facility] Work Phone: Comment on above: Expected: 11/30/2024 (Approximate), Expires: 11/30/2025 Start: 11-30-2024 End: 11-30-2024 Patient encounter procedure 11/30/2024 1:00 PM EST Office Visit [facility] [address] [facility] [place] [address] Jovany Barrera DO [address] [place] [address] Arrived [facility] Comment on above: [...] and acellular pertussis vaccine, adsorbed Murray Rodriguez WAREHOUSE FORKLIFT OPERATOR Work Phone: [facility] 04-02-2010 tetanus toxoid, redu janine diphtheria toxoid, and acellular pertussis vaccine, adsorbed Murray Rodriguez WAREHOUSE FORKLIFT OPERATOR Work Phone: [facility] 08-19-2009 novel influenza-H1N1 -09, preservative-free, injectable Murray Rodriguez WAREHOUSE FORKLIFT OPERATOR Work Phone: [facility] 07-30-2007 influenza virus vacc ine, whole virus Murray Rodriguez WAREHOUSE FORKLIFT OPERATOR Work Phone: [facility] Payers Date Payer Category Payer [facility] [id number] 2022 Unknown BCBS BCBS [id number] [id number] 2022-Present [phone] [address] [place] [address] [id number] 2019 Unknown [id number] 1985 Unknown [id number] 2.16840.1.109157.3.579.2. 593 1985 Unknown [id number] 2.16840.1.111674.3.579.2. 593 1985 Unknown [id number] 2.16840.1.833092.3.579.2. 593 1985 Unknown [id number] 2.16840.1.859917.3.579.2. 593 1985 Unknown [id number] 2.16840.1.825931.3.579.2. 593 1985 Unknown [id number] 2.16840.1.168884.3.579.2. 593 1985 Unknown [id number] 2.16840.1.275745.3.579.2. 593 1985 Unknown [id number] 2.16.840.1.126773.3.579.2. 1259 1985 Unknown [id number] 2.16840.1.265505.3.579.2. 1259 1985 Unknown [id number] 2.16840.1.110419.3.579.2. 1259 1985 Unknown [id number] 2.16.840.1.194404.3.579.2. 1258 1985 Unknown [id number] 2.16.840.1.586845.3.579.2. 1258 1985 Unknown [id number] 2.16.840.1.119061.3.579.2. 1258 1985 Unknown [id number] 2.16.840.1.413781.3.579.2. 1258 1985 Unknown [id number] 2.16.840.1.446540.3.579.2. 1258 1985 Unknown [id number] 2.16.840.1.070737.3.579.2. 1258 1985 Unknown [id number] 2.16.840.1.383917.3.579.2. 1258 1985 Unknown [id number] 2.16.840.1.641654.3.579.2. 1258 1985 Unknown [id number] 2.16.840.1.537278.3.579.2. 1258 1985 Unknown [id number] 2.16.840.1.836993.3.579.2. 9 1959 Unknown [id number] Social History Date Type Detail Facility Start: 01-17-2024 Tobacco smoking stat [facility] Never smoked tobacco [facility] Start: [...] (dysfunctional uterine bleeding) PTSD (post-traumatic stress disorder) ([facility] HISTORY PAST MEDICAL HISTORY SOCIAL HISTORY Past Medical History: Diagnosis Date DUB (dysfunctional uterine bleeding) PTSD (post-traumatic stress disorder) ([facility]) Social History Tobacco Use Smoking status: Never [...] nursing note reviewed. Exam conducted with a recreational aide present. Vitals: Estimated body mass index is [...] (dysfunctional uterine bleeding) PTSD (post-traumatic stress disorder) ([facility]) PAST SURGICAL HISTORY: Past Surgical History: Procedure [...] develop for requiring urgent evaluation. Murray Rodriguez APRN-RADIATION THERAPY TECHNICIAN documented in this encounter [facility] Healthcare Evaluation note Note Date & Type Note Facility Evaluation note Diagnosis Internal derangement of right knee- Primary Right knee pain, unspecified chronicity documented in this encounter [facility] Healthcare Evaluation note Note Date & Type [...] knee right wo IV contrast Murray Rodriguez, [employer]AREHOUSE FORKLIFT OPERATOR [address] [place] [address] [facility] [address] [facility] [address] [place] [address] Referral ID Status Reason Start Date Expiration Date V isits Requested Visits Authorized [id number] Pending Review 06/08/2024 12/05/2024 1 1 Additional Source Comments INFORMATION SOURCE (unrecogn ized section and content) DATE CREATED AUTHOR 02/02/2022 [facility] DATE CREATED AUTHOR AUTHOR'S ORGANIZ ATION 02/10/2023 [facility] DATE CREATED AUTHOR AUTHOR'S ORGANIZ ATION 12/01/2024 [facility] EPIC Reason for Visit (unrecogniz ed section and content) Reason Comments Pain Reason Comments Pain Reason Comments [facility] Care Teams (unrecognized sec tion and content) Fuselage Framer Relationship Specialty Start Date End Date Dano Rodríguez MD [address] [place] [address] PCP - General Family Medicine 01/06/24 Fuselage Framer Relationship Specialty Start Date End Date Dano Rodríguez MD [address] [place] [address] PCP - General Family Medicine 01/06/24 Fuselage Framer Relationship Specialty Start Date End Date Dano Rodríguez MD [address] [place] [address] PCP - General Family Medicine 01/06/24 Fuselage Framer Relationship Specialty Start Date End Date Dano Rodríguez MD [address] [place] [phone] - General Family Medicine 01/06/24 Fuselage Framer Relationship Specialty Start Date End Date Dano Rodríguez MD [address] [place] [phone] - General Family Medicine 01/06/24 FOR [...] BE BASED ON THE PRIMARY CLINICAL RECORDS. [facility] [employer] [facility]. provides no warranty or guarantee of the accuracy or completeness of information in this document.
== END 2025-01-27 07:56 | disposition home or self-care (01) ==
LOC: US 07:56
PROVIDERS: PCP Family Medicine; Visit Provider Family Medicine
DX: E03.9 Hypothyroidism, unspecified (principal); R59.1 Generalized enlarged lymph nodes; E04.1 Nontoxic single thyroid nodule; Z12.31 Encounter for screening mammogram for malignant neoplasm of breast; Z80.1 Family history of malignant neoplasm of trachea, bronchus and lung; Z80.0 Family history of malignant neoplasm of digestive organs
CPT/HCPCS: 76536; 77063; 77067

== ENCOUNTER 2025-01-27 07:56 | Outpatient (OUT) | payer BC, SELFPAY ==
--- NOTE | 2025-01-27 | MM_ITS ---
Patient Name: MAGED BURKS MR#: [id number] : 1985 Exam Date: 01/27/2025 Ordering Doctor: DR Nestor Barrera . RADIOLOGY REPORT PROCEDURE: MM TOMOSYNTHESIS SCREENING BI COMPARISON: None. INDICATIONS: WELL ADULT Z00.00 Calculator Name NCI Breast Cancer Risk Assessment Tool 5 Year Breast Cancer Risk 1.00% Lifetime Breast Cancer Risk 15.20% Personal Breast Cancer No Personal Ovarian Cancer No Treatments None Family Cancers Father with lung cancer at age 64; Grandfather-maternal with colon cancer at age 53; Grandfather-paternal with colon cancer at age 72. LOCATION: [facility] BREAST COMPOSITION: The breasts are heterogeneously dense,which may obscure small masses. FINDINGS: DIAGNOSTIC CATEGORY 1--NEGATIVE. LEFT BREAST: No significant suspicious finding. RIGHT BREAST: No significant suspicious finding. RECOMMENDATIONS: ROUTINE MAMMOGRAM AND CLINICAL EVALUATION IN 12 MONTHS. PLEASE NOTE: A NORMAL MAMMOGRAM DOES NOT EXCLUDE THE POSSIBILITY OF BREAST CANCER. A CLINICALLY SUSPICIOUS PALPABLE LUMP SHOULD BE BIOPSIED. Dictated by: Shahab Hamilton DO on 01/27/2025 at 14:15 Approved by: Shahab Hamilton DO on 01/27/2025 at 14:17
--- OUTSIDE RECORDS SUMMARY | 2025-01-27 08:11 | XMS_ITS | CCD ---
Author Organization [facility] Providers Care Fire Support Man Name Role Phone SEB WALLER Admitting Unavailable [...] ble Dano Rodríguez MD Primary Care Provider [phone] JOVANY BARRERA Attending Unavailable JOVANY BARRERA Attending [...] Comment: MRI R T knee w/o at [facility]. Orbits if needed. Eval for medial meniscus [...] Impression: No acute bony process, right knee [facility] Radiology Study observation (narrative) [facility] XR Knee - right 1 or 2 Views Ordered By: Jr. Caldwell on 06-08-2024 [facility] [employer] e Work Phone: SYMPTOMATIC COVID-19 ANTIGEN on 02-07-2023 EUA Statement SEE BELOW Normal [facility] Comment on above: Result Comment: This test [...] sooner. Performed By: #### C VDAGS #### [facility] [address] [place] [address] Dr. Amber Fairbanks SARS-CoV-2 (COVID-19) RNA MARIZOL+probe Ql (Unsp spec) Positive Abnormal NEGATIVE [facility] Comment on above: Performed By: #### C VDAGS #### [facility] [address] [place] [address] Dr. Amber Fairbanks Covid-19 PCR (CVDTB)on 09-13 SARS-CoV-2 (COVID-19) RNA MARIZOL+probe Ql (Unsp spec) Not detected Normal NOT DETECTED [facility] Comment on above: Result Comment: When diagnostic [...] for this test is supported by the [place] of Health and Human Service's declaration that [...] used). Performed By: #### C VDTBH #### [facility] [address] [place] [address] Dr. Amber Fairbanks GROUP A STREP CULTUREon 09-13 S. pyogenes Ag Ql (Unsp spec) Culture Observations: NEGATIVE FOR GROUP A STREPTOCOCCUS. Normal [facility] Comment on above: Performed By: #### C VDAGA #### [facility] [address] [place] [address] Dr. Amber Fairbanks INFLUENZA A AND B AGon 09-27 INFLUENZA A AG Negative Normal NEGATIVE SEE COMMENT [facility] Comment on above: Performed By: #### I NFLUAB #### [facility] [address] [place] [address] Dr. Amber Fairbanks INFLUENZA B AG Negative Normal NEGATIVE SEE COMMENT [facility] Comment on above: Performed By: #### I NFLUAB #### [facility] [address] [place] [address] Dr. Amber Fairbanks INTERNAL CONTROLS Within Normal Limits Normal Within Normal Limits [facility] Comment on above: Performed By: #### I NFLUAB #### [facility] [address] [place] [address] Dr. Amber Fairbanks STREPT SCREENon 09-27-2022 STREP SCREEN A Negative Normal NEGATIVE [facility] Comment on above: Performed By: #### C VDAGA #### [facility] [address] [place] [address] Dr. Amber Fairbanks CBC AUTO DIFFon 05-30-2022 BASO # 0.0 103/ul Normal 0.0-0.1 [facility] Comment on above: Performed By: #### C BC #### [facility] [address] [place] [address] Dr. Amber Fairbanks Basophils/100 WBC (Bld) 0.3 % Normal 0.2-2.0 [facility] Comment on above: Performed By: #### C BC #### [facility] [address] [place] [address] Dr. Amber Fairbanks EO # 0.0 103/ul Normal 0.0-0.7 [facility] Comment on above: Performed By: #### C BC #### [facility] [address] [place] [address] Dr. Amber Fairbanks Eosinophils/100 WBC (Bld) 0.3 % Critically low 0.9-7.0 [facility] Comment on above: Performed By: #### C BC #### [facility] [address] [place] [address] Dr. Amber Fairbanks Erythrocyte distribution width (RBC) [Ratio] 12.8 % Normal 11.0-15.0 [facility] Comment on above: Performed By: #### C BC #### [facility] [address] [place] [address] Dr. Amber Fairbanks Hematocrit (Bld) [Volume fraction] 38.5 % Normal 36.0-48.0 [facility] Comment on above: Performed By: #### C BC #### [facility] [address] [place] [address] Dr. Amber Fairbanks Hemoglobin (Bld) [Mass/Vol] 12.9 g/dL Normal 12.0-16.0 [facility] Comment on above: Performed By: #### C BC #### [facility] [address] [place] [address] Dr. Amber Fairbanks IG # 0.00 10e3/ul Normal 0.00-0.03 [facility] Comment on above: Performed By: #### C BC #### [facility] [address] [place] [address] Dr. Amber Fairbanks IG % 0.0 % Normal 0.0-0.5 [facility] Comment on above: Performed By: #### C BC #### [facility] [address] [place] [address] Dr. Amber Fairbanks LYMPH # 1.1 103/ul Critically low 1.2-3.8 [facility] Comment on above: Performed By: #### C BC #### [facility] [address] [place] [address] Dr. Amber Fairbanks Lymphocytes/100 WBC (Bld) 27.2 % Normal 20.5-60.0 [facility] Comment on above: Performed By: #### C BC #### [facility] [address] [place] [address] Dr. Amber Fairbanks MANUAL DIFF REQ NO Normal [facility] Comment on above: Performed By: #### C BC #### [facility] [address] [place] [address] Dr. Amber Fairbanks MCH (RBC) [Entitic mass] 29.1 pg Normal 26.7-34.0 [facility] Comment on above: Performed By: #### C BC #### [facility] [address] [place] [address] Dr. Amber Fairbanks MCHC (RBC) [Mass/Vol] 33.5 g/dL Normal 29.9-35.2 [facility] Comment on above: Performed By: #### C BC #### [facility] [address] [place] [address] Dr. Amber Fairbanks MCV (RBC) [Entitic vol] 86.7 fL Normal 81.0-99.0 [facility] Comment on above: Performed By: #### C BC #### [facility] [address] [place] [address] Dr. Amber Fairbanks MONO # 0.5 103/ul Normal 0.3-0.8 [facility] Comment on above: Performed By: #### C BC #### [facility] [address] [place] [address] Dr. Amber Fairbanks Monocytes/100 WBC (Bld) 13.5 % Critically high 1.7-12.0 [facility] Comment on above: Performed By: #### C BC #### [facility] [address] [place] [address] Dr. Amber Fairbanks NEUT # 2.3 103/ul Normal 1.4-6.5 [facility] Comment on above: Performed By: #### C BC #### [facility] [address] [place] [address] Dr. Amber Fairbanks Neutrophils/100 WBC (Bld) 58.7 % Normal 43.0-75.0 [facility] Comment on above: Performed By: #### C BC #### [facility] [address] [place] [address] Dr. Amber Fairbanks Platelet mean volume (Bld) [Entitic vol] 10.5 fL Normal 9.5-13.5 [facility] Comment on above: Performed By: #### C BC #### [facility] [address] [address] [address] Amber Fairbanks PLT 241 103/ul Normal 150-450 [facility] Comment on above: Performed By: #### C BC #### [facility] [id number] Amber Fairbanks RBC 4.44 106/ul Normal 4.20-5.40 [facility] Comment on above: Performed By: #### C BC #### [facility] [address] [address] [address] Amber Fairbanks WBC 3.9 103/ul Critically low 4.0-11.0 [facility] Comment on above: Performed By: #### C BC #### [facility] [address] [place] [address] Dr. Amber Fairbanks CPKon 05-30-2022 CK [Catalytic activity/Vol] 178 U/L Normal 26-192 [facility] Comment on above: Performed By: #### C MP, CK #### [facility] [address] [address] [address] Amber Fairbanks Covid-19 PCR (CVDTB)on 05-14 SARS-CoV-2 (COVID-19) RNA MARIZOL+probe Ql (Unsp spec) Not detected Normal NOT DETECTED [facility] Comment on above: Result Comment: This test is not yet approved or cleared by the [place] FDA. When there are no FDA-approved or cleared tests available, and other criteria are met, FDA can make tests available under an emergency access mechanism called an Emergency Use Authorization (EUA). The EUA for this test is supported by the [place] of Health and Human Service's (HHS's) declaration [...] SARS-CoV-2. Performed By: #### C VDTBH #### [facility] [address] [place] [address] Dr. Amber Fairbanks INFLUENZA A AND B AGon 05-30 INFLUENZA A AG Negative Normal NEGATIVE SEE COMMENT [facility] Comment on above: Performed By: #### C VDAGA #### [facility] [address] [place] [address] Dr. Amber Fairbanks INFLUENZA B AG Negative Normal NEGATIVE SEE COMMENT [facility] Comment on above: Performed By: #### C VDAGA #### [facility] [address] [place] [address] Dr. Amber Fairbanks INTERNAL CONTROLS Within Normal Limits Normal Within Normal Limits [facility] Comment on above: Performed By: #### C VDAGA #### [facility] [address] [place] [address] Dr. Amber Fairbanks MONOon 05-30-2022 Monocytes (Bld) [#/Vol] Negative Normal NEGATIVE [facility] Comment on above: Performed By: #### C VDAGA #### [facility] [address] [place] [address] Dr. Amber Fairbanks PROF 14(COMP METB)on 022 Albumin [Mass/Vol] 3.7 g/dL Normal 3.4-5.0 [facility] Comment on above: Performed By: #### C VDAGA #### [facility] [address] [place] [address] Dr. Amber Fairbanks Albumin/Globulin [Mass ratio] 0.8 {ratio} Normal [facility] Comment on above: Performed By: #### C VDAGA #### [facility] [address] [place] [address] Dr. Amber Fairbanks ALP [Catalytic activity/Vol] 72 U/L Normal 46-116 [facility] Comment on above: Performed By: #### C VDAGA #### [facility] [address] [place] [address] Dr. Amber Fairbanks ALT [Catalytic activity/Vol] 20 U/L Normal 14-59 [facility] Comment on above: Performed By: #### C VDAGA #### [facility] [address] [address] [address] Amber Fairbanks Anion gap [Moles/Vol] 14.7 mmol/L Normal [facility] Comment on above: Performed By: #### C VDAGA #### [facility] [address] [address] [address] Amber Fairbanks AST [Catalytic activity/Vol] 26 U/L Normal 15-37 [facility] Comment on above: Performed By: #### C VDAGA #### [facility] [address] [address] [address] Amber Fairbanks Bilirubin [Mass/Vol] 0.5 mg/dL Normal 0.2-1.0 [facility] Comment on above: Performed By: #### C VDAGA #### [facility] [address] [address] [address] Amber Fairbanks Calcium [Mass/Vol] 8.8 mg/dL Normal 8.5-10.1 [facility] Comment on above: Performed By: #### C VDAGA #### [facility] [address] [address] [address] Amber Fairbanks Chloride [Moles/Vol] 101 mmol/L Normal 98-107 [facility] Comment on above: Performed By: #### C VDAGA #### [facility] [address] [address] [address] Amber Fairbanks CO2 [Moles/Vol] 24.9 mmol/L Normal 21.0-32.0 [facility] Comment on above: Performed By: #### C VDAGA #### [facility] [address] [address] [address] Amber Fairbanks Creatinine [Mass/Vol] 0.83 mg/dL Normal 0.55-1.02 [facility] Comment on above: Performed By: #### C VDAGA #### [facility] [address] [address] [address] Amber Fairbanks EGFR-AF SLOVAK >60 Normal >=60 [facility] Comment on above: Performed By: #### C VDAGA #### [facility] [address] [address] [address] Amber Fairbanks EGFR-NON AF SLOVAK >60 Normal >=60 [facility] Comment on above: Performed By: #### C VDAGA #### [facility] [address] [address] [address] Amber Fairbanks Globulin (S) [Mass/Vol] 4.4 g/dL Normal [facility] Comment on above: Performed By: #### C VDAGA #### [facility] [address] [address] [address] Amber Fairbanks Glucose [Mass/Vol] 88 mg/dL Normal 74-106 [facility] Comment on above: Performed By: #### C VDAGA #### [facility] [address] [place] [address] Dr. Amber Fairbanks Potassium [Moles/Vol] 3.6 mmol/L Normal 3.5-5.1 [facility] Comment on above: Performed By: #### C VDAGA #### [facility] [address] [address] [address] Amber Fairbanks Protein [Mass/Vol] 8.1 g/dL Normal 6.4-8.2 [facility] Comment on above: Performed By: #### C VDAGA #### [facility] [address] [place] [address] Dr. Amber Fairbanks Sodium [Moles/Vol] 137 mmol/L Normal 136-145 [facility] Comment on above: Performed By: #### C VDAGA #### [facility] [address] [address] [address] Amber Fairbanks Urea nitrogen [Mass/Vol] 11.0 mg/dL Normal 7.0-18.0 [facility] Comment on above: Performed By: #### C VDAGA #### [facility] [address] [address] [address] Amber Fairbanks Urea nitrogen/Creatinin e [Mass ratio] 13.3 mg/mg Normal [facility] Comment on above: Performed By: #### C VDAGA #### [facility] [address] [address] [address] Amber Fairbanks [facility] SED [facility]ATE 27 mm/hr Critically high <=20 [facility] Comment on above: Performed By: #### S EDR #### [facility] [address] [address] [address] Amber Fairbanks US PORSHA DOP LEG [...] [place] CAMPOS Date: 2022-05-30 10:21 Normal [facility]14 SARS-CoV-2 (COVID-19) RNA MARIZOL+probe Ql (Unsp spec) Not detected Normal NOT DETECTED [facility] Comment on above: Result Comment: When diagnostic [...] for this test is supported by the [place] of Health and Human Service's declaration that [...] used). Performed By: #### C VDAGA #### [facility] [address] [address] [address] Amber Fairbanks ASYMPTOMATIC COVID-19 ANTIGE Non 04-23-2022 EUA Statement SEE BELOW Normal [facility] Comment on above: Result Comment: This test [...] sooner. Performed By: #### C VDAGA #### [facility] [address] [place] [address] Dr. Amber Fairbanks SARS-CoV-2 (COVID-19) RNA MARIZOL+probe Ql (Unsp spec) Positive Critically abnormal NEGATIVE [facility] Comment on above: Result Comment: SARS -CoV-2 antigen present; does not rule out coinfection with other pathogens. Performed By: #### C VDAGA #### [facility] [address] [place] [address] Dr. Amber Fairbanks [facility]on SARS-CoV-2 (COVID-19) RNA MARIZOL+probe Ql (Unsp spec) Detected Critically abnormal NOT DETECTED [facility] Comment on above: Result Comment: This test is not yet approved or cleared by the [place] FDA. When there are no FDA-approved or cleared tests available, and other criteria are met, FDA can make tests available under an emergency access mechanism called an Emergency Use Authorization (EUA). The EUA for this test is supported by the [place] of Health and Human Service's declaration that [...] used). Performed By: #### C VDTBH #### [facility] [address] [place] [address] [address] Amber Fairbanks Covid-19 PCR ([facility])on SARS-CoV-2 (COVID-19) RNA MARIZOL+probe Ql (Unsp spec) Not detected Normal NOT DETECTED [facility] Comment on above: Result Comment: When diagnostic [...] for this test is supported by the [place] of Health and Human Service's declaration that [...] used). Performed By: #### C VDTBH #### [facility] [address] [place] [address] [address] Amber Fairbanks Provider Letteron 01-31-2022 Provider Letter January 31, 2022 MAGED ARCINIEGA [address] [place] [phone] MAGED ARCINIEGA 1985 Dear Maged Brenner , We have been trying to reach you with no success. It is important that you return our call regarding your referral from Dr. Rodríguez upon receiving this letter. Also, at the time of your call, please provide us with your current information. Thank you for your prompt attention to this matter. Sincerely, General Surgery [phone] Normal [facility] Vital Signs Date Time Vital Sign Value Performing Clinician Faci lity 11-30-2024 13:05-0500 Body mass index (BMI) [Ratio] 33.78 kg/m2 Jovany Holly DO Work Phone: [facility] 11-30-2024 13:05-0500 Body weight 119.35 kg Jovany Holly DO Work Phone: [facility] 11-30-2024 13:05-0500 Diastolic blood pressure 84 mm[Hg] Jovany Holly DO Work Phone: [facility] 11-30-2024 13:05-0500 Systolic blood pressure 122 mm[Hg] Jovany Holly DO Work Phone: [facility] 06-08-2024 14:19-0400 Body height 188 cm Murray Rodriguez NP Work Phone: [facility] 06-08-2024 14:19-0400 Body mass index (BMI) [Ratio] 35.44 kg/m2 Murray Rodriguez NP Work Phone: [facility] 06-08-2024 14:19-0400 Body weight 125.19 kg Murray Rodriguez NP Work Phone: [facility] Healthcare Encounters Encounter Date Encounter [...] Start: 07-06-2024 End: 07-06-2024 Bamboo flowsheet Jr. Mge Caldwell DO Work Phone: [facility] Start: 07-06-2024 End: 07-06-2024 Bamboo flowsheet Meg Christopher Steptejas DO Work Phone: [facility] Start: 07-06-2024 End: 07-06-2024 ambulatory JR., MEG Christopher STEPTEJAS Not Available Start: 07-06-2024 End: 07-06-2024 Office outpatient visit 25 minutes Genoveva White Steptejas DO Work Phone: [facility] Comment on above: Internal derangement of right knee (Primary Dx) Start: 06-12-2024 End: 06-12-2024 ambulatory MURRAY RODRIGUEZ Not Available Start: 06-08-2024 End: 06-08-2024 ambulatory MURRAY RODRIGUEZ Not Available Start: 06-08-2024 End: 06-08-2024 Bamboo flowsheet Murray Rodriguez LIBRARY SERVICES COORDINATOR Work Phone: [facility] Start: 06-08-2024 End: 06-08-2024 Bamboo flowsheet Murray Rodriguez LIBRARY SERVICES COORDINATOR Work Phone: [facility] Start: 06-08-2024 End: 06-08-2024 Office outpatient new 30 minutes Murray Rodriguez LIBRARY SERVICES COORDINATOR Work Phone: [facility] Comment on above: Internal derangement [...] examinati on knee 1/2 views Murray Rodriguez LIBRARY SERVICES COORDINATOR Work Phone: Plan of Treatment Date Care Activity Detail Author Start: 03-09-2025 End: 03-09-2025 Patient encounter procedure 03/09/2025 8:30 AM EDT Office Visit [facility] [address] [place] [id number] Jovany Barrera, DO [address] [place] [address] [facility] Start: 12-28-2024 End: 12-28-2024 Patient encounter procedure 12/28/2024 10:40 AM EDT Office Visit [facility] [address] [place] [id number] Jovany Barrera, DO [address] [place] [address] [facility] Start: 11-30-2024 End: 11-30-2025 Anaerobic culture Anaerobic culture Microbiology Routine Bartholin's gland cyst Expected: 11/30/2024 (Approximate), Expires: 11/30/2025 [facility] Work Phone: Comment on above: Expected: 11/30/2024 (Approximate), Expires: 11/30/2025 Start: 11-30-2024 End: 11-30-2024 Patient encounter procedure 11/30/2024 1:00 PM EST Office Visit [facility] [address] [place] [address] Jovany Barrera DO [address] [place] [address] Arrived [facility] Comment on above: Arrived Start: 06-08-2024 End: 06-08-2025 MR Knee - right WO contrast MR knee right wo IV contrast Imaging Routine Internal derangement of right knee Expected: 06/08/2024 (Approximate), Expires: 06/08/2025 [facility] Work Phone: Comment on above: Expected: 06/08/2024 (Approximate), Expires: 06/08/2025 Aerobic culture Aerobic culture Microbiology Routine Bartholin's gland cyst Ordered: 11/30/2024 [facility] Comment on above: Ordered: 11/30/2024 Immunizations Immunization Date Immunization Notes Care Provider Jeimy peacock 05-04-2020 tetanus toxoid, redu janine diphtheria toxoid, and acellular pertussis vaccine, adsorbed Murray Rodriguez LIBRARY SERVICES COORDINATOR Work Phone: [facility] 04-02-2010 tetanus toxoid, redu janine diphtheria toxoid, and acellular pertussis vaccine, adsorbed Murray Rodriguez LIBRARY SERVICES COORDINATOR Work Phone: [facility] 08-19-2009 novel influenza-H1N1 -09, preservative-free, injectable Murray Rodriguez LIBRARY SERVICES COORDINATOR Work Phone: [facility] 07-30-2007 influenza virus vacc ine, whole virus Murray Rodriguez LIBRARY SERVICES COORDINATOR Work Phone: [facility] Healthcare Payers Date Payer Category Payer [facility] [id number] 2022 Unknown BCBS BCBS xxxxxx [id number] 2022-Present [phone] [address] [place] [address] [id number] 2019 Unknown [id number] 1985 Unknown [id number] 2.16840.1.144105.3.579.2. 593 1985 Unknown [id number] 2.16840.1.082374.3.579.2. 593 1985 Unknown [id number] 2.16840.1.233631.3.579.2. 593 1985 Unknown [id number] 2.16840.1.989577.3.579.2. 593 1985 Unknown [id number] 2.16840.1.709995.3.579.2. 593 1985 Unknown [id number] 2.16840.1.310233.3.579.2. 593 1985 Unknown [id number] 2.16840.1.212258.3.579.2. 593 1985 Unknown [id number] 2.16.840.1.245276.3.579.2. 1259 1985 Unknown [id number] 2.16840.1.361462.3.579.2. 1259 1985 Unknown [id number] 2.16840.1.963966.3.579.2. 1259 1985 Unknown [id number] 2.16.840.1.530576.3.579.2. 1258 1985 Unknown [id number] 2.16.840.1.820676.3.579.2. 1258 1985 Unknown [id number] 2.16.840.1.426604.3.579.2. 1258 1985 Unknown [id number] 2.16.840.1.171616.3.579.2. 1258 1985 Unknown [id number] 2.16.840.1.130397.3.579.2. 1258 1985 Unknown [id number] 2.16.840.1.688523.3.579.2. 1258 1985 Unknown [id number] 2.16.840.1.016374.3.579.2. 1258 1985 Unknown [id number] 2.16.840.1.948008.3.579.2. 1258 1985 Unknown [id number] 2.16.840.1.200028.3.579.2. 1258 1985 Unknown [id number] 2.16.840.1.599567.3.579.2. 9 1959 Unknown [id number] Social History Date Type Detail Facility Start: 01-17-2024 Tobacco smoking stat [facility] Never smoked tobacco [facility] Start: 01-17-2024 [...] (dysfunctional uterine bleeding) PTSD (post-traumatic stress disorder) ([facility] HISTORY PAST MEDICAL HISTORY SOCIAL HISTORY Past Medical History: Diagnosis Date DUB (dysfunctional uterine bleeding) PTSD (post-traumatic stress disorder) ([facility]) Social History Tobacco Use Smoking status: [...] nursing note reviewed. Exam conducted with a rn advanced present. Vitals: Estimated body mass index is [...] (dysfunctional uterine bleeding) PTSD (post-traumatic stress disorder) [facility] [facility]PITAL) PAST SURGICAL HISTORY: Past Surgical History: [...] develop for requiring urgent evaluation. Murray Rodriguez APRN-FILTER CHANGER documented in this encounter [facility] Healthcare Evaluation note Note Date & Type Note Facility Evaluation note Diagnosis Internal derangement of right knee- Primary Right knee pain, unspecified chronicity documented in this encounter [facility] Healthcare Evaluation note Note Date & [...] knee right wo IV contrast Murray Rodriguez, LIBRARY SERVICES COORDINATOR [address] [place] [address] [facility] F[facility] Mr [address] [facility] [address] [place] [address] Referral ID Status Reason Start Date Expiration Date V isits Requested Visits Authorized [id number] Pending Review 06/08/2024 12/05/2024 1 1 Additional Source Comments INFORMATION SOURCE (unrecogn ized section and content) DATE CREATED AUTHOR 02/02/2022 [facility] DATE CREATED AUTHOR AUTHOR'S ORGANIZ ATION 02/10/2023 [facility] DATE CREATED AUTHOR AUTHOR'S ORGANIZ ATION 12/01/[address] [facility] EPIC Reason for Visit (unrecogniz ed section and content) Reason Comments Pain Reason Comments Pain Reason Comments Bartholin's Cyst Care Teams (unrecognized sec tion and content) Fire Support Man Relationship Specialty Start Date End Date Dano Rodríguez MD [address] [place] [address] PCP - General Family Medicine 01/06/24 Fire Support Man Relationship Specialty Start Date End Date Dano Rodríguez MD [address] [place] [address] PCP - General Family Medicine 01/06/24 Fire Support Man Relationship Specialty Start Date End Date Dano Rodríguez MD [address] [place] [address] PCP - General Family Medicine 01/06/24 Fire Support Man Relationship Specialty Start Date End Date Dano Rodríguez MD [address] [place] [address] [phone] PCP - General Family Medicine 01/06/24 Fire Support Man Relationship Specialty Start Date End Date Dano Rodríguez MD [address] [place] [address] [phone] PCP - General Family Medicine 01/06/24 FOR [...] BE BASED ON THE PRIMARY CLINICAL RECORDS. [facility] [employer] [facility]. provides no warranty or guarantee of the accuracy or completeness of information in this document.
== END 2025-01-27 07:57 | disposition home or self-care (01) ==
LOC: MAMMO 07:57
PROVIDERS: PCP Family Medicine; Visit Provider Obstetrics & Gynecology
DX: Z12.31 Encounter for screening mammogram for malignant neoplasm of breast (principal); Z80.1 Family history of malignant neoplasm of trachea, bronchus and lung; Z80.0 Family history of malignant neoplasm of digestive organs
CPT/HCPCS: 77063; 77067

== ENCOUNTER 2025-02-22 17:19 | Outpatient (OUT) | payer BC, SELFPAY ==
--- NOTE | 2025-02-22 | XR_ITS ---
[facility] [place] [id number] Patient Name: MAGED BURKS MRN: [id number] date: 1985 Sex: F Assigned Patient Location: [facility] Current Patient Location: [facility] Accession/Order Number: [id number] Exam Date: 02/22/2025 22:39 Report Date: 02/22/2025 22:40 At the request of: DANO BECKFORD MD Procedure: XR shoulder RT min 2V 3 views right shoulder plain film HISTORY: Right shoulder injury. Continued pain. COMPARISON: None ACUTE FINDINGS: None DEGENERATIVE CHANGE: Unremarkable SOFT TISSUE FINDINGS: Focal calcification of the rotator cuff consistent with calcific tendinopathy. JOINT EFFUSION: None POSTOP CHANGES: None BONY MINERALIZATION: Adequate XR/XR shoulder RT min 2V IMPRESSION: No acute displaced fracture. Calcific rotator cuff tendinopathy. Impression dictated by: Jeremy Bassett M.D. 02/22/2025 10:40 PM Dictation Location: [facility] Electronically authenticated by: [id number] Y Date: 02/22/2025 22:40
--- NOTE | 2025-02-22 | XR_ITS ---
[facility] [place] [id number] Patient Name: MAGED BURKS MRN: [id number] date: 1985 Sex: F Assigned Patient Location: [facility] Current Patient Location: [facility] Accession/Order Number: [id number] Exam Date: 02/22/2025 22:37 Report Date: 02/22/2025 22:39 At the request of: DANO BECKFORD MD Procedure: XR cervical spine 2-3V 3 viewscervical spine HISTORY: Right neck pain. COMPARISON: None POSTOPERATIVE CHANGES: None BONY ALIGNMENT: Adequate HYPERMOBILITY::No bending imaging. LISTHESIS:None FRACTURE: None DISC DEGENERATION: C5-6 mild disc space narrowing with endplate spurring. FACETS: Unremarkable FORAMEN: Unremarkable. DENS: Intact CRANIOCERVICAL JUNCTION: Unremarkable SOFT TISSUES: Unremarkable XR/XR cervical spine 2-3V IMPRESSION: No acute findings. Straightening secondary patient positioning or spasm. Mild C5-6 degeneration. Impression dictated by: Jeremy Bassett M.D. 02/22/2025 10:39 PM Dictation Location: [employer] Electronically authenticated by: [id number] Y Date: 02/22/2025 22:39
== END 2025-02-22 17:20 | disposition home or self-care (01) ==
LOC: RAD 17:20
PROVIDERS: PCP Family Medicine; Visit Provider Family Medicine
DX: M25.511 Pain in right shoulder (principal); M54.2 Cervicalgia; M75.31 Calcific tendinitis of right shoulder
CPT/HCPCS: 72040; 73030

== ENCOUNTER 2025-03-09 12:20 | Outpatient (REF) | payer BC, SELFPAY ==
--- OUTSIDE RECORDS SUMMARY | 2025-02-19 05:30 | XMS_ITS ---
Author Organization The [facility] in [place] Address [address] [place] [address] Care Team Providers Care Radiology Transcriptionist Name Role Phone Regino Rodríguez Primary Care Provider REASON FOR VISIT Presents to office alone for c/o sore throat x2 weeks. Seen Dr. Willson last week and told her that her throat was fine Medications Medication SIG (Take, Route, Fr equency, Duration) Notes Start Date End Date Status Diclofenac Sodium 75 MG 1 tablet as need ed Orally Twice a day PRN 01/09/2024 Active Imitrex 100 MG 1 tablet at least 2 hours between doses as needed Orally Twice a day for 10 PRN 01/09/2024 Active Social History Tobacco Use: Social History Observation Description Date Details (start date - stop date) Never Smoker NA - NA Tobacco Use/Smoking Question Answer Notes Patient is a nonsmoker AUDIT-C (Standard) Question Answer Notes Did you have a drink containing alcohol in the p ast year? No Points 0 Interpretation Negative Problems Problem Type SNOMED Code ICD Code Onset Dates Problem Status W/U Status Risk Notes Problem Allergic rhinitis (J30.9) Active confirmed Vital Signs Weight 264 lbs 02/19/2025 Height 73 in 02/19/2025 Blood pressure systolic 130 mm Hg 02/20/20 25 Blood pressure diastolic 80 mm Hg 025 BMI 34.83 kg/m2 02/19/2025 Encounters Encounter Location Date Provider Diagnosis [facility] [address] [place] [address] 02/19/2025 Regino Anne Allergic rhinitis J30.9 Assessments Encounter Date Diagnosis (ICD Code) Assessment Notes Treatment Notes Treatment Clinical Notes Section Notes 02/19/2025 Allergic rhinitis (ICD-10 - J30.9) [facility] Plan Of Treatment Treatment Notes Assessment Notes Allergic rhinitis [facility] Progress Notes * Demetria MAHAJANDOB: 5 (39 yo F)Acc No.[id number]:02/19/2025 Progress Note Patient: Demetria JACOBS Provider: Anny Rodríguez ([facility])MD :1985 A ge:39 Y S ex:Female Date:02/19/2025 Address:[address] [place], [place] [id number] Check In:09:23 AM ESTCheck O ut:10:27 AM EST Subjective: * Chief Complaints: * P resents to office alone for c/o sore throat x2 weeks. Seen Dr. Willson last week and told her that her throat was fine * HPI: G eneral: throat worse - now has some dif swallowing -. * ROS: E ENT: hearing changes d enies. v isual changes d enies.?non-healing mouth sores d enies. s wollen glands or neck lumps d enies. h oarseness d enies. s ore throat d enies. d ifficulty swallowing d enies. n ose bleeds d enies. n debbi congestion d enies. e ar ache d enies. e ar discharge?denies. r inging in ears d enies. l ight sensitivity d enies. e ye pain d enies. b lurring d enies. e ye irritation d enies. d ouble vision d enies.?vision loss d enies. G eneral/Constitutional: Sweats: D enies. F atigue d enies. S leep problems d enies. A norexia d enies. M alaise d enies. W eight loss d enies.?Fatigue or Weakness d enies. F ever or Chills d enies. C ardiovascular: Shortness of Breath w/lying flat d enies. L ightheadedness/dizziness d enies. C hest tightness/ heavy pressure d enies. S welling of legs, ankles, or feet d enies. W aking up with shortness of breath d enies. C hest pain denies. P alpitations d enies. W eight gain d enies. R espiratory: Chronic or frequent cough d enies. C oughing up blood?denies. D ifficulty breathing d enies. P roductive cough d enies. S noring?denies. S hortness of breath that awakens from sleep (PND) d enies. C hest pain d enies. S putum production d enies. W heezing d enies. M usculoskeletal: Joint pain d enies. J oint Fluid d enies. B ack pain d enies. K nee pain d enies. N melchor pain d enies. J oint Stiffness d enies. M uscle cramps d enies. W eakness of muscles d enies. A rthritis d enies. M uscle aches d enies. P ain in shoulder(s) d enies. S wollen joints d enies. * Active Problem List U07.1 COVID-19 Modified On:02/07/2023U Status:confirmed Z00.00 Well adult Modified On:12/02/2023U Status:confirmed G43.909 Migraine Modified On:01/09/2024U Status:confirmed S80.00XA Knee contusion Modified On:01/09/2024U Status:confirmed L72.3 Sebaceous cyst Modified On:09/09/2024/U Status:confirmed E04.1 Thyroid nodule Modified On:01/27/2025/U Status:confirmed J30.9 Allergic rhinitis Modified On:02/19/2025/U Status:confirmed M54.2 Neck pain Modified On:02/22/2025/U Status:confirmed R13.10 Difficulty swallowin g Modified On:02/22/2025U Status:confirmed * Medical History: * Surgical History: B reast lump removed 2008right ankle surgery 2004c-section 2020 * Hospitalization/Major Diagno stic Procedure: * Family History: M other: alive, pneumonia,right wrist fx, fracture radius, diagnosed with Anxiety. * Social History: T obacco Use: T obacco Use/Smoking P atient is a n onsmoker D rug/Alcohol: A JAVIER-C (Standard) D id you have a drink containing alcohol in the past year? N o P oints 0 I nterpretation N egative * Medications: T akingDiclofenac Sodium 75 MG Tablet Delayed Release 1 tablet as needed Orally Twice a day , Notes to Pharmacist: PRNImitrex(SUMAtriptan Succinate) 100 MG Tablet 1 tablet at least 2 hours between doses as needed Orally Twice a day , Notes to Pharmacist: PRNMedication List reviewed and reconciled with the patientTaking Diclofenac Sodium 75 MG Tablet Delayed Release 1 tablet as needed Orally Twice a day , Notes to Pharmacist: PRNTaking Imitrex(SUMAtriptan Succinate) 100 MG Tablet 1 tablet at least 2 hours between doses as needed Orally Twice a day , Notes to Pharmacist: PRNMedication List reviewed and reconciled with the patient Objective: * Vitals: W t:264lbs, Ht: 73 in, BP:130/80mm Hg, BMI:34.83Index, Ht-cm: 185.42 cm, Wt-k.75 kg. * Examination: P hysical Exam: GENERAL: w ell developed, well nourished, in no acute distress. HEAD: n ormocephalic/atraumatic. EYES: p upils equal, round and reactive to light, conjunctivae and sclerae normal. EARS: n o deformity or lesion of external ear, canals and TM appear normal bilaterally, TM's intact, not inflamed with normal light reflex, hearing grossly normal to conversational speech. NOSE: n o deformity, discharge, inflammation, or lesions.? MOUTH: m ucous membranes moist, normal oropharynx and posterior pharynx without lesions or exudates, tongue normal, dentition normal. NECK: n melchor supple, no masses or palpable cervical nodes, trachea midline, thyroid without nodules, masses, tenderness, or enlargement. CHEST: n o chest wall deformity, no chest wall tenderness.? LUNGS: n ormal respiratory effort and clear to auscultation, no wheezes, rales, or rhonchi, good air exchange. CARDIO: r egular rate and rhythm, normal S1 and S2, nor murmur, rub, or gallop. PULSES: n ormal capillary refill. ABDOMEN: s oft, non-distended, non-tender, no masses. MUSCULOSKELETAL: n o deformity or scoliosis noted, normal range of motion, joints normal, no erythema, edema, effusion, or ecchymosis. EXTREMITY: n o clubbing, cyanosis, edema, or deformity with normal ROM in both upper and lower bilateral extremities. NEUROLOGIC: g rossly normal. SKIN: n o rashes, ulcerations, or suspicious lesions. LYMPH NODES: n o cervical adenopathy, nodes normal. MENTAL STATUS: a lert and oriented x3, normal mood and affect. Assessment: * Assessment: 1. A llergic rhinitis - J30.9 (Primary) Plan: * Treatment: * Procedure Codes: * Preventive Medicine: Screenings/Counseling: B AK ACTION PLAN Above Normal BMI Follow-up D ietary management education, guidance, and counseling See treatment section of progress note for complete details of management plan. * * Sign off status: Completed Visit Status: C HK (Check Out) true * Provider: Anny Rodríguez ([facility])MD Date: 0 02/19/2025 Generated for Devantei fidel/Clive/eTransmitting on: 0 03/09/2025 12:22 PM EDT History and Physical Notes * HPI (History of Present Illness) Category Sub-Category Detail Notes Category Not es General throat worse - now has some dif swallowing - Examination Category Sub-Category Detail Notes Category Not es Physical Exam GENERAL: well developed, well nourished, in no acute distress HEAD: normocephalic/atraum atic EYES: pupils equal, round and reactive to light, conjunctivae and sclerae normal EARS: no deformity or lesi on of external ear, canals and TM appear normal bilaterally, TM's intact, not inflamed with normal light reflex, hearing grossly normal to conversational speech NOSE: no deformity, discha rge, inflammation, or lesions MOUTH: mucous membranes beau st, normal oropharynx and posterior pharynx without lesions or exudates, tongue normal, dentition normal NECK: neck supple, no mass es or palpable cervical nodes, trachea midline, thyroid without nodules, masses, tenderness, or enlargement CHEST: no chest wall deform ity, no chest wall tenderness LUNGS: normal respiratory e ffort and clear to auscultation, no wheezes, rales, or rhonchi, good air exchange CARDIO: regular rate and rhy thm, normal S1 and S2, nor murmur, rub, or gallop PULSES: normal capillary ref ill ABDOMEN: soft, non-distended, non-tender, no masses RECTAL: MUSCULOSKELETAL: no deformity or scol iosis noted, normal range of motion, joints normal, no erythema, edema, effusion, or ecchymosis EXTREMITY: no clubbing, cyanosi s, edema, or deformity with normal ROM in both upper and lower bilateral extremities NEUROLOGIC: grossly normal SKIN: no rashes, ulceratio ns, or suspicious lesions LYMPH NODES: no cervical adenopat hy, nodes normal MENTAL STATUS: alert and oriented x 3, normal mood and affect
--- OUTSIDE RECORDS SUMMARY | 2025-02-22 05:57 | XMS_ITS ---
Author Organization The [facility] in [place] Address [address] [place] [address] Care Team Providers Care Cloth Finishing Range Back Tender Name Role Phone Regino Rodríguez Primary Care Provider REASON FOR VISIT update swallowing and arm Problems Problem Type SNOMED Code ICD Code Onset Dates Problem Status W/U Status Risk Notes Problem Neck pain (M54.2) Active confirmed Encounters Encounter Location Date Provider Diagnosis [facility] [address] [place] [address] 02/22/2025 Regino Rodríguez Neck pain M54.2 ; Right shoulder pain M25.511 and Difficulty swallowing R13.10 Assessments Encounter Date Diagnosis (ICD Code) Assessment Notes Treatment Notes Treatment Clinical Notes Section Notes 02/22/2025 Neck pain (ICD-10 - M54.2) 02/22/2025 Right shoulder pain (ICD-10 - M25.511) 02/22/2025 Difficulty swallowing (ICD-10 - R13.10) Plan Of Treatment Pending Test Test Name Order Date Barium Swallow 02/22/2025 XR CSPINE 2_3 VIEWS 02/22/2025 XR SHOULDER 2+ VIEWS RIGHT 02/22/2025 Progress Notes * Demetria MAHAJAN BerniceDOB: 5 (39 yo F)Acc No.[id number]:02/22/2025 Patient: Demetria JACOBS :1985 A ge:39 Y S ex:Female Address:[address] [place] [address], [address] Subjective: * Chief Complaints: * U pdate swallowing and arm * Medical History: * Surgical History: * Hospitalization/Major Diagno stic Procedure: * Medications: Objective: * Vitals: * Physical Examination: Assessment: * Assessment: 1. N melchor pain - M54.2 (Primary) 2 . R ight shoulder pain - M25.511 ? 3 . D ifficulty swallowing - R13.10 Plan: * Treatment: 2. R ight shoulder pain I maging: XR SHOULDER 2+ VIEWS RIGHT 3. D ifficulty swallowing I maging: Barium Swallow * Procedure Codes: * true * Date: Generated for Aletha parra/Clive/Pujasmitting on: 0 03/09/2025 12:23 PM EDT
--- OUTSIDE RECORDS SUMMARY | 2025-02-23 04:44 | XMS_ITS ---
Author Organization The [facility] in [place] Address [address] [place] [address] Care Team Providers Care Steel Die Press Set Up Operator Name Role Phone Regino Rodríguez Primary Care Provider REASON FOR VISIT review xrays Encounters Encounter Location Date Provider Diagnosis [facility] [address] [place] [address] 02/23/2025 Regino Rodríguez Neck pain M54.2 Assessments Encounter Date Diagnosis (ICD Code) Assessment Notes Treatment Notes Treatment Clinical Notes Section Notes 02/23/2025 Neck pain (ICD-10 - M54.2) Plan Of Treatment Pending Test Test Name Order Date MRI Cervical Spine w/o contrast * 2024 Progress Notes * Demetria MAHAJAN BerniceDOB: 5 (39 yo F)Acc No.[id number]:02/23/2025 Patient: Demetria JACOBS :1985 A ge:39 Y S ex:Female Address:[address] [place] [address], [phone] Subjective: * Chief Complaints: * R eview xrays * Medical History: * Surgical History: * Hospitalization/Major Diagno stic Procedure: * Medications: Objective: * Vitals: * Physical Examination: Assessment: * Assessment: 1. N melchor pain - M54.2 (Primary) Plan: * Treatment: * Procedure Codes: * true * Date: Generated for Printi ng/Faxing/eTransmitting on: 0 03/09/2025 08:24 AM EDT
--- OUTSIDE RECORDS SUMMARY | 2025-02-25 08:45 | XMS_ITS | Encounter Summary ---
Author Organization [facility] [employer] [facility] tem Address [id number] [address] [place] [address] Care Team Providers Care Correctional Sergeant Name Role Phone Unavailable Primary Care Provider Unavailabl e Reason for Referral * Diagnostic Imaging (Routine) - Pending Review Specialty Diagnoses / Procedures Referred By Contac t Referred To Contact Diagnoses Dysphagia, unspecified type Procedures Fluoroscopy esophagus Cory Rodríguez MD [address] [place] [address] Phone: tel: fax: Referral ID Status Reason Start Date Expiration Date V isits Requested Visits Authorized [id number] Pending Review 02/22/2025 02/22/2026 1 1 Reason for Visit * Diagnostic Imaging (Routine) - Pending Review Specialty Diagnoses / Procedures Referred By Contac t Referred To Contact Diagnoses Dysphagia, unspecified type Procedures Fluoroscopy esophagus Cory Rodrí[place] [address] [place] [address] Phone: tel: fax: Referral ID Status Reason Start Date Expiration Date V isits Requested Visits Authorized [id number] Pending Review 02/22/2025 02/22/2026 1 1 Encounter Details Date Type Department Care Team (Latest Contact Info) Description 02/25/2025 8:45 AM EDT - 02/25/2025 11:59 PM EDT Hospital Encounter [facility] - Radiology Imaging [address] [address] Dysphagia, unspecified type Discharge Disposition: Home Social History Tobacco Use Types Packs/Day Years Used Date Smoking Tobacco: Never Assessed Childcare Answer Date Recorded Childcare Unknown 03/25/2019 Employment Answer Date Recorded Employment Unknown 03/25/2019 Comments Unknown Sex and Gender Information Value Date Recorded Sex Assigned at Not on file Legal Sex Female 11:26 AM EDT Gender Identity Not on file Sexual Orientation Not on file documented as of this encounter Plan of Treatment Not on file documented as of this encounter Procedures Procedure Name Priority Date/Time Associated Diagnosis Comments FL ESOPHAGUS Routine 02/25/2025 9:21 AM EDT Dysphagia, unspecified type documented in this encounter Results * Fluoroscopy esophagus (02/25/2025 9:21 AM EDT) Anatomical Region Laterality Modality Body Radio Fluoroscop y 02/25/2025 10:0 5 AM EDT Narrative 02/25/2025 10:08 AM EDT ESOPHAGRAM COMPARISON: None. HISTORY: Dysphagia, difficulty swallowing, feels like food and drink gets stuck. TECHNIQUE: Double contrast esophagram examination was performed using effervescent crystals. Multiple fluoroscopic images obtained. FINDINGS: The esophagus has a normal course and caliber. Only minimal stasis in the esophagus and the upright position. In the prone, CUEVAS position, there was small to moderate volume stasis in the esophagus with intermittent intraesophageal reflux. However, no evidence for gastroesophageal reflux during fluoroscopy. The esophagus has a normal mucosal pattern with no persistent filling defects identified. No definite aspiration. At the end of the exam, a barium tablet was administered with water. The tablet passed freely into the esophagus with no evidence for an esophageal stricture. There is no hiatal hernia. Reference Air Kerma: 50.33 mGy IMPRESSION: 1. Small to moderate volume esophageal stasis in the prone, CUEVAS position with intermittent intraesophageal reflux. However, no gastroesophageal reflux identified during fluoroscopy. 2. No evidence for an esophageal stricture. 3. No definite aspiration. Given patient's symptoms, consider consultation with speech pathology if clinically indicated. Finalized by David Adair MD on 02/25/2025 10:08 AM Procedure Note David Adair MD - 05/15/2025 ESOPHAGRAM COMPARISON: None. HISTORY: Dysphagia, difficulty swallowing, feels like food and drink getsstuck. TECHNIQUE: Double contrast esophagram examination was performed usingeffervescent crystals. Multiple fluoroscopic images obtained. FINDINGS: The esophagus has a normal course and caliber. Only minimal stasis in theesophagus and the upright position. In the prone, CUEVAS position, there wassmall to moderate volume stasis in the esophagus with intermittentintraesophageal reflux. However, no evidence for gastroesophageal refluxduring fluoroscopy. The esophagus has a normal mucosal pattern with no persistentfilling defects identified. No definite aspiration. At the end of theexam, a barium tablet was administered with water. The tablet passedfreely into the esophagus with no evidence for an esophageal stricture.There is no hiatal hernia. Reference Air Kerma: 50.33 mGy IMPRESSION: 1. Small to moderate volume esophageal stasis in the prone, CUEVAS positionwith intermittent intraesophageal reflux. However, no gastroesophagealreflux identified during fluoroscopy. 2. No evidence for an esophageal stricture. 3. No definite aspiration. Given patient's symptoms, consider consultationwith speech pathology if clinically indicated. Finalized by David Adair MD on 02/25/2025 10:08 AM Cory Rodríguez MD IMG FLUOROSCOPY ORDERABLES Trina l Result documented in this encounter Visit Diagnoses Diagnosis Dysphagia, unspecified type documented in this encounter Administered Medications Inactive Administered Medications - up to 3 most recent administrations Medication Order MAR Action Action Date Dose Rate Site barium sulfate (E-Z-DISK) tablet 700 mg 700 mg, oral, Once in imaging, contrast, barium sulfate (E-Z-DISK) tablet, Starting on Celina 02/25/25 at 0917, For 1 dose Given 02/25/2025 9:25 AM EDT 700 mg barium sulfate (E-Z-HD) 98 % suspension 340 g 340 g, oral, Once in imaging, contrast, barium sulfate (E-Z-HD) 98 % suspension, Starting on Celina 02/25/25 at 0851, For 1 dose Given 02/25/2025 9:15 AM EDT 340 g barium sulfate (E-Z-PAQUE) 96 % (w/w) powder 176 g 176 g, oral, Once in imaging, contrast, barium sulfate (E-Z-PAQUE) 96 % (w/w) powder, Starting on Celina 02/25/25 at 0851, For 1 dose Given 02/25/2025 9:15 AM EDT 176 g sod bicarb-citric ac-simeth (E-Z GAS II) 2.21-1.53 gram/4 gram granule packet 1 packet 1 packet, oral, Once in imaging, sod bicarb-citric ac-simeth (E-Z GAS II) 2.21-1.53 gram/4 gram granule packet, Starting on Celina 02/25/25 at 0851, For 1 dose Given 02/25/2025 9:15 AM EDT 1 packet documented in this encounter
--- OUTSIDE RECORDS SUMMARY | 2025-03-09 08:30 | XMS_ITS | Encounter Summary ---
Author Organization [facility] Address [address] [place] [address] Care Team Providers Care Solid Tire Finisher Name Role Phone Cory Rodríguez MD Primary Care Provider [phone] Reason for Visit * Reason Comments Well Women Visit Encounter Details Date Type Department Care Team (Late st Contact Info) Description 03/09/2025 8:30 AM EDT Office Visit [facility] [address] [place] [address] Nestor Barrera DO [address] [facility] [address] [place], [facility]11 Well woman exam with routine gynecological exam; Weight gain; BMI 34.0-34.9,adult Social History Tobacco Use Types Packs/Day Years Used Date Smoking Tobacco: Never Smokeless Tobacco: Never Alcohol Use Standard Drinks/Week Comments Not Currently 0 (1 standard drink = 0.6 oz pur e alcohol) caffeine: soda, coffee Comments No Sex and Gender Information Value Date Recorded Sex Assigned at Not on file Legal Sex Female 8:33 PM EDT Gender Identity Not on file Sexual Orientation Not on file documented as of this encounter Last Filed Vital Signs Vital Sign Reading Time Taken Comments Blood Pressure 120/80 03/09/2025 8:33 AM EDT Pulse - - Temperature - - Respiratory Rate - - Oxygen Saturation - - Inhaled Oxygen Concentration - - Weight 119 kg (261 lb 12.8 oz) 03/09/2025 8:33 A M EDT Height - - Body Mass Index 34.54 02/09/2025 8:08 AM EDT documented in this encounter Progress Notes * Kathrine Pugh LPN - 03/09/2025 8:30 AM EDT Reason for Appointment: Patient ID: Demetria Arciniega is a 39 y.o. female who presents for Well Women Visit Patient presents today for Annual Exam. MEDICATIONS Current Outpatient Medications Medication Instructions clobetasol (Temovate) 0.05 % external solution APPLY ONCE DAILY TO AFFECTED AREAS ON EARS/SCALP, EARS NEEDED FOR SCALING, ITCHING, REDNESS. Imitrex 100 MG tablet Every 12 hours Vtama 1 Units, Daily ALLERGIES No Known Allergies PROBLEMS Active Ambulatory Problems Diagnosis Date Noted Foot pain 02/05/2025 Generalized anxiety disorder ([facility]) 02/05/2025 Posttraumatic stress disorder ([facility]) 02/05/2025 Obsessive-compulsive disorder ([facility]) 02/05/2025 Shoulder strain 02/05/2025 Resolved Ambulatory Problems Diagnosis Date Noted No Resolved Ambulatory Problems Past Medical History: Diagnosis Date DUB (dysfunctional uterine bleeding) Psoriasis PTSD (post-traumatic stress disorder) ([facility]) HISTORY PAST MEDICAL HISTORY SOCIAL HISTORY Past Medical History: Diagnosis Date DUB (dysfunctional uterine bleeding) Psoriasis PTSD (post-traumatic stress disorder) ([facility]) Social History Tobacco Use Smoking status: Never Smokeless tobacco: Never Vaping Use Vaping status: Never Used Substance Use Topics Alcohol use: Not Currently Comment: caffeine: soda, coffee Drug use: Never FAMILY HISTORY Family History Problem Relation Name Age of Onset Migraines Mother Cancer Father Lung cancer Father stage 4 Hypertension Other Heart disease Other SURGICAL HISTORY Past Surgical History: Procedure Laterality Date ANKLE SURGERY Right 2003 repair BREAST LUMPECTOMY Right SECTION, CLASSIC REVIEW OF SYSTEMS Review of Systems: Review of Systems Constitutional: Negative. HENT: Negative. Eyes: Negative. Respiratory: Negative. Cardiovascular: Negative. Gastrointestinal: Negative. Genitourinary: Negative. Musculoskeletal: Negative. Skin: Negative. Neurological: Negative. All other systems reviewed and are negative. Hematological: Negative. Endocrine: Negative. Allergic/Immunologic: Negative. OBJECTIVE Objective: Physical Exam Constitutional: Appearance: Normal appearance. She is well-developed. Genitourinary: Vulva normal. Breasts: Breasts are soft. Right: Normal. Left: Normal. Cardiovascular: Rate and Rhythm: Normal rate and [...] nursing note reviewed. Exam conducted with a mental retardation aide present. Vitals: Estimated body mass index is 34.54 kg/m?? as calculated from the following: Height as of 02/09/25: 6' 1 . Weight as of this encounter: 261 lb 12.8 oz. BP: 120/80 Patient's last menstrual period was 02/26/2025. ASSESSMENT & PLAN ICD-10-CM 1. Well woman exam with routine gynecological exam Z01.419 Pap Smear HPV DNA probe, amplified POCT urinalysis dipstick manually resulted Annual Exam: Patient presents today for an annual exam. Patient states she is doing well and has complaints of weight gain, skin issues and new diagnosis of psoriasis. Rx for metformin faxed to pharmacy. Pap was obtained without difficulty. Patient presents today for initial Adipex prescription. The importance of keeping a food journal, proper nutrition/diet, and exercise regimen while taking Adipex has been discussed. Patient verbalized understanding and signed consents to initiate (Adipex) medication therapy. Patient was given a printed prescription signed by provider to take to their local pharmacy. Follow Up: Patient is to return to the office in 1 month for further evaluation to assess patient progress. Weight and blood pressure will need to be captured in order for patient to receive 2nd prescription. Orders Placed This Encounter Procedures HPV DNA probe, amplified POCT urinalysis dipstick manually resulted Follow Up: Patient is to return in one year for annual unless needed otherwise. Documented by Kathrine Pugh LPN on behalf of: Nestor Barrera DO documented in this encounter Plan of Treatment Upcoming Encounters Date Type Department Care Team (Late st Contact Info) Description 04/06/2025 9:10 AM EDT Office Visit [facility] [address] [place] [address] Nestor Barrera DO [address] [place] [address] 03/14/2026 9:00 AM EDT Office Visit [facility] [address] [place] [phone] Nestor Barrera, DO [address] [place], [place] [phone] Scheduled Orders Name Type Priority Associated Diagnoses Orde r Schedule Pap Smear Pathology and Cytology Routine Well woman exam with routine gynecological exam Ordered: 03/09/2025 HPV DNA probe, amplified Microbiology Routine Well woman exam with routine gynecological exam Ordered: 03/09/2025 documented as of this encounter Procedures Procedure Name Priority Date/Time Associated Diagnosis Comments POCT URINALYSIS DIPSTICK Routine 03/09/2025 8:40 AM EDT Well woman exam with routine gynecological exam documented in this encounter Results * (ABNORMAL) POCT urinalysis dipstick manually resulted (03/09/2025 8:40 AM EDT) Color, UA Yellow Clarity, UA Clear Glucose, UA Negative Negative - 2000(110) ++++ mg/dL Bilirubin, UA Positive Negative - 4(70) +++ mg/dL Comment:small Ketones, UA Negative Negative - 160(16) ++++ mg/dL Spec Grav, UA 1.030 1 - 1.03 Blood, UA Negative Negative - 50 Gilles/mcL pH, UA 6.0 5 - 9 Protein, UA Negative Negative - 2000(20) ++++ mg/dL Urobilinogen, UA 1.0 0.2 - 12 mg/dL Leukocytes, UA Negative Negative - 500+++ Milka/mcL Nitrite, UA Negative Negative - Positive Urine 03/09/2025 8:40 AM EDT us Nestor Barrera DO POINT OF CARE TEST ENTER/EDIT OR DERABLES Final Result documented in this encounter Visit Diagnoses Diagnosis Well woman exam with routine gynecological exam Routine gynecological examination Weight gain Other symptoms concerning nutrition, metabolism, and development BMI 34.0-34.9,adult documented in this encounter Care Teams Solid Tire Finisher Relationship Specialty Start Date End Date Cory Rodríguez MD [address] [place] [address] PCP - General Family Medicine 01/06/24 documented as of this encounter
--- OUTSIDE RECORDS SUMMARY | 2025-03-09 12:23 | XMS_ITS | Encounter Summary ---
Author Organization [facility] Address [address] [place] [address] Care Team Providers Care Avionics System Engineer Name Role Phone Cory Rodríguez MD Primary Care Provider [phone] Encounter Details Date Type Department Care Team (Late st Contact Info) Description 12/21/2024 Orders Only [facility] [address] [address] María Elena Sargent LPN [address] [place] [facility]11 Social History Tobacco Use Types Packs/Day Years Used Date Smoking Tobacco: Never Smokeless Tobacco: Never Alcohol Use Standard Drinks/Week Comments Yes 0 (1 standard drink = 0.6 oz pur e alcohol) caffeine: soda, coffee Comments No Sex and Gender Information Value Date Recorded Sex Assigned at Not on file Legal Sex Female 8:33 PM EDT Gender Identity Not on file Sexual Orientation Not on file documented as of this encounter Plan of Treatment Upcoming Encounters Date Type Department Care Team (Late st Contact Info) Description 04/06/2025 9:10 AM EDT Office Visit [facility] [address] [phone] Nestor Barrera, DO [address] [place] [address] 03/14/2026 9:00 AM EDT Office Visit [facility] [address] [phone] Nestor Barrera, DO [address] [place], [facility]11 documented as of this encounter Procedures Procedure Name Priority Date/Time Associated Diagnosis Comments PAP SMEAR Routine 03/02/2024 12:00 AM EDT documented in this encounter Results * Pap Smear (03/02/2024 12:00 AM EDT) Swab Cervical swab / Unknown us [facility] Nurse LAB CYTOLOGY ORDERABLES Final Result EXTERNAL LAB documented in this encounter Visit Diagnoses Not on filedocumented in this encounter Care Teams Avionics System Engineer Relationship Specialty Start Date End Date Cory Rodríguez MD [address] [place] [address] PCP - General Family Medicine 01/06/24 documented as of this encounter
--- OUTSIDE RECORDS SUMMARY | 2025-03-09 12:23 | XMS_ITS | Clinical Summary ---
Author Organization [facility] Address [address] [place] [address] Care Team Providers Care National Coverage Specialist Name Role Phone Cory Rodríguez MD Primary Care Provider [phone] Allergies No known active allergies Medications Imitrex 100 MG tablet every 12 (twelve) hours 01/09/20 24 Active clobetasol (Temovate) 0.05 % external solution APPLY ONCE DAILY TO AFFECTED AREAS ON EARS/SCALP, EARS NEEDED FOR SCALING, ITCHING, REDNESS. 01/01/20 25 Active Tapinarof (Vtama) 1 % cream Apply 1 Units topically Daily Active metFORMIN XR (Glucophage-XR ) 500 MG 24 hr tabletIndicati ons:Weight gain,BMI 34.0-34.9,adul t Take 1 tablet (500 mg) by mouth in the evening. Take with meals Do not crush, chew, or split. 30 tablet 11 03/09/20 25 026 Active phentermine (Adipex-P) 37.5 MG tabletIndicati ons:Weight gain,BMI 34.0-34.9,adul t Take 1 tablet (37.5 mg) by mouth in the morning. Take before meals. 30 tablet 03/09/20 25 025 Active metFORMIN XR (Glucophage-XR ) 500 MG 24 hr tabletIndicati ons:Insulin resistance Take 1 tablet (500 mg) by mouth in the evening. Take with meals Do not crush, chew, or split. 30 tablet 11 01/14/20 24 025 Discontinued DICLOFENAC SODIUM OP Use 75 mg in the mouth or throat 025 Discontinued(Th erapy completed) Active Problems Problem Noted Date Diagnosed Date Foot pain 02/05/2025 Generalized anxiety disorder 02/05/2025 Posttraumatic stress disorder 02/05/2025 Obsessive-compulsive disorder 02/05/2025 Shoulder strain 02/05/2025 Encounters Date Type Department Care Team Description 03/09/2025 8:30 AM EDT Office Visit [facility] [address] [address] Nestor Barrera, Well woman exam with routine gynecological exam; Weight gain; BMI 34.0-34.9,adult 03/09/2025 Bamboo flowsheet [facility] [address] [phone] Nestor Barrera DO 02/09/2025 8:10 AM EDT Office Visit [facility] [address] [facility] [address] [place] [address] Fatou Willson MD Thyroid nodule (CMS/HCC) (Primary Dx); LAD (lymphadenopathy), posterior cervical 02/09/2025 Bamboo flowsheet [facility] [address] [facility] [address] [place] [address] Fatou Willson MD 02/09/2025 Travel 01/27/2025 Clinisync Result Encounter [facility] External Department Unsolicited Nestor Barrera, 12/21/2024 Orders Only [facility] [address] [place] [phone] María Elena Sargent LPN from Last 3 Months Immunizations Immunization Administration Dates Next Due Influenza Whole 07/30/2007 Novel [id number], preservative-free 08/19 Tdap 05/04/2020,04/02/2010 Family History Medical History Relation Name Comments Cancer Father Lung cancer Father stage 4 Migraines Mother Heart disease Other Hypertension Other Relation Name Status Comments Father Alive Mother Alive Other Social History Tobacco Use Types Packs/Day Years [...] on file Sexual Orientation Not on file Last Filed Vital Signs Vital Sign Reading Time Taken Comments Blood Pressure 120/80 03/09/2025 8:33 AM EDT Pulse 83 02/09/2025 8:08 AM EDT Temperature - - Respiratory Rate - - Oxygen Saturation - - Inhaled Oxygen Concentration - - Weight 119 kg (261 lb 12.8 oz) 03/09/2025 8:33 A M EDT Height 185.4 cm (6' 1 ) 02/09/2025 8:08 AM EDT Body Mass Index 34.54 02/09/2025 8:08 AM EDT Plan of Treatment Upcoming Encounters Date Type Department Care Team (Late st Contact Info) Description 04/06/2025 9:10 AM EDT Office Visit [facility] [address] [place] [phone] Nestor Barrera [place] [address] 03/14/2026 9:00 AM EDT Office Visit [facility] [place] [address] Nestor Barrera [address] [place] [address] Procedures Procedure Name Priority Date/Time Associated Diagnosis Comments POCT URINALYSIS DIPSTICK Routine 03/09/2025 8:40 AM EDT Well woman exam with routine gynecological exam MM TOMOSYNTHESIS SCREENING BI 01/27/2025 2:17 PM EDT CULTURE, ANAEROBIC BACTERIA W/GRAM STAIN Routine 12/21/2024 4:05 PM EDT Bartholin's gland cyst CULTURE, AEROBIC BACTERIA Routine 12/21/2024 4:05 PM EDT Bartholin's gland cyst from Last 3 Months Results * (ABNORMAL) POCT urinalysis dipstick manually resulted (03/09/2025 8:40 AM EDT) Color, UA Yellow Clarity, UA Clear Glucose, UA Negative Negative - 1999(110) ++++ mg/dL Bilirubin, UA Positive Negative - 4(70) +++ mg/dL Comment:small Ketones, UA Negative Negative - 160(16) ++++ mg/dL Spec Grav, UA 1.030 1 - 1.03 Blood, UA Negative Negative - 50 Gilles/mcL pH, UA 6.0 5 - 9 Protein, UA Negative Negative - 1999(20) ++++ mg/dL Urobilinogen, UA 1.0 0.2 - 12 mg/dL Leukocytes, UA Negative Negative - 500+++ Milka/mcL Nitrite, UA Negative Negative - Positive Urine 03/09/2025 8:40 AM EDT Nestor Barrera DO POINT OF CARE TEST ENTER/EDIT OR DERABLES Final Result * MM TOMOSYNTHESIS SCREENING BI (01/27/2025 2:17 PM EDT) Anatomical Region Laterality Modality Other 01/27/2025 2:17 PM EDT Narrative 01/27/2025 2:18 [place] [address] Mammography Report Signed Patient: DEMETRIA ARCINIEGA MR#: [id number] : 1985 Acct:[id number] Age/Sex: 39 / F ADM Date: 01/27/25 Loc: MAMMO Attending Dr: Nestor Barrera D.O. Ordering Physician: Nestor Barrera D.O. Results: Date of Service: 01/27/25 Follow Up: Procedure(s): MM tomosynthesis screening BI Accession Number(s): [id number] cc: Nestor Barrera D.O.; Cory Rodríguez M.D. Patient Name: DEMETRIA ARCINIEGA MR#: [id number] : 1985 Exam Date: 01/27/2025 Ordering Doctor: DR Nestor Barrera . RADIOLOGY REPORT PROCEDURE: MM TOMOSYNTHESIS SCREENING BI COMPARISON: None. INDICATIONS: WELL ADULT Z00.00 Calculator Name NCI Breast Cancer Risk Assessment Tool 5 Year Breast Cancer Risk 1.00% Lifetime Breast Cancer Risk 15.20% Personal Breast Cancer No Personal Ovarian Cancer No Treatments None Family Cancers Father with lung cancer at age 64; Grandfather-maternal with colon cancer at age 53; Grandfather-paternal with colon cancer at age 72. LOCATION: [facility] BREAST COMPOSITION: The breasts are heterogeneously dense,which may obscure small masses. FINDINGS: DIAGNOSTIC CATEGORY 1--NEGATIVE. LEFT BREAST: No significant suspicious finding. RIGHT BREAST: No significant suspicious finding. RECOMMENDATIONS: ROUTINE MAMMOGRAM AND CLINICAL EVALUATION IN 12 MONTHS. PLEASE NOTE: A NORMAL MAMMOGRAM DOES NOT EXCLUDE THE POSSIBILITY OF BREAST CANCER. A CLINICALLY SUSPICIOUS PALPABLE LUMP SHOULD BE BIOPSIED. Dictated by: Shahab Hamilton DO on 01/27/2025 at 14:15 Approved by: Shahab Hamilton DO on 01/27/2025 at 14:17 Dictated By: Shahab Hamilton M.D. Signed By: 01/27/25 1418 DD/ 1417 TD/TT: Operational Test Mechanic: Procedure Note Radiology, Radiologist, MD - 01/27/2025 [place] [address] Mammography Report Signed Patient: DEMETRIA ARCINIEGA JMR#: [id number] : 1985Acct:[id number] Age/Sex: 39 / FADM Date: 01/27/25 Loc: MAMMO Attending Dr: Nestor Barrera D.O. Ordering Physician: Nestor Barrera D.O.Results: Date of Service: 01/27/25Follow Up: Procedure(s): MM tomosynthesis screening BI Accession Number(s): [id number] cc: Nestor Barrera D.O.; Cory Rodríguez M.D. Patient Name: DEMETRIA ARCINIEGA MR#: [id number] : 1985 Exam Date: 01/27/2025 Ordering Doctor: DR Nestor Barrera . RADIOLOGY REPORT PROCEDURE: MM TOMOSYNTHESIS SCREENING BI COMPARISON: None. INDICATIONS: WELL ADULT Z00.00 Calculator Name NCI Breast Cancer Risk Assessment Tool 5 Year Breast Cancer Risk 1.00% Lifetime Breast Cancer Risk 15.20% Personal Breast Cancer No Personal Ovarian Cancer No Treatments None Family Cancers Father with lung cancer at age 64; Grandfather-maternal with colon cancer at age 53; Grandfather-paternal with colon cancer at age72. LOCATION: [facility] BREAST COMPOSITION: The breasts are heterogeneously dense,which may obscure small masses. FINDINGS: DIAGNOSTIC CATEGORY 1--NEGATIVE. LEFT BREAST: No significant suspicious finding. RIGHT BREAST: No significant suspicious finding. RECOMMENDATIONS: ROUTINE MAMMOGRAM AND CLINICAL EVALUATION IN 12 MONTHS. PLEASE NOTE: A NORMAL MAMMOGRAM DOES NOT EXCLUDE THE POSSIBILITY OFBREAST CANCER. A CLINICALLY SUSPICIOUS PALPABLE LUMP SHOULD BE BIOPSIED. Dictated by: Shahab Hamilton DO on 01/27/2025 at 14:15 Approved by: Shahab Hamilton DO on 01/27/2025 at 14:17 Dictated By: Shahab Hamilton M.D. Signed By:01/27/25 1418 DD/ 1417 TD/TT: Operational Test Mechanic: us Nestor Holly DO [facility] Final Result * Aerobic culture (12/21/2024 4:05 PM EDT) Structure of right buttock / Unknown us Nestor Holly DO LAB MICROBIOLOGY - GENERAL ORDER AYLA Final Result EXTERNAL LAB * Anaerobic culture (12/21/2024 4:05 PM EDT) Swab Structure of right buttock / Unknown us Nestor Holly DO LAB MICROBIOLOGY - GENERAL ORDER AYLA Final Result EXTERNAL LAB from Last 3 Months Insurance BCBS Care Teams National Coverage Specialist Relationship Specialty Start Date End Date Cory Rodríguez MD [address] [place] [address] PCP - General Family Medicine 01/06/24
--- OUTSIDE RECORDS SUMMARY | 2025-03-09 12:23 | XMS_ITS | Encounter Summary ---
Author Organization [employer] s tem Address [id number] [address] [place] [address] Care Team Providers Care Laborer Name Role Phone Unavailable Primary Care Provider Unavailabl e Encounter Details Date Type Department Care Team (Latest Contact Info) Description 02/25/2025 Travel Social History Tobacco Use Types Packs/Day Years [...] on file documented as of this encounter Visit Diagnoses Not on filedocumented in this encounter
--- OUTSIDE RECORDS SUMMARY | 2025-03-09 12:23 | XMS_ITS | Encounter Summary ---
Author Organization [facility] Address [address] [place] [address] Care Team Providers Care Plasma Cutting Machine Operator Name Role Phone Cory Rodríguez MD Primary Care Provider [phone] Encounter Details Date Type Department Care Team (Late st Contact Info) Description 03/09/2025 Bamboo flowsheet [facility] OB [address] [place] [phone] Nestor Barrera, DO [address] [place], [facility]11 Social History Tobacco Use Types Packs/Day Years [...] 04/06/2025 9:10 AM EDT Office Visit [facility] OB [address] [facility] [place] [phone] Nestor Barrera, DO [address] [place], [place] [phone] 03/14/2026 9:00 AM EDT Office Visit [facility] OB [address] [place] [phone] Nestor Barrera, DO [address] [place] [place], [place] [phone] documented as of this encounter Visit Diagnoses Not on filedocumented in this encounter Care Teams Plasma Cutting Machine Operator Relationship Specialty Start Date End Date Cory Rodríguez MD [address] [place] [address] PCP - General Family Medicine 01/06/24 documented as of this encounter
--- OUTSIDE RECORDS SUMMARY | 2025-03-09 12:23 | XMS_ITS | Encounter Summary ---
Author Organization [facility] Address [address] [place] [address] Care Team Providers Care Fire Hazard Inspector Name Role Phone Cory Rodríguez MD Primary Care Provider [phone] Encounter Details Date Type Department Care Team (Late st Contact Info) Description 01/13/2024 Clinisync Result Encounter [facility] External Department Unsolicited Jovany Barrera, DO [address] [place] [address] Josefina Roque, [place] [id number] Social History Tobacco Use Types Packs/Day Years Used Date Smoking Tobacco: Never Alcohol Use Standard Drinks/Week Comments Yes 0 (1 standard drink = 0.6 oz pur e alcohol) caffeine: soda, coffee Comments Unknown Sex and Gender Information Value Date Recorded Sex Assigned at Not on file Legal Sex Female 8:33 PM EDT Gender Identity Not on file Sexual Orientation Not on file documented as of this encounter Plan of Treatment Upcoming Encounters Date Type Department Care Team (Late st Contact Info) Description 04/06/2025 9:10 AM EDT Office Visit [facility] [address] [facility] [place] [id number] Jovany Barrera, DO [facility] [place] [address] 03/14/2026 9:00 AM EDT Office Visit [facility] [address] [place] [phone] Jovany Barrera, DO [facility] [place] [address] documented as of this encounter Procedures Procedure Name Priority Date/Time Associated Diagnosis Comments US PELVIS W/ TRANSVAGINAL 01/13/2024 11:26 AM EDT documented in this encounter Results * US PELVIS W/ TRANSVAGINAL (01/13/2024 11:26 AM EDT) Anatomical Region Laterality Modality Other 01/13/2024 11:2 6 AM EDT Narrative 01/13/2024 11:29 [place] [address] Ultrasound Report Signed Patient: DEMETRIA ARCINIEGA MR#: [id number] : 1985 Acct:[id number] Age/Sex: 38 / F ADM Date: 01/11/24 Loc: US Attending Dr: Jovany Barrera D.O. Ordering Physician: Jovany Barrera D.O. Date of Service: 01/11/24 Procedure(s): US pelvis w/ transvaginal Accession Number(s): [id number] cc: Jovany Barrera D.O.; Physician,Non-Staff M.Phil [facility] [place] [id number] Patient Name: DEMETRIA ARCINIEGA MRN: [id number] date: 1985 Sex: F Assigned Patient Location: Current Patient Location: Accession/Order Number: [id number] Exam Date: 01/11/2024 11:10 Report Date: 01/13/2024 11:26 At the request of: JOVANY BARRERA Procedure: US pelvis w/ transvaginal EXAMINATION: US pelvis w/ transvaginal HISTORY: ABNORMAL MENSTRUAL CYCLE N92.6 COMPARISON: No relevant comparison available. TECHNIQUE: Transabdominal and/or transvaginal sonographic examination was performed as indicated by examination type. FINDINGS: UTERUS: Normal size and appearance. Incidental small nabothian cyst. Uterus size: 8.1 x 4.1 x 5.3 cm ENDOMETRIUM: Normal homogeneous appearance. Endometrial thickness: 5 mm RIGHT OVARY: Contains a 2.0 cm follicle versus benign-appearing cyst. Duplex Doppler demonstrates normal waveform and flow; resistive index 0.5. Ovary size: 3.7 x 2.1 x 2.2 cm LEFT OVARY: Normal size and appearance. Duplex Doppler demonstrates normal waveform and flow; resistive index 0.6. Ovary size: 2.7 x 1.7 x 2.2 cm CUL-DE-SAC: Trace amount of free fluid, likely physiologic. BLADDER: Unremarkable. OTHER: None. US/US pelvis w/ transvaginal IMPRESSION: 1. No abnormal or suspicious findings to account for patient's symptoms. Electronically authenticated by: MANUEL DEL ANGEL Date: 01/13/2024 11:26 Dictated By: Manuel Del Angel M.D. Signed By: 01/13/24 1129 DD/ 1126 TD/TT: Local Owner Operator Truck Driver: Procedure Note Radiology, Radiologist, MD - 01/16/2024 [place] [address] Ultrasound Report Signed Patient: DEMETRIA ARCINIEGA R#: [id number] : 1985Acct:[id number] Age/Sex: 38 / FADM Date: 01/11/24 Loc: US Attending Dr: Jovany Barrera D.O. Ordering Physician: Jovany Barrera D.O. Date of Service: 01/11/24 Procedure(s): US pelvis w/ transvaginal Accession Number(s): [id number] cc: Jovany Barrera D.O.; Physician,Non-Staff Deepa [facility] [place] [id number] Patient Name: DEMETRIA ARCINIEGA MRN: [id number] date: 1985 Sex: F Assigned Patient Location: US Current Patient Location: US Accession/Order Number: [id number] Exam Date: 01/11/2024 11:10 Report Date: 01/13/2024 11:26 At the request of: JOVANY BARRERA Procedure: US pelvis w/ transvaginal EXAMINATION: US pelvis w/ transvaginal HISTORY: ABNORMAL MENSTRUAL CYCLE N92.6 COMPARISON: No relevant comparison available. TECHNIQUE: Transabdominal and/or transvaginal sonographic examination was performed as indicated by examination type. FINDINGS: UTERUS: Normal size and appearance. Incidental small nabothian cyst.Uterus size: 8.1 x 4.1 x 5.3 cm ENDOMETRIUM: Normal homogeneous appearance. Endometrial thickness: 5 mm RIGHT OVARY: Contains a 2.0 cm follicle versus benign-appearing cyst.Duplex Doppler demonstrates normal waveform and flow; resistive index 0.5. Ovary size: 3.7 x 2.1 x 2.2 cm LEFT OVARY: Normal size and appearance. Duplex Doppler demonstrates normal waveform and flow; resistive index 0.6. Ovary size: 2.7 x 1.7 x 2.2 cm CUL-DE-SAC: Trace amount of free fluid, likely physiologic. BLADDER: Unremarkable. OTHER: None. US/US pelvis w/ transvaginal IMPRESSION: 1. No abnormal or suspicious findings to account for patient's symptoms. Electronically authenticated by: MANUEL DEL ANGEL Date: 01/13/2024 11:26 Dictated By: Manuel Del Angel M.D. Signed By:01/13/24 1129 DD/ 1126 TD/TT: Local Owner Operator Truck Driver: us Jovany Holly DO [facility] Final Result documented in this encounter Visit Diagnoses Not on filedocumented in this encounter Care Teams Fire Hazard Inspector Relationship Specialty Start Date End Date Cory Rodríguez MD [address] [place] [address] PCP - General Family Medicine 01/06/24 documented as of this encounter
--- OUTSIDE RECORDS SUMMARY | 2025-03-09 12:23 | XMS_ITS | Clinical Summary ---
Author Organization [facility] tem Address [id number] [address] [place] [address] Care Team Providers Care Car Driver Name Role Phone Unavailable Primary Care Provider Unavailabl e Encounters Date Type Department Care Team Description 02/25/2025 8:45 AM EDT - 02/25/2025 11:59 PM EDT Hospital Encounter [facility] - Radiology Imaging [address] [address] Dysphagia, unspecified type Discharge Disposition: Home 02/25/2025 Travel from Last 3 Months Social History Tobacco Use Types Packs/Day Years Used Date Smoking Tobacco: Never Assessed Childcare Answer Date Recorded Childcare Unknown 03/25/2019 Employment Answer Date Recorded Employment Unknown 03/25/2019 Comments Unknown Sex and Gender Information Value Date Recorded Sex Assigned at Not on file Legal Sex Female 11:26 AM EDT Gender Identity Not on file Sexual Orientation Not on file Plan of Treatment Health Maintenance Due Date Last Done Comments Depression Screening 1997 Tobacco Screening 1997 Adult BMI Screening 2003 Pap Smear 2006 Influenza Vaccine 06/14/2025 08/19/2009, 07/30/2007 DTaP,Tdap and Td Vaccines (3 - Td or Tdap) 05/04/2030 05/04/2020, 04/02/2010 Medical Devices Not on file Procedures Procedure Name Priority Date/Time Associated Diagnosis Comments [place] ESOPHAGUS Routine 02/25/2025 9:21 AM EDT Dysphagia, unspecified type from Last 3 Months Results * Fluoroscopy esophagus (02/25/2025 9:21 AM [...] AM Procedure Note David Adair MD - 02/25/2025 ESOPHAGRAM COMPARISON: None. HISTORY: Dysphagia, difficulty swallowing, [...] David Adair MD on 02/25/2025 10:08 AM us Cory Rodríguez MD IMG FLUOROSCOPY ORDERABLES Trina leija Result from Last [address] [place] [address] [place] [address]
[2025-03-12 10:10] LABS: Age Gdln ACOG Testing Note (.); HPV Aptima Negative (Negative); IGP, Aptima HPV, rfx 16/18,45 Note (.)
== END 2025-03-09 12:21 | disposition home or self-care (01) ==
LOC: LAB 12:20
PROVIDERS: PCP Family Medicine; Visit Provider Obstetrics & Gynecology
DX: Z01.419 Encounter for gynecological examination (general) (routine) without abnormal findings (principal)
CPT/HCPCS: 87624; 88175

== ENCOUNTER 2025-07-10 10:28 | Emergency (ER) | payer BC, SELFPAY ==
--- OUTSIDE RECORDS SUMMARY | 2025-05-06 08:53 | XMS_ITS ---
Author Name Auto Generated Organization [facility] Care Team Providers Care Pulp Mill Supervisor Name Role Phone JOVANY OCONNOR Attending Unavailable FRANCOISE WARNER Attending Unavailable DANO BECKFORD Referring Unavailable JOVANY OCONNOR Attending Unavailable ELVIN, JOVANY Attending Unavailable JOVANY OCONNOR Attending Unavailable DANO BECKFORD Referring Unavailable PROBLEMS DATE TYPE CONDITION / CODE ATTENDING STATUS MAMTA RCE 02/25/2025 Unknown Dysphagia, unspe cified / R13.10(ICD-10) NA Active [facility] PROCEDURES No Procedure Records Found RESULTS [place] ESOPHAGUS Observed: 02/25/2025 8:51 AM Status: COMPLETED Source: [facility] [place] ESOPHAGUS ESOPHAGRAM COMPARISON: None. HISTORY: Dysphagia, difficulty swallowing, [...] David Adair MD on 02/25/2025 10:08 AM ALLERGIES DATE TYPE / CODE NAME / CODE REACTION SEVERITY SOURCE Drug Class/948962095(S NOMED CT) NO ALLERGY INFORMATION AVAILABLE [facility] ENCOUNTERS ADMIT/DISCHARGE ACCOUNT NUMBER ADMITTING ENCOUNTER CLASS LOCATION SOURCE 05/06/2025/05/06/20 [id number] Ambulatory Building:[facility] 04/06/2025/04/06/20 [id number] Ambulatory Building:[facility] 03/09/2025/03/09/20 [id number] Ambulatory Building:[facility] 02/25/2025/02/26/20 [id number] [facility] 02/09/2025/02/10/20 [id number] Ambulatory Building:[facility] 11/30/2024/11/30/19 [id number] Ambulatory Building:[facility] EPIC PAYERS ENCOUNTER GUARANTOR PAYER SUBSCRIBER SOURCE 05/06/2025 MAGED Queen MATTERDOB: [place], [place] [address]Glp: () Primary Insurance:[facility] licy Number: [id number] ctive Date:2022-07-02 MAGED Queen MATTERDOB: [id number] [place] [address] [facility] 04/06/2025 MAGED Queen MATTERDOB: [place], [place] [address]Mfj: (HP) Primary Insurance:[facility] licy Number: [id number] ctive Date:2022-07-02 MAGED BURKSDOB: [id number] [place] [address] [facility] 03/09/2025 MAGED BURKSDOB: [place], [place] [address]Ofu: (HP) Primary Insurance:BCBSPo licy Number: [id number] ctive Date:2022-07-02 MAGED Queen JOSEB: [id number] [place] [address] [facility] EPIC 02/25/2025 MAGED MINOR MATTERDOB: [place], [place] [address]Aae: (HP) Primary Insurance:BCBS OUT OF STATE PPO/TRUSTPolicy Number: [id number] ctive Date:2022-07-02 MAGED MINOR KIMMIEDOB: [id number] [place], [place] [address]Mob: (HP) [facility] 02/09/2025 MAGED Bernice BURKSDOB: [place], [place] [address]Ufj: (HP) Primary Insurance:BCBSPo licy Number: [id number] ctive Date:2022-07-02 MAGED Queen JOSEB: [id number] [place] [address] [facility] EPIC 11/30/2024 MAGED Queen KIMMIEDOB: [place], [place] [address]Uhw: (HP) Primary Insurance:BCBSPo licy Number: [id number] ctive Date:2022-07-02 MAGED Queen KIMMIEDOB: [id number] [place] [address] [facility] EPIC
[2025-07-10 10:35] VITALS: BP 158/92; PULSE 85; TEMP 36.8; O2SAT 98; BMI 30.8
--- NOTE | 2025-07-10 10:54 | CT_ITS ---
The [address] [address] Patient Name: MAGED BURKS MRN: [id number] date: 1985 Sex: F Assigned Patient Location: ED.MAIN Current Patient Location: ED.MAIN Accession/Order Number: [id number] Exam Date: 07/10/2025 11:15 Report Date: 07/10/2025 11:43 At the request of: KELLY FARR MD Procedure: CT cervical spine wo con CT head/brain wo con, CT cervical spine wo con 07/10/2025 11:40 AM SIGNS AND SYMPTOMS: Pain at the base of the skull after injury TECHNIQUE:Multi-detector CT axial slices of the brain and cervical spine were obtained without IV contrast. Helical,sagittal, coronal, and 3-D reconstructions of the cervical spine were performed. CT was performed with one or more of the following dose reduction techniques: Automated exposure control, adjustment of the mA and/or kV according to patient size, or use of iterative reconstruction technique. COMPARISON: 01/24/2024 FINDINGS: Noncontrast head CT: There is no shift of the midline structures, acute intracranial bleeding, mass effects, or evidence of acute ischemia. The ventricular system is normal in size. The brainstem and the cerebellum are unremarkable. The visualized intraorbital contents, the visualized paranasal sinuses, and the infratemporal soft tissues show no acute abnormality. The osseous structures in the skull base and the calvarium show no abnormality. Cervical spine: There is preservation of the vertebral body heights and intervertebral discs. No fractures or dislocations are seen. The alignment of the cervical spine is normal. The craniocervical junction and atlantoaxial joint are within normal limits. The prevertebral soft tissues are within normal limits. The paraspinous soft tissues are within normal limits. The lung apices are unremarkable. CT/CT cervical spine wo con IMPRESSION: No acute intracranial pathology. No acute cervical spine injury. Impression dictated by: Sawyer Sun M.D. 07/10/2025 11:43 AM Dictation Location: [place] [address] Electronically authenticated by: [id number] Y Date: 07/10/2025 11:43
--- NOTE | 2025-07-10 10:54 | CT_ITS ---
The [address] [address] Patient Name: MAGED BURKS MRN: [id number] date: 1985 Sex: F Assigned Patient Location: ED.MAIN Current Patient Location: ED.MAIN Accession/Order Number: [id number] Exam Date: 07/10/2025 11:15 Report Date: 07/10/2025 11:43 At the request of: KELLY FARR MD Procedure: CT cervical spine wo con CT head/brain wo con, CT cervical spine wo con 07/10/2025 11:40 AM SIGNS AND SYMPTOMS: Pain at the base of the skull after injury TECHNIQUE:Multi-detector CT axial slices of the brain and cervical spine were obtained without IV contrast. Helical,sagittal, coronal, and 3-D reconstructions of the cervical spine were performed. CT was performed with one or more of the following dose reduction techniques: Automated exposure control, adjustment of the mA and/or kV according to patient size, or use of iterative reconstruction technique. COMPARISON: 01/24/2024 FINDINGS: Noncontrast head CT: There is no shift of the midline structures, acute intracranial bleeding, mass effects, or evidence of acute ischemia. The ventricular system is normal in size. The brainstem and the cerebellum are unremarkable. The visualized intraorbital contents, the visualized paranasal sinuses, and the infratemporal soft tissues show no acute abnormality. The osseous structures in the skull base and the calvarium show no abnormality. Cervical spine: There is preservation of the vertebral body heights and intervertebral discs. No fractures or dislocations are seen. The alignment of the cervical spine is normal. The craniocervical junction and atlantoaxial joint are within normal limits. The prevertebral soft tissues are within normal limits. The paraspinous soft tissues are within normal limits. The lung apices are unremarkable. CT/CT head/brain wo con IMPRESSION: No acute intracranial pathology. No acute cervical spine injury. Impression dictated by: Sawyer Sun M.D. 07/10/2025 11:43 AM Dictation Location: [place] [address] Electronically authenticated by: [id number] Y Date: 07/10/2025 11:43
--- NOTE | 2025-07-10 10:55 | ED_ITS ---
HPI HPI - General Adult General Chief complaint: Neck Pain/Injury Stated complaint: HEAD AND NECK.. INJURY MONTHS AGO Time Seen by Provider: 07/10/25 10:37 Source: patient Mode of arrival: walk-in History of Present Illness HPI narrative: 40-year-old female presents for pain at the base of her head in the back of her neck. Several months ago she was walking her large dog and the leash got pulled on in her arm and her shoulder got pulled on. She subsequently had pain and she saw her family doctor about it who did some x-rays of her shoulder and C-spine. The C-spine x-ray showed degenerative changes. The pain seems to be getting worse but there is been no new trauma. No weakness or numbness in her hands. Related Data Home Medications ?Medication ?Instructions ?Recorded ?Confirmed phentermine 37.5 mg tablet mg 07/10/25 Previous Rx's ?Medication ?Instructions ?Recorded diclofenac sodium 75 mg 75 mg PO BID PRN pain #20 t abs 01/12/24 tablet,delayed release acetaminophen 300 mg-codeine 30 mg 1 tab PO Q6H PRN pa in 5 days #20 07/10/25 tablet tabs ibuprofen 800 mg tablet 800 mg PO Q8H PRN pain #20 t abs 07/10/25 methocarbamol 750 mg tablet 750 mg PO Q8H #20 tabs Allergies Allergy/AdvReac Type Severity Reaction Status Date / Time No Known Drug Allergies Allergy Verified 01/12/24 10:34 Review of Systems ROS Narrative A ten point review of systems is negative except as noted above. PFSH PFSH Social History Little interest or pleasure in doing things: not at all Feeling down, depressed, or hopeless: not at all Exam Narrative Exam Narrative: Nurses note and vital signs reviewed and patient is not hypoxic. General:The patient appears well and in no apparent distress.Patient is resting comfortably on cart. Skin:Warm, dry, no pallor noted.There is no rash noted. Head:Normocephalic, atraumatic; no swelling or erythema or bruise or rash on her head or neck. Eye: Normal conjunctiva, no drainage Ears, Nose, Mouth, and Throat: oral mucosa is moist. Nares patent. Cardiovascular:Regular Rate and Rhythm Respiratory:Patient is in no distress, no accessory muscle use, lungs are clear to auscultation, no wheezing, rales or rhonchi Back:non-tender, including the cervical spine GI: Soft and nontender Musculoskeletal: The patient has no evidence of calf tenderness, no pitting edema, symmetrical pulses noted bilaterally Neurological:A&O, normal speech; upper and lower extremity strength 5 out of 5 and symmetric Psychiatric:Cooperative, tearful at times Constitutional Vital Signs, click to edit/add: Last Vital Signs Temp 98.3 F 07/10/25 10:35 Pulse 85 07/10/25 10:35 Resp 18 07/10/25 10:35 BP 158/92 H 07/10/25 10:35 Pulse Ox 98 07/10/25 10:35 O2 Del Method Room Air 07/10/25 10:35 Course Vital Signs Vital signs: Vital Signs Temperature 98.3 F 07/10/25 10:35 Pulse Rate 85 07/10/25 10:35 Respiratory Rate 18 07/10/25 10:35 Blood Pressure 158/92 H 07/10/25 10:35 Pulse Oximetry 98 07/10/25 10:35 Oxygen Delivery Method Room Air 07/10/25 10:35 Temperature 98.3 F 07/10/25 10:35 Pulse Rate 85 07/10/25 10:35 Respiratory Rate 18 07/10/25 10:35 Blood Pressure 158/92 H 07/10/25 10:35 Pulse Oximetry 98 07/10/25 10:35 Oxygen Delivery Method Room Air 07/10/25 10:35 Medical Decision Making MDM Narrative Medical decision making narrative: CTs of head and neck are negative and she will be treated symptomatically. Follow-up with her PCP. Treatment diagnosis and follow-up were discussed with the patient. Imaging Data CT scan - head: Radiologist's impression: ITS Impressions Cervical Spine CT 07/10/25 10:54 IMPRESSION: No acute intracranial pathology. No acute cervical spine injury. Impression dictated by: Sawyer Sun M.D. 07/10/2025 11:43 AM Dictation Location: The [employer] Electronically authenticated by: [id number] Y Date: 07/10/2025 11:[address] 07/10/25 10:54 IMPRESSION: No acute intracranial pathology. No acute cervical spine injury. Impression dictated by: Sawyer Sun M.D. 07/10/2025 11:43 AM Dictation Location[facility] Electronically authenticated by: [id number] Y Date: 07/10/2025 11:43 Discharge Plan Discharge Chief Complaint: Neck Pain/Injury Clinical Impression: Cervical muscle pain Patient Disposition: Home, Self-Care Time of Disposition Decision: 12:10 Condition: Good Mode of Transportation: Private Vehicle Prescriptions / Home Meds: New acetaminophen-codeine 300-30 mg tablet 1 tab PO Q6H PRN (Reason: pain) 5 Days Qty: 20 0RF ibuprofen 800 mg tablet 800 mg PO Q8H PRN (Reason: pain) Qty: 20 0RF methocarbamol 750 mg tablet 750 mg PO Q8H Qty: 20 0RF No Action phentermine 37.5 mg tablet diclofenac sodium 75 mg tablet,delayed release (DR/EC) 75 mg PO BID PRN (Reason: pain ) Qty: 20 0RF Print Language: Wolof Instructions: Acute Neck Pain (ED) Referrals: Cory Rodríguez MD [Primary Care Provider, Family Practice] - 1 week
[2025-07-10 12:22] VITALS: BP 124/88; PULSE 67; TEMP 36.9; O2SAT 98
== END 2025-07-10 12:24 | disposition home or self-care (01) ==
PROVIDERS: Emergency Provider Emergency Medicine; PCP Family Medicine
DX: M54.2 Cervicalgia (principal)
CPT/HCPCS: 70450; 72125; 76376; 99284

== ENCOUNTER 2025-07-23 10:03 | Outpatient (OUT) | payer BC, SELFPAY ==
--- OUTSIDE RECORDS SUMMARY | 2025-07-23 10:05 | XMS_ITS | Patient Health Record ---
Author Organization The [facility] in [place] Address [address] [place] [address] Care Team Providers Care Manufacturing Controller Name Role Phone Regino Rodríguez Primary Care Provider Allergies No Known Allergies Results Component Value Reference Range Notes GLYCOHEMOGLOBIN A1C Reviewed date:01/13/2025 07:47:55 PM Interpretation: Performing Lab: Notes/Report: The [facility] , Glycohemoglobin A1C 5.5 4.5-6.2 % ADA THERAPEUTIC TARGET < 7.0 > 7.0 ADA RECOMMENDED LIMIT 4.0 - 6.0 ACTION SUGGESTED Estimated Average Glucose 111 Performing Lab: see note ML - The [facility] LB MM tomosynthesis screening B I Reviewed date:01/27/2025 08:02:26 PM Interpretation: Performing Lab: Notes/Report: Source Facility: [facility]-[address] [place] [address] [place] [address] Mammography Report Signed Patient: MAGED MAHAJAN MR#: [id number] : 1985 Acct:[id number] Age/Sex: 39 / F ADM Date: 01/27/25 Loc: MAMMO Attending Dr: Nestor Barrera D.O. Ordering Physician: Nestor Barrera D.O. Results: Date of Service: 01/27/25 Follow Up: Procedure(s): MM tomosynthesis screening BI Accession Number(s): [id number] cc: Nestor Barrera D.O.; Dano Rodríguez M.D. Patient Name: MAGED MAHAJAN MR#: [id number] : 1985 Exam Date: 01/27/2025 Ordering Doctor: [...] colon cancer at age 72. LOCATION: [facility] BREAST COMPOSITION: The breasts are [...] Signed By: 01/27/25 1418 DD/ 1417 TD/TT: Surface Lay Out Technician: XR cervical spine 2-3V Reviewed date:02/23/2025 08:45:24 AM Interpretation: Performing Lab: Notes/Report: Source Facility: [place] [address] [place] [address] XRay Report Signed Patient: MAGED MAHAJAN MR#: [id number] : 1985 Acct:[id number] Age/Sex: 39 / F ADM Date: 02/22/25 Loc: RAD Attending Dr: Dano Rodríguez M.D. Ordering Physician: Dano Rodríguez M.D. Date of Service: 02/22/25 Procedure(s): XR cervical spine 2-3V Accession Number(s): [id number] cc: Dano Rodríguez M.D. [place] [id number] Patient Name: MAGED MAHAJAN MRN: [id number] date: 1985 Sex: F Assigned Patient Location: [facility] Current Patient Location: [facility] Accession/Order Number: [id number] Exam Date: 02/22/2025 22:37 Report Date: 02/22/2025 22:39 At the request of: DANO RODRÍGUEZ MD Procedure: XR cervical spine 2-3V 3 viewscervical spine HISTORY: Right neck pain. COMPARISON: None POSTOPERATIVE CHANGES: None BONY ALIGNMENT: Adequate HYPERMOBILITY::No bending imaging. LISTHESIS:None FRACTURE: None DISC DEGENERATION: C5-6 mild disc space narrowing with endplate spurring. FACETS: Unremarkable FORAMEN: Unremarkable. DENS: Intact CRANIOCERVICAL JUNCTION: Unremarkable SOFT TISSUES: Unremarkable XR/XR cervical spine 2-3V IMPRESSION: No acute findings. Straightening secondary patient positioning or spasm. Mild C5-6 degeneration. Impression dictated by: Jeremy Bassett M.D. 02/22/2025 10:39 PM Dictation Location: [place] [address] Electronically authenticated by: [id number] Y Date: 02/22/2025 22:39 Dictated By: Jeremy Bassett D.O. Signed By: 02/22/252241 DD/ 38 TD/TT: Surface Lay Out Technician: XR shoulder RT min 2V Reviewed date:02/23/2025 08:45:24 AM Interpretation: Performing Lab: Notes/Report: Source Facility: [place] [address] [place] [address] XRay Report Signed Patient: MAGED MAHAJAN MR#: [id number] : 1985 Acct:[id number] Age/Sex: 39 / F ADM Date: 02/22/25 Loc: RAD Attending Dr: Dano Rodríguez M.D. Ordering Physician: Dano Rodríguez M.D. Date of Service: 02/22/25 Procedure(s): XR shoulder RT min 2V Accession Number(s): [id number] cc: Dano Rodríguez M.D. [place] [id number] Patient Name: MAGED MAHAJAN MRN: [id number] date: 1985 Sex: F Assigned Patient Location: [facility] Current Patient Location: [facility] Accession/Order Number: [id number] Exam Date: 02/22/2025 22:39 Report Date: 02/22/2025 22:40 At the request of: DANO RODRÍGUEZ MD Procedure: XR shoulder RT min 2V 3 views right shoulder plain film HISTORY: Right shoulder injury. Continued pain. COMPARISON: None ACUTE FINDINGS: None DEGENERATIVE CHANGE: Unremarkable SOFT TISSUE FINDINGS: Focal calcification of the rotator cuff consistent with calcific tendinopathy. JOINT EFFUSION: None POSTOP CHANGES: None BONY MINERALIZATION: Adequate XR/XR shoulder RT min 2V IMPRESSION: No acute displaced fracture. Calcific rotator cuff tendinopathy. Impression dictated by: Jeremy Bassett M.D. 02/22/2025 10:40 PM Dictation Location: [place] [address] Electronically authenticated by: [id number] Y Date: 02/22/2025 22:40 Dictated By: Jeremy Bassett D.O. Signed By: 02/22/252242 DD/ 39 TD/TT: Surface Lay Out Technician: CT head/brain wo con Reviewed date:07/10/2025 02:34:26 PM Interpretation: Performing Lab: Notes/Report: Source Facility: [place] [address] [place] [address] CT Scan Report Signed Patient: MAGED MAHAJAN MR#: [id number] : 1985 Acct:[id number] Age/Sex: 40 / F ADM Date: 07/10/25 Loc: ER Attending Dr: Ordering Physician: Kelly Farr M.D. Date of Service: 07/10/25 Procedure(s): CT head/brain wo con Accession Number(s): [id number] cc: Dano Rodríguez M.D. [place] [address] Patient Name: MAGED MAHAJAN MRN: [id number] date: 1985 Sex: F Assigned Patient Location: ED[facility]MAIN Current Patient Location: [facility] Accession/Order Number: [id number] Exam Date: 07/10/2025 11:15 Report Date: 07/10/2025 11:43 At the request of: KELLY FARR MD Procedure: CT cervical spine wo con CT head/brain wo con, CT cervical spine wo con 07/10/2025 11:40 AM SIGNS AND SYMPTOMS: Pain at the base of the skull after injury TECHNIQUE:Multi-detector CT axial slices of the brain and cervical spine were obtained without IV contrast. Helical,sagittal, coronal, and 3-D reconstructions of the cervical spine were performed. CT was performed with one or more of the following dose reduction techniques: Automated exposure control, adjustment of the mA and/or kV according to patient size, or use of iterative reconstruction technique. COMPARISON: 01/24/2024 FINDINGS: Noncontrast head CT: There is no shift of the midline structures, acute intracranial bleeding, mass effects, or evidence of acute ischemia. The ventricular system is normal in size. The brainstem and the cerebellum are unremarkable. The visualized intraorbital contents, the visualized paranasal sinuses, and the infratemporal soft tissues show no acute abnormality. The osseous structures in the skull base and the calvarium show no abnormality. Cervical spine: There is preservation of the vertebral body heights and intervertebral discs. No fractures or dislocations are seen. The alignment of the cervical spine is normal. The craniocervical junction and atlantoaxial joint are within normal limits. The prevertebral soft tissues are within normal limits. The paraspinous soft tissues are within normal limits. The lung apices are unremarkable. CT/CT head/brain wo con IMPRESSION: No acute intracranial pathology. No acute cervical spine injury. Impression dictated by: Sawyer Sun M.D. 07/10/2025 11:43 AM Dictation Location: [place] [address] Electronically authenticated by: [id number] Y Date: 07/10/2025 11:43 Dictated By: Sawyer Sun M.D. Signed By: 07/10/25 1146 DD/ 1143 TD/TT: Surface Lay Out Technician: CT cervical spine wo con Reviewed date:07/10/2025 02:34:26 PM Interpretation: Performing Lab: Notes/Report: Source Facility: [place] [address] [place] [address] CT Scan Report Signed Patient: MAGED MAHAJAN MR#: [id number] : 1985 Acct:[id number] Age/Sex: 40 / F ADM Date: 07/10/25 Loc: ER Attending Dr: Ordering Physician: Kelly Farr M.D. Date of Service: 07/10/25 Procedure(s): CT cervical spine wo con Accession Number(s): [id number] cc: Dano Rodríguez M.D. [place] [address] Patient Name: MAGED MAHAJAN MRN: [id number] date: 1985 Sex: F Assigned Patient Location: ED.MAIN Current Patient Location: ED[facility]MAIN Accession/Order Number: [id number] Exam Date: 07/10/2025 11:15 Report Date: 07/10/2025 11:43 At the request of: KELLY FARR MD Procedure: CT cervical spine wo con CT head/brain wo con, CT cervical spine wo con 07/10/2025 11:40 AM SIGNS AND SYMPTOMS: Pain at the base of the skull after injury TECHNIQUE:Multi-detector CT axial slices of the brain and cervical spine were obtained without IV contrast. Helical,sagittal, coronal, and 3-D reconstructions of the cervical spine were performed. CT was performed with one or more of the following dose reduction techniques: Automated exposure control, adjustment of the mA and/or kV according to patient size, or use of iterative reconstruction technique. COMPARISON: 01/24/2024 FINDINGS: Noncontrast head CT: There is no shift of the midline structures, acute intracranial bleeding, mass effects, or evidence of acute ischemia. The ventricular system is normal in size. The brainstem and the cerebellum are unremarkable. The visualized intraorbital contents, the visualized paranasal sinuses, and the infratemporal soft tissues show no acute abnormality. The osseous structures in the skull base and the calvarium show no abnormality. Cervical spine: There is preservation of the vertebral body heights and intervertebral discs. No fractures or dislocations are seen. The alignment of the cervical spine is normal. The craniocervical junction and atlantoaxial joint are within normal limits. The prevertebral soft tissues are within normal limits. The paraspinous soft tissues are within normal limits. The lung apices are unremarkable. CT/CT cervical spine wo con IMPRESSION: No acute intracranial pathology. No acute cervical spine injury. Impression dictated by: Sawyer Sun M.D. 07/10/2025 11:43 AM Dictation Location: [place] [address] Electronically authenticated by: [id number] Y Date: 07/10/2025 11:43 Dictated By: Sawyer Sun M.D. Signed By: 07/10/25 1146 DD/ 1143 TD/TT: Surface Lay Out Technician: TSH Reviewed date:01/13/2025 07:47:55 PM Interpretation: Performing Lab: Notes/Report: [facility] , Thyroid Stimulating Hormone 2.565 0.358-3.740 u IU/mL Performing Lab: see note ML - [facility] LB T4 Reviewed date:01/13/2025 07:47:55 PM Interpretation: Performing Lab: Notes/Report: [facility] , T4 Thyroxine 6.30 4.80-13.90 ug/dL Performing Lab: see note ML - [facility] LB PROF 14(COMP METB) Reviewed date:01/13/2025 07:47:55 PM Interpretation: Performing Lab: Notes/Report: [facility] , Sodium 140 136-145 mmol/L Potassium 3.8 3.5-5.1 mmol/L Chloride 103 98-107 mmol/L Carbon Dioxide 25.9 21.0-32.0 mmol/L Anion Gap 14.9 Glucose 101 74-106 mg/dL Blood Urea Nitrogen 12.0 7.0-18.0 mg/dL Creatinine 0.85 0.55-1.02 mg/dL Estimated GFR ( Justine >60 >=60 mL/min/1.73m 2 Estimated GFR (Non- Patsy >60 >=60 mL/min/1.73m 2 BUN Creatinine Ratio 14.1 Calcium 9.1 8.5-10.1 mg/dL Bilirubin Total 0.8 0.2-1.0 mg/dL Aspartate Amino Transferase 15 15-37 U/L Alanine Aminotransferase 17 14-59 U/L Alkaline Phosphatase 62 46-116 U/L Total Protein 7.6 6.4-8.2 g/dL Albumin Level 3.6 3.4-5.0 g/dL Globulin 4.0 Albumin Globulin Ratio 0.9 Performing Lab: see note - [facility] LIPID PROFILE Reviewed date:01/13/2025 07:47:55 PM Interpretation: Performing Lab: Notes/Report: [facility] , Triglycerides 61 <=150 mg/dL Cholesterol 174 <=200 mg/dL HDL Cholesterol 65 40-60 mg/dL <40 mg/dl - HIGH CARDIOVASCULAR RISK > or =60 mg/dl - LOW CARDIOVASCULAR RISK LDL Cholesterol Calculated 97.0 <100 mg/dl OPTIMAL 160-189 mg/dl HIGH >190 mg/dl VERY HIGH 100-129 mg/dl NEAR OR ABOVE OPTIMAL 130-159 mg/dl BORDERLINE HIGH VLDL CHOLESTEROL 12.2 Chol HDL Ratio 2.7 3.3 - 4.4 LOW RISK 4.4 - 7.1 AVERAGE RISK 7.1 - 11.0 MODERATE RISK >11.0 HIGH RISK Performing Lab: see note - [facility] INSULIN Reviewed date:01/14/2025 05:22:56 PM Interpretation: Performing Lab: Notes/Report: [facility] , Insulin 9.5 2.6-24.9 uIU/mL Organic Preparation Analyst: Srini Dunaway PhD, Phone: [phone] Performed at: [facility] [address] [id number] Performing Lab: see note - [facility] LB FREE T3 Reviewed date:01/13/2025 07:47:55 PM Interpretation: Performing Lab: Notes/Report: [facility] , Free T3 3.00 2.18-3.98 pg/mL Performing Lab: see note - [facility] CBC AUTO DIFF Reviewed date:01/13/2025 07:47:55 PM Interpretation: Performing Lab: Notes/Report: [facility] , White Blood Count 5.1 4.0-11.0 10 3/uL Red Blood Count 4.32 4.20-5.40 10 6/uL Hemoglobin 12.2 12.0-16.0 g/dL Hematocrit 36.6 36.0-48.0 % Mean Corpuscular Volume 84.7 81.0-99.0 fL Mean Corpuscular Hemoglobin 28.2 26.7-34.0 pg Mean Corpuscular HGB Conc 33.3 29.9-35.2 g/dL Red Cell Distribution Width 12.6 11.0-15.0 % Platelet Count 244 150-450 10 3/uL Mean Platelet Volume 11.1 9.5-13.5 fL Neutrophils Percent Auto 55.3 43.0-75.0 % Lymphocytes Percent Auto 32.3 20.5-60.0 % Monocytes Percent Auto 10.8 1.7-12.0 % Eosinophils Percent Auto 1.0 0.9-7.0 % Basophils Percent Auto 0.4 0.2-2.0 % Immature Granulocytes Pct Auto 0.2 0.0-0.5 % Neutrophils Absolute Auto 2.8 1.4-6.5 10 3/uL Lymphocytes Absolute Auto 1.7 1.2-3.8 10 3/uL Monocytes Absolute Auto 0.6 0.3-0.8 10 3/uL Eosinophils Absolute Auto 0.1 0.0-0.7 10 3/uL Basophils Absolute Auto 0.0 0.0-0.1 10 3/uL Immature Granulocytes Abs Auto 0.01 0.00-0.03 10 3/uL Performing Lab: see note ML - [facility] US THYROID Reviewed date:01/27/2025 09:52:55 AM Interpretation: Performing Lab: Notes/Report: Source Facility: [place] [address] [place] [address] Ultrasound Report Signed Patient: MAGED MAHAJAN MR#: [id number] : 1985 Acct:[id number] Age/Sex: 39 / F ADM Date: 01/27/25 Loc: US Attending Dr: Dano Rodríguez M.D. Ordering Physician: Dano Rodríguez M.D. Date of Service: 01/27/25 Procedure(s): US thyroid Accession Number(s): [id number] cc: Dano Rodríguez M.D. [address] [address] Patient Name: MAGED MAHAJAN MRN: [id number] date: 1985 Sex: F Assigned Patient Location: US Current Patient Location: [facility] Accession/Order Number: [id number] Exam Date: 01/27/2025 09:12 Report Date: 01/27/2025 09:17 At the request of: DANO RODRÍGUEZ MD Procedure: US thyroid THYROID ULTRASOUND CLINICAL DATA: Hypothyroidism and left posterior lump. COMPARISON: None The right thyroid lobe measures 5.4 x 1.3 x 1.0 cm. The left lobe measures 3.1 x 1.3 x 0.9 cm. The isthmus measures 2 - 3 mm. At the midpole the left thyroid lobe, there is a predominantly cystic lesion with mural nodularity measuring 10 x 4 x 8 mm. This may be a colloid cyst. No other thyroid nodularity is seen. At the site of patient's palpable lump at the posterior left upper neck, there is a subcutaneous reniform nodule with echogenic hilus compatible with a lymph node. It measures 13 x 5 x 9 mm. In size US/US thyroid IMPRESSION: LEFT COLLOID CYST. LYMPH NODE AT THE SITE OF PALPABLE CONCERN AT THE POSTERIOR UPPER LEFT NECK. Impression dictated by: Kathrine Adams M.D.01/27/2025 9:17 AM Dictation Location: [place] [address] Electronically authenticated by: [id number] Y Date: 01/27/2025 09:17 Dictated By: Kathrine Adams M.D. Signed By: 01/27/25919 DD/ 6 TD/TT: Surface Lay Out Technician: Marie NASSAR HPV,Age Gdln Reviewed date:03/14/2025 04:26:47 PM Interpretation: Performing Lab: Notes/Report: BRUSH-SPATULA CERVIX ENDOCERVIX [facility] , Age Gdln ACOG Testing Note . 01 =G [facility] [place] ------ FLAG LEGEND: No. of containers..01 ThinPrep Vial L-Low Normal,H-High Normal,LL-Alert Low,HH-Alert High ------ Clinician Provided Cytology Information Samy BUI Cait... 30-65 01 TESTS RESULT FLAG UNITS REF RANGE LAB Source.............Cervix;E ndocervix [address] [place] [address] <-Panic Low,>-Panic High,A-Abnormal,AA-Critical Abnormal Jenelle Nuñez MD, Performed at: ------ IGP, Aptima HPV, rfx 16/18,45 Note . Test Methodology: Note 02 TESTS RESULT FLAG UNITS REF RANGE LAB should not be used as the sole means of detecting cervical HPV Genotype Reflex Note 02 02 [facility] The Pap smear is a screening test designed to aid in the Tina Hicks [employer] ([facility]) cancer. Both false-positive and false-negative reports do [address] [place] [address] detection of premalignant and malignant conditions of the . 02 NEGATIVE FOR INTRAEPITHELIAL LESION OR MALIGNANCY. ------ FLAG LEGEND: Bacilio Urias [employer] ([facility]) Satisfactory for evaluation. Endocervical and/or squamous metaplastic Jenelle Nuñez MD, Performed at: L-Low Normal,H-High Normal,LL-Alert Low,HH-Alert High Note: Note 02 QC reviewed by: 02 cells (endocervical component) are present. THIS SPECIMEN WAS RESCREENED PART OF OUR SUPERVISOR FORMING AND TEMPERING PROGRAM. This liquid based ThinPrep(R) pap test was screened with ------ Criteria not met, HPV Genotype not performed. Specimen adequacy: 02 DIAGNOSIS: 02 <-Panic Low,>-Panic High,A-Abnormal,AA-Critical Abnormal Performed by: 02 ------ the use of an image guided system. occur. uterine cervix. It is not a diagnostic procedure and HPV Aptima Negative Negative Performed at: WB [facility] Performed at: =G - [facility] This nucleic acid amplification test detects fourteen high- risk HPV types (16,18,31,33,35,39,45,51,52 ,56,58,59,66,68) [address] [place] [phone] [place] [phone] Organic Preparation Analyst: Jenelle Nuñez MD, Phone: [phone] without differentiation. Organic Preparation Analyst: Jenelle Nuñez MD, Phone: [phone] Performing Lab: see note - [facility] LB Reason For Referral Diagnosis 1 Thyroid nodule (E04. 1) Referral Organization [facility] Referring Provider First Name Regino Referring Provider Last Name Anne Referring Provider Speciality [facility] radha Referred Provider Fatou Willson Referred Provider Specialty Otolaryngolo gy Referral Priority Routine Medications Medication SIG (Take, Route, Fr equency, Duration) Notes Start Date End Date Status Diclofenac Sodium 75 MG 1 tablet as need ed Orally Twice a day PRN 01/09/2024 Active Imitrex 100 MG 1 tablet at least 2 hours between doses as needed Orally Twice a day; Duration: 10 PRN 01/09/2024 Active Social History Tobacco Use: Social History Observation Description Date Details (start date - stop date) Never Smoker NA - NA Tobacco Use/Smoking Question Answer Notes Patient is a nonsmoker Alcohol Screen (Audit-C) Question Answer Notes Did you have a drink containing alcohol in the p ast year? No Points 0 Interpretation Negative AUDIT-C (Standard) Question Answer Notes Did you have a drink containing alcohol in the p ast year? No Points 0 Interpretation Negative Problems Problem Type SNOMED Code ICD Code Onset Dates Problem Status W/U Status Risk Notes Problem Cervical radiculopathy (51760771) Cervical radiculopathy (M54.12) Active confirmed Problem Neck pain (07273135) Neck pain (M54.2) Active confirmed Problem Migraine (73322246) Migraine (G43.909) Active confirmed Problem Sebaceous cyst (693439827) Sebaceous cyst (L72.3) Active confirmed Problem Thyroid nodule (228886278) Thyroid nodule (E04.1) Active confirmed Problem Allergic rhinitis (30611086) Allergic rhinitis (J30.9) Active confirmed Problem Well adult (523233606) Well adult (Z00.00) Active confirmed Problem Contusion of knee (99426837) Knee contusion (S80.00XA) Active confirmed Problem Difficulty swallowing (776874505) Difficulty swallowing (R13.10) Active confirmed Problem COVID-19 (480810395) COVID-19 (U07.1) Active confirmed Vital Signs Blood pressure diastolic 70 mm Hg 06/04/2025 Height 73 in 06/04/2025 Blood pressure systolic 112 mm Hg 06/04/2025 Weight 247 lbs 06/04/2025 BMI 32.58 kg/m2 06/04/2025 Encounters Encounter Location Date Provider Diagnosis [facility] [address] [place] [address] 09/28/[address] [facility] [address] [place] [address] 11/23/2024 Regino Rodríguez Acute non-recurrent sinusitis, unspecified location J01.90 [facility] [address] [place] [address] 12/15/[address] [facility] [address] [place] [address] 01/13/2025 Regino Hoy [facility] [address] [place] [address] 01/21/2025 Regino Hoy Hypothyroidism, unspecified E03.[address] [facility] [address] [place] [address] 01/27/2025 Regino Hoy Thyroid nodule E04.1 [place] [address] [place] [address] 02/22/2025 Regino Hoy Neck pain M54.2 ; Ri ght shoulder pain M25.511 and Difficulty swallowing R[address].10 [facility] [address] [place] [address] 02/23/2025 Regino Hoy Neck pain M54.[address] [place] [address] [place] [address] 09/09/2024 Regino Hoy Sebaceous cyst L72.3 [facility] [address] [place] [address] 11/18/2024 Regino Hoy Acute non-recurrent sinusitis, unspecified location J01.90 and Nasal congestion R09.[address] [place] [address] [place] [address] 01/01/2025 Regino Hoy Well adult Z00.[address] [address] 02/19/2025 Regino Hoy Allergic rhinitis J3 0.[address] [address] 06/04/2025 Regino Hoy Cervical radiculopat hy M54.12 Assessments Encounter Date Diagnosis (ICD Code) Assessment Notes Treatment Notes Treatment Clinical Notes Section Notes 01/01/2025 Well adult (ICD-10 - Z00.00) 02/19/2025 Allergic rhinitis (ICD-10 - J30.9) Roby - zyrte 06/04/2025 Cervical radiculopathy (ICD-10 - M54.12) Need MRI: been over 4 months, progressivly worse, now twih painito ar arm with loss of endurance in R arm - had x-ray, faileing on NSAIDS (motrina nd diclofenac) over last 4 months - had injury that was 6 weeks ago and progresive symtposm consistent with cervical radiculopathy 11/23/2024 Acute non-recurrent sinusitis, unspecified location (ICD-10 - J01.90) 01/21/2025 Hypothyroidism, unspecified (ICD-10 - E03.9) 01/21/2025 Lymphadenopathy (ICD-10 - R59.1) 01/27/2025 Thyroid nodule (ICD-10 - E04.1) 02/22/2025 Neck pain (ICD-10 - M54.2) 02/22/2025 Right shoulder pain (ICD-10 - M25.511) 09/09/2024 Sebaceous cyst (ICD-10 - L72.3) Set up with Dr Gemran if still there 11/18/2024 Acute non-recurrent sinusitis, unspecified location (ICD-10 - J01.90) Rest and drink more liquids, especially water. You may use a humidifier or vaporizer to help keep the drainage moist. Blca-yrr-lxhfmsd Nasal Saline may help the stuffy and runny nose. Use Ibuprofen and or Tylenol as needed for fever, chills, body aches or pain. Children 5 years old should not be given kzkp-dtq-mkbtghm cough and cold medications such as guaifenesin and dextromethorphan. If you're over age 5, you may try xoeb-zpc-celmnkl cold medications such as guaifenesin and dextromethorphan, or multi-symptom cold reliever such as Dayquil to help reduce the symptoms. Antibiotics have been prescribed. You should take these until completed and follow the directions. Antibiotics can sometimes cause upset stomach, and in rare cases, serious allergic reactions or serious gastrointestinal problems. If you start having severe abdominal pain, severe vomiting, or bloody diarrhea, you should be reevaluated by your physician or urgent care immediately. Follow up with your Primary Care Provider or return to clinic if symptoms do not improve within 3-5 days 02/23/2025 Neck pain (ICD-10 - M54.2) 11/18/2024 Nasal congestion (ICD-10 - R09.81) 02/22/2025 Difficulty swallowing (ICD-10 - R13.10) 06/04/2025 Other Recommended to rest and use a heating pad on the area. Take NSAIDs for pain as needed Plan Of Treatment Pending Test Test Name Order Date Barium Swallow 02/22/2025 CMP (COMPLETE METABOLIC PANEL) 4 HEMOGLOBIN A1C (GLYCO) 01/01/2025 HEMOGLOBIN A1C (GLYCO) 12/02/2023 IRON, TOTAL 12/02/2023 LIPID PANEL (CHOL/TRIG/HDL/LDL) 12/02/19 24 LIPID PANEL (CHOL/TRIG/HDL/LDL) 01/02/20 25 CBC WITH DIFF 12/02/2023 VITAMIN D, 25 LEVEL (TOTAL) 12/02/2023 MRI Brain w/o contrast 01/09/2024 MRI Cervical Spine w/o contrast * 2024 Insulin Level 12/02/2023 Insulin Level 01/01/2025 STOOL OCCULT BLOOD 01/01/2025 STOOL OCCULT BLOOD 12/02/2023 MRI CSPINE WO CON 06/04/2025 XR CSPINE 2_3 VIEWS 02/22/2025 THYROID PANEL (T4/TSH/FREE T3) 4 THYROID PANEL (T4/TSH/FREE T3) 5 THYROID PANEL (T4/TSH/FREE T3) 4 MM screening mammo BI 01/01/2025 XR SHOULDER 2+ VIEWS RIGHT 02/22/2025 US soft tissue head and neck 01/21/2025 CMP (COMP MET [place]) w/eGFR CKD-EPI 2024 CBC WITH DIFF 01/01/2025 Insurance Providers Payer Name Payer Address Payer Phone Subscriber Number Group Number Insured Name Patient Relationship to Insured Coverage Start Date Coverage End Date [employer] PPO PLUS LOCAL PLAN [address] [place] [phone] [id number] Maged Mahajan Self - patient is the insured Medical (General) History Medical History History ICD Code Lipoma of skin D17.30 Excessive sweating R61 Gardnerella vaginitis 616.10 Acute gastroenteritis K52.9 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
--- OUTSIDE RECORDS SUMMARY | 2025-07-23 10:05 | XMS_ITS | Clinical Summary ---
Author Organization [facility] tem Address [id number] [address] 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
--- NOTE | 2025-07-23 10:06 | MR_ITS ---
[facility] [place] [id number] Patient Name: MAGED BURKS MRN: [id number] date: 1985 Sex: F Assigned Patient Location: MRI Current Patient Location: MRI Accession/Order Number: [id number] Exam Date: 07/23/2025 10:30 Report Date: 07/23/2025 11:41 At the request of: DANO BECKFORD MD Procedure: MR cervical spine wo con EXAMINATION: MRI OF THE CERVICAL SPINE WITHOUT CONTRAST CLINICAL DATA: Chronic posterior neck pain radiating to the base of skull. Recent injury. COMPARISON: CT 07/10/2025 TECHNIQUE: Multiecho imaging was performed in the sagittal and axial plane without contrast administration. FINDINGS: Alignment is maintained on the sagittal images. There is normal signal intensity within the imaged bone marrow. No compression fractures are present. There is a normal cervicomedullary junction. The cord is normal in caliber and signal intensity throughout its imaged course. There are some shotty posterior triangle lymph nodes. There is no significant disc bulge or herniation at any of the imaged levels. There is no central stenosis . There is mild uncovertebral joint hypertrophy at C5-6 . There is minimal associated asymmetric left foraminal encroachment. The remaining neural foramen are patent. MR/MR cervical spine wo con IMPRESSION: NO ACUTE BONY FINDINGS. NO DISC DISEASE OR STENOSIS. Impression dictated by: Kathrine Adams M.D. 07/23/2025 11:41 AM Dictation Location: [place] [address] Electronically authenticated by: [id number] Y Date: 07/23/2025 11:41
--- OUTSIDE RECORDS SUMMARY | 2025-07-23 10:07 | XMS_ITS | CCD ---
Author Organization [facility] Providers Care Caser Up Name Role Phone SEB WALLER Admitting Unavailable [...] Unavailable REQUEST, NONE LISTED Primary Care Unavaila Dano Gill MD Primary Care Provider [phone] DANO RODRÍGUEZ Referring Unavailable Dano Rodríguez MD Primary Care Provider [phone] JOVANY BARRERA Attending Unavailable FATOU WARNER Attending Unavailable DANO RODRÍGUEZ Referring Unavailable JOVANY BARRERA Attending Unavailable JOVANY BARRERA Attending Unavailable JOVANY BARRERA Attending Unavailable KEVIN DEL ROSARIO Attending Unavailable Medications Current Medications Medication Drug Class(es) Dates Sig (Normalized) Sig (Original) acyclovir 400 mg oral tablet (3 sources) Herpesvirus Nucleoside Analog DNA Polymerase Inhibitor, Herpes Simplex Virus Nucleoside Analog DNA Polymerase Inhibitor, Herpes Zoster Virus Nucleoside Analog DNA Polymerase Inhibitor Start: 05-19-2025 End: 07-18-2025 take 1 tablet by mouth in the morning acyclovir (Zovirax) 400 MG tablet Indications: Cold sore Take 1 tablet (400 mg) by mouth in the morning and 1 tablet (400 mg) before bedtime. 60 tablet 1 05/19/2025 07/14/2025 Discontinued (Therapy completed) clobetasol propionate 0.5 mg/ml topical solution (15 sources) Corticosteroid Start: 12-31-2024 clobetasol (Temovate) 0.05 % external solution APPLY ONCE DAILY TO AFFECTED AREAS ON EARS/SCALP, EARS NEEDED FOR SCALING, ITCHING, REDNESS. 12/31/2024 Active 24 hr metFORMIN hydrochloride 500 mg extended release oral tablet (20 sources) Biguanide Start: 04-06-2025 End: 04-06-2026 take 2 tablets by mouth every twenty-four hours at mealtime metFORMIN XR (Glucophage-XR) 500 MG 24 hr tablet Indications: Insulin resistance Take 2 tablets (1,000 mg) by mouth in the evening. Take with meals Do not crush, chew, or split. 60 tablet 11 04/06/2025 04/06/2026 Active Start: 01-14-2024 End: 03-09-2026 take 1 tablet by mouth every twenty-four hours at mealtime metFORMIN XR (Glucophage-XR) 500 MG 24 hr tablet Indications: Weight gain , BMI 34.0-34.9,adult Take 1 tablet (500 mg) by mouth in the evening. Take with meals Do not crush, chew, or split. 30 tablet 11 03/09/2025 03/09/2026 Active methocarbamol 750 mg oral tablet (2 sources) Muscle Relaxant methocarbamol (Robaxin) 750 MG tablet Take 750 mg by mouth in the morning and 750 mg at noon and 750 mg in the evening and 750 mg before bedtime. Active phentermine hydrochloride 37.5 mg oral tablet (20 sources) Sympathomimetic Amine Anorectic Start: End: take 1 tablet by mouth before mealtime phentermine (Adipex-P) 37.5 MG tablet Indications: Encounter for weight management Take 1 tablet (37.5 mg) by mouth in the morning. Take before meals. 90 tablet 05/06/2025 08/04/2025 Active sulfamethoxazole 800 mg / trimethoprim 160 mg oral tablet (2 sources) Dihydrofolate Reductase Inhibitor Antibacterial, Sulfonamide Antimicrobial Start: End: take 1 tablet by mouth once in the morning, then take 1 tablet by mouth once at bedtime sulfamethoxazole-tr imethoprim (Bactrim DS) 800-160 MG per tablet Indications: Bartholin's gland cyst Take 1 tablet by mouth in the morning and 1 tablet before bedtime. Do all this for 5 days. 10 tablet 11/30/2024 12/05/2024 Active SUMAtriptan 100 mg oral tablet (20 sources) Serotonin-1b and Serotonin-1d Receptor Agonist Start: Imitrex 100 MG tablet every 12 (twelve) hours 01/09/2024 Active Tapinarof (Vtama) 1 % cream (12 sources) Tapinarof (Vtama ) 1 % cream Apply 1 Units topically Daily Active Completed/Discontinued Medications Medication Drug Class(es) Dates Sig (Normalized) Sig (Original) 5 ml bupivacaine hydrochloride 5 mg/ml injection (8 sources) Amide Local Anesthetic Start: 07-14-2025 End: 07-14-2025 bupivacaine PF (Marcaine) 0.5 % injection 2 mL Start: 07-14-2025 End: 07-14-2025 2 mL, Injection, Once PRN Pr ocedure, Starting on Sat07/14/25 at 0956, For 1 dose diclofenac sodium 75 mg delayed release oral tablet (9 sources) Nonsteroidal Anti-inflammatory Drug Start: 01-09-2024 End: 07-06-2024 diclofenac (Voltaren) 75 MG EC tablet every 12 (twelve) hours 01/09/2024 07/06/2024 Discontinued (Therapy completed) End: 02-09-2025 DICLOFENAC SODIUM OP Use 75 mg in the mouth or throat 02/09/2025 Discontinued (Therapy completed) methylPREDNISolone acetate 20 mg/ml injectable suspension (13 sources) Corticosteroid Start: 07-14-2025 End: 07-14-2025 methylPREDNISolone Acetate (DEPO-Medrol) injection 40 mg Start: 07-14-2025 End: 07-14-2025 40 mg, Once PRN Procedure, S tarting on Sat07/14/25 at 0956, For 1 dose Start: 07-14-2025 End: 07-14-2025 methylPREDNISolone acetate ( DEPO-Medrol) injection 40 mg Start: 07-14-2025 End: 07-14-2025 40 mg, Intra-articular, Once PRN Procedure, Starting on Sat07/14/25 at 0955, For 1 dose Start: 07-06-2024 End: 11-30-2024 methylPREDNISolone (Medrol D ospak) 4 MG tablets Indications: Internal derangement of [...] Classification Problem Date Documented Da te Episodic/Chronic Administrative/social admission (4 sources) Patient encounter status; Translations: [Persons encountering health services in other specified circumstances] 04-06-2025 Episodic Anxiety disorders (20 sources) Generalized anxiety disorder; Translations: [Generalized anxiety disorder] Onset: 02-05-2025 02-05-2025 Chronic Inflammatory diseases of female pelvic organs (2 sources) Cyst of Bartholin's gland duct; Translations: [Cyst of Bartholin's gland] 11-30-2024 Episodic Joint disorders and dislocations; trauma-related (4 sources) Derangement of right knee; Translations: [Unspecified internal derangement of right knee] 06-08-2024 Chronic Lymphadenitis (2 sources) Cervical lymphadenopathy; Translations: [Localized enlarged lymph nodes] 02-09-2025 Episodic Other connective tissue disease (6 sources) Impingement syndrome of right shoulder region; Translations: [Impingement syndrome of right shoulder] 07-14-2025 Episodic Other connective tissue disease (6 sources) Calcific tendinitis of right shoulder; Translations: [Calcific tendinitis of right shoulder] 07-14-2025 Episodic Other gastrointestinal disorders (1 source) Dysphagia, unspecified; Translations: [Dysphagia, unspecified] Onset: 02-25-2025 Episodic Other non-traumatic joint disorders (2 sources) Derangement of right shoulder joint; Translations: [Other specific joint derangements of right shoulder, not elsewhere classified] 07-14-2025 Chronic Other non-traumatic joint disorders (4 sources) Instability of right shoulder joint; Translations: [Other instability, right shoulder] 07-14-2025 Episodic Other non-traumatic joint disorders (2 sources) Pain in right shoulder; Translations: [Pain in joint, shoulder region] 07-13-2025 Episodic Other nutritional; endocrine; and metabolic disorders (2 sources) Body mass index 30+ - obesity; Translations: [Body mass index (BMI) 34.0-34.9, adult] 03-09-2025 Chronic Other nutritional; endocrine; and metabolic disorders (2 sources) Insulin resistance; Translations: [Insulin resistance] 04-06-2025 Chronic Other nutritional; endocrine; and metabolic disorders (4 sources) Weight increased; Translations: [Abnormal weight gain] 03-09-2025 Episodic Other upper respiratory disease (1 source) Nasal congestion; Translations: [NASAL CONGESTION] Onset: 02-10-2023 Episodic Thyroid disorders (2 sources) Thyroid nodule; Translations: [Nontoxic single thyroid nodule] 02-09-2025 Chronic Unclassified (4 sources) CONTACT W/AND (SUSP) EXPOS COVID-19; Translations: [CONTACT W/AND (SUSP) EXPOS COVID-19] Onset: 05-31-2022 Unclassified (1 source) COUGH, UNSPECIFIED; Translations: [COUGH, UNSPECIFIED] Onset: 02-10-2023 Viral infection (1 source) COVID-19; Translations: [COVID-19] Onset: 02-10-2023 Past or Other Problems Problem Classification Problem Date Documented Da te Episodic/Chronic Fever of unknown origin (4 sources) Fever, unspecified; Translations: [FEVER UNSPECIFIED] Onset: 05-30-2022 Episodic Other connective tissue disease (16 sources) Foot pain; Translations: [Pain in unspecified foot] Onset: 02-05-2025 02-05-2025 Episodic Other non-traumatic joint disorders (2 sources) Pain in right knee; Translations: [Pain in joint, lower leg] 06-04-2024 Episodic Other upper respiratory infections (1 source) Acute recurrent frontal sinusitis; Translations: [ACUTE RECURRENT FRONTAL SINUSITIS] Onset: 05-29-2022 Episodic Residual codes; unclassified (1 source) Localized edema; Translations: [LOCALIZED EDEMA] Onset: 05-31-2022 Episodic Sprains and strains (16 sources) Shoulder strain; Translations: [Strain of unspecified muscle, fascia and tendon at shoulder and upper arm level, unspecified arm, initial encounter] Onset: 02-05-2025 02-05-2025 Episodic Unclassified (1 source) CONTACT W/AND (SUSP) EXPOS COVID-19; Translations: [CONTACT W/AND (SUSP) EXPOS COVID-19] Onset: 02-07-2023 Unclassified (2 sources) Acute pain of right shoulder 07-14-2025 Results Test Name Value Interpretation Reference Range Facility No Panel Informationon 07-14 ANDRES Nava 07/14/2025 10:01 AM Tendon Sheath Inj (CPT 81831 Only): right long head of biceps tendon sheath on 07/14/2025 9:56 AM Indications: pain, diagnostic and therapeutic benefit Details: 21 G needle, anterior approach Medications: 40 mg methylPREDNISolone Acetate 20 MG/ML; 2 mL bupivacaine PF 0.5 % Procedure, treatment alternatives, risks and benefits explained, specific risks discussed. Consent was given by the patient. Patient was prepped and draped in the usual sterile fashion. [facility] ANDRSE Nava 07/14/2025 10:01 AM L Inj/Asp: R subacromial bursa on 07/14/2025 9:55 AM Indications: pain Details: 21 G needle, posterior approach Medications: 40 mg methylPREDNISolone acetate 40 MG/ML; 1 mL bupivacaine PF 0.5 % Outcome: tolerated well, no immediate complications Utilizing aseptic technique with universal precautions . Pt given injection Right Shoulder SA space (Code 56500 RT) Procedure, treatment alternatives, risks and benefits explained, specific risks discussed. Consent was given by the patient. [facility] IGP,APTIMA HPV,AGE GDLNon AGE GDLN ACOG TESTING Note . [facility] Comment on above: TESTS RESULT FLAG UN ITS REF RANGE LAB Clinician Provided Cytology Information Source.............Cervix;Endocervix No. of containers..01 ThinPrep Vial Age Algo ACOG Cait... FLAG LEGEND: L-Low Normal,H-High Normal,LL-Alert Low,HH-Alert High <-Panic Low,>-Panic High,A-Abnormal,AA-Critical Abnormal Performed at: 01 =[address] [address] Jenelle Nuñez MD, HPV APTIMA Negative Negative [facility] Comment on above: This nucleic acid am plification test detects fourteen high- risk HPV types (16,18,31,33,35,39,45,51,52,56,58,59,66,68) without differentiation. Performed at: =[address] [id number] Sat Tutor: Jenelle Nuñez MD, Phone: [phone] Performed at: [address] [id number] Sat Tutor: Jenelle Nuñez MD, Phone: [phone] IGP, APTIMA HPV, RFX 16/18,45 Note . [facility] Comment on above: TESTS RESULT FLAG UN ITS REF RANGE LAB DIAGNOSIS: 02 NEGATIVE FOR INTRAEPITHELIAL LESION OR MALIGNANCY. THIS SPECIMEN WAS RESCREENED PART OF OUR VAT TENDER PROGRAM. Specimen adequacy: 02 Satisfactory for evaluation. Endocervical and/or squamous metaplastic cells (endocervical component) are present. Performed by: Fabby Urias, Delivery Table Feeder ([facility]) QC reviewed by: Fabby Hicks, Delivery Table Feeder ([facility]) . 02 Note: Note 02 The Pap smear is a screening test designed to aid in the detection of premalignant and malignant conditions of the uterine cervix. It is not a diagnostic procedure and should not be used as the sole means of detecting cervical cancer. Both false-positive and false-negative reports do occur. Test Methodology: Note 02 This liquid based ThinPrep(R) pap test was screened with the use of an image guided system. HPV Genotype Reflex Note 02 Criteria not met, HPV Genotype not performed. FLAG LEGEND: L-Low Normal,H-High Normal,LL-Alert Low,HH-Alert High <-Panic Low,>-Panic High,A-Abnormal,AA-Critical Abnormal Performed at: [address] [address] Jenelle Nuñez MD, BRUSH-SPATULA CERVIX ENDOCERVIX [facility] Urinalysis macro (dipstick) panel (U)on 03-09-2025 Bilirubin, UA Positive Negative - 4(70) +++ mg/dL [facility] Comment on above: small Blood, UA Negative Negative - 50 Gilles/mcL [facility] Clarity, UA Clear [facility] Color, UA Yellow [facility] Glucose, UA Negative Negative - 1999(110) ++++ mg/dL [facility] Interpretation and review of laboratory results Abnormal [facility] Ketones, UA Negative Negative - 160(16) ++++ mg/dL [facility] Leukocytes, UA Negative Negative - 500+++ Milka/mcL [facility] Nitrite, UA Negative Negative - Positive [facility] pH, UA 6 5 - 9 [facility] Protein, UA Negative Negative - 1999(20) ++++ mg/dL [facility] Spec Grav, UA 1.03 1 - 1.03 [facility] Urobilinogen, UA 1.0 0.2 - 12 mg/dL [facility] FL ESOPHAGUSon 02-25-2025 FL ESOPHAGUS FL ESOPHAGUS ESOPHAGRAM COMPARISON: None. HISTORY: Dysphagia, [...] David Adair MD on 02/25/2025 10:08 AM [facility] TOMOSYNTHESIS SCREENING B Ion 01-27-2025 [place] [address] Mammography Report Signed Patient: MAGED ARCINIEGA MR#: [id number] : 1985 Acct:[id number] Age/Sex: 39 / F ADM Date: 01/27/25 Loc: MAMMO Attending Dr: Jovany Barrera D.O. Ordering Physician: Jovany Barrera D.O. Results: Date of Service: 01/27/25 Follow Up: Procedure(s): MM tomosynthesis screening BI Accession Number(s): [id number] cc: Jovany Barrera D.O.; Dano Rodríguez M.D. Patient Name: MAGED ARCINIEGA MR#: [id number] : 1985 Exam Date: 01/27/2025 Ordering Doctor: DR Jovany Barrera . RADIOLOGY REPORT PROCEDURE: MM TOMOSYNTHESIS [...] colon cancer at age 72. LOCATION: [facility] BREAST COMPOSITION: The breasts are heterogeneously dense,which [...] Signed By: 01/27/25 1418 DD/ 1417 TD/TT: Gliding Pilot Instructor: [facility] Radiology, Radiologist, MD - 01/27/2025 [place] [address] Mammography Report Signed Patient: MAGED ARCINIEGA MR#: [id number] : 1985 Acct:[id number] Age/Sex: 39 / F ADM Date: 01/27/25 Loc: MAMMO Attending Dr: Jovany Barrera D.O. Ordering Physician: Jovany Barrera D.O. Results: Date of Service: 01/27/25 Follow Up: Procedure(s): MM tomosynthesis screening BI Accession Number(s): [id number] cc: Jovany Barrera D.O.; Dano Rodríguez M.D. Patient Name: MAGED ARCINIEGA MR#: [id number] : 1985 Exam Date: 01/27/2025 Ordering Doctor: DR Jovany Barrera . RADIOLOGY REPORT PROCEDURE: MM TOMOSYNTHESIS [...] colon cancer at age 72. LOCATION: [facility] BREAST COMPOSITION: The breasts are heterogeneously dense,which [...] Signed By: 01/27/25 1418 DD/ 1417 TD/TT: Gliding Pilot Instructor: [facility] Radiology Study observation (narrative) [facility] MM TOMOSYNTHESIS SCREENING B IOrdered By: Radiologist Radiology on 01-27-2025 [facility] Work Phone: XR Knee - right 1 or 2 [...] Impression: No acute bony process, right knee [facility] Radiology Study observation (narrative) [facility] XR Knee - right 1 or 2 Views Ordered By: Jr. Caldwell on 06-08-2024 [facility] [employer] Work Phone: SYMPTOMATIC COVID-19 ANTIGEN on 02-07-2023 EUA Statement SEE BELOW Normal [facility] Comment on above: Result Comment: [...] sooner. Performed By: #### C VDAGS #### [facility] [address] [address] [address] Amber Fairbanks SARS-CoV-2 (COVID-19) RNA MARIZOL+probe Ql (Unsp spec) Positive Abnormal NEGATIVE [facility] Comment on above: Performed By: #### C VDAGS #### [facility] [address] [address] [address] Amber Fairbanks Covid-19 PCR (CVDTB)on 09-13 SARS-CoV-2 (COVID-19) RNA MARIZOL+probe Ql (Unsp spec) Not detected Normal NOT DETECTED [facility] Comment on above: Result Comment: When diagnostic [...] for this test is supported by the [place] of Health and Human Service's declaration that [...] used). Performed By: #### C VDTBH #### [facility] [address] [place] [address] Dr. Amber Fairbanks GROUP A STREP CULTUREon 09-13 S. pyogenes Ag Ql (Unsp spec) Culture Observations: NEGATIVE FOR GROUP A STREPTOCOCCUS. Normal [facility] Comment on above: Performed By: #### C VDAGA #### [facility] [address] [place] [address] Dr. Amber Fairbanks INFLUENZA A AND B AGon 09-27 INFLUENZA A AG Negative Normal NEGATIVE SEE COMMENT [facility] Comment on above: Performed By: #### I NFLUAB #### [facility] [address] [place] [address] Dr. Amber Fairbanks INFLUENZA B AG Negative Normal NEGATIVE SEE COMMENT [facility] Comment on above: Performed By: #### I NFLUAB #### [facility] [address] [place] [address] Dr. Amber Fairbanks INTERNAL CONTROLS Within Normal Limits Normal Wi thin Normal Limits [facility] Comment on above: Performed By: #### I NFLUAB #### [facility] [address] [place] [address] Dr. Amber Fairbanks STREPT SCREENon 09-27-2022 STREP SCREEN A Negative Normal NEGATIVE [facility] Comment on above: Performed By: #### C VDAGA #### [facility] [address] [address] [address] Amber Fairbanks CBC AUTO DIFFon 05-30-2022 BASO # 0.0 103/ul Normal 0.0-0.1 [facility] Comment on above: Performed By: #### C BC #### [facility] [address] [place] [address] Dr. Amber Fairbanks Basophils/100 WBC (Bld) 0.3 % Normal 0.2-2.0 [facility] Comment on above: Performed By: #### C BC #### [facility] [address] [place] [address] Dr. Amber Fairbanks EO # 0.0 103/ul Normal 0.0-0.7 [facility] Comment on above: Performed By: #### C BC #### [facility] [address] [place] [address] Dr. Amber Fairbanks Eosinophils/100 WBC (Bld) 0.3 % Critically low 0.9-7.0 [facility] Comment on above: Performed By: #### C BC #### [facility] [address] [place] [address] Dr. Amber Fairbanks Erythrocyte distribution width (RBC) [Ratio] 12.8 % Normal 11.0-15.0 [facility] Comment on above: Performed By: #### C BC #### [facility] [address] [place] [address] Dr. Amber Fairbanks Hematocrit (Bld) [Volume fraction] 38.5 % Normal 36.0-48.0 [facility] Comment on above: Performed By: #### C BC #### [facility] [address] [place] [address] Dr. Amber Fairbanks Hemoglobin (Bld) [Mass/Vol] 12.9 g/dL Normal 12.0-16.0 [facility] Comment on above: Performed By: #### C BC #### [facility] [address] [place] [address] Dr. Amber Fairbanks IG # 0.00 10e3/ul Normal 0.00-0.03 [facility] Comment on above: Performed By: #### C BC #### [facility] [address] [place] [address] Dr. Amber Fairbanks IG % 0.0 % Normal 0.0-0.5 [facility] Comment on above: Performed By: #### C BC #### [facility] [address] [place] [address] Dr. Amber Fairbanks LYMPH # 1.1 103/ul Critically low 1.2-3.8 [facility] Comment on above: Performed By: #### C BC #### [facility] [address] [place] [address] Dr. Amber Fairbanks Lymphocytes/100 WBC (Bld) 27.2 % Normal 20.5-60.0 [facility] Comment on above: Performed By: #### C BC #### [facility] [address] [place] [address] Dr. Amber Fairbanks MANUAL DIFF REQ NO Normal [facility] Comment on above: Performed By: #### C BC #### [facility] [address] [place] [address] Dr. Amber Fairbanks MCH (RBC) [Entitic mass] 29.1 pg Normal 26.7-34.0 [facility] Comment on above: Performed By: #### C BC #### [facility] [address] [place] [address] Dr. Amber Fairbanks MCHC (RBC) [Mass/Vol] 33.5 g/dL Normal 29.9-35.2 [facility] Comment on above: Performed By: #### C BC #### [facility] [address] [place] [address] Dr. Amber Fairbanks MCV (RBC) [Entitic vol] 86.7 fL Normal 81.0-99.0 [facility] Comment on above: Performed By: #### C BC #### [facility] [address] [place] [address] Dr. Amber Fairbanks MONO # 0.5 103/ul Normal 0.3-0.8 [facility] Comment on above: Performed By: #### C BC #### [facility] [address] [address] [address] Amber Fairbanks Monocytes/100 WBC (Bld) 13.5 % Critically high 1.7-12.0 [facility] Comment on above: Performed By: #### C BC #### [facility] [address] [address] [address] Amber Fairbanks NEUT # 2.3 103/ul Normal 1.4-6.5 [facility] Comment on above: Performed By: #### C BC #### [facility] [address] [place] [address] Dr. Amber Fairbanks Neutrophils/100 WBC (Bld) 58.7 % Normal 43.0-75.0 [facility] Comment on above: Performed By: #### C BC #### [facility] [address] [place] [address] Dr. Amber Fairbanks Platelet mean volume (Bld) [Entitic vol] 10.5 fL Normal 9.5-13.5 [facility] Comment on above: Performed By: #### C BC #### [facility] [address] [place] [address] Dr. Amber Fairbanks PLT 241 103/ul Normal 150-450 [facility] Comment on above: Performed By: #### C BC #### [facility] [address] [place] [address] Dr. Amber Fairbanks RBC 4.44 106/ul Normal 4.20-5.40 [facility] Comment on above: Performed By: #### C BC #### [facility] [address] [place] [address] Dr. Amber Fairbanks WBC 3.9 103/ul Critically low 4.0-11.0 [facility] Comment on above: Performed By: #### C BC #### [facility] [address] [place] [address] Dr. Amber Fairbanks CPKon 05-30-2022 CK [Catalytic activity/Vol] 178 U/L Normal 26-192 [facility] Comment on above: Performed By: #### C MP, CK #### [facility] [address] [place] [address] Dr. Amber Fairbanks Covid-19 PCR (CVDTB)on 05-14 SARS-CoV-2 (COVID-19) RNA MARIZOL+probe Ql (Unsp spec) Not detected Normal NOT DETECTED [facility] Comment on above: Result Comment: This test is not yet approved or cleared by the [place] FDA. When there are no FDA-approved or cleared tests available, and other criteria are met, FDA can make tests available under an emergency access mechanism called an Emergency Use Authorization (EUA). The EUA for this test is supported by the [employer] of Health and Human Service's (HHS's) declaration [...] SARS-CoV-2. Performed By: #### C VDTBH #### [facility] [address] [place] [address] Dr. Amber Fairbanks INFLUENZA A AND B AGon 05-30 INFLUENZA A AG Negative Normal NEGATIVE SEE COMMENT [facility] Comment on above: Performed By: #### C VDAGA #### [facility] [address] [place] [address] Dr. Amber Fairbanks INFLUENZA B AG Negative Normal NEGATIVE SEE COMMENT [facility] Comment on above: Performed By: #### C VDAGA #### [facility] [address] [place] [address] Dr. Amber Fairbanks INTERNAL CONTROLS Within Normal Limits Normal Wi thin Normal Limits [facility] Comment on above: Performed By: #### C VDAGA #### [facility] [address] [place] [address] Dr. Amber Fairbanks MONOon 05-30-2022 Monocytes (Bld) [#/Vol] Negative Normal NEGATIVE [facility] Comment on above: Performed By: #### C VDAGA #### [facility] [address] [place] [address] Dr. Amber Fairbanks PROF 14(COMP METB)on 022 Albumin [Mass/Vol] 3.7 g/dL Normal 3.4-5.0 [facility] Comment on above: Performed By: #### C VDAGA #### [facility] [address] [place] [address] Dr. Amber Fairbanks Albumin/Globulin [Mass ratio] 0.8 {ratio} Normal [facility] Comment on above: Performed By: #### C VDAGA #### [facility] [address] [place] [address] Dr. Amber Fairbanks ALP [Catalytic activity/Vol] 72 U/L Normal 46-116 [facility] Comment on above: Performed By: #### C VDAGA #### [facility] [address] [place] [address] Dr. Amber Fairbanks ALT [Catalytic activity/Vol] 20 U/L Normal 14-59 [facility] Comment on above: Performed By: #### C VDAGA #### [facility] [address] [place] [address] Dr. Amber Fairbanks Anion gap [Moles/Vol] 14.7 mmol/L Normal [facility] Comment on above: Performed By: #### C VDAGA #### [facility] [address] [place] [address] Dr. Amber Fairbanks AST [Catalytic activity/Vol] 26 U/L Normal 15-37 [facility] Comment on above: Performed By: #### C VDAGA #### [facility] [address] [place] [address] Dr. Amber Fairbanks Bilirubin [Mass/Vol] 0.5 mg/dL Normal 0.2-1.0 [facility] Comment on above: Performed By: #### C VDAGA #### [facility] [address] [place] [address] Dr. Amber Fairbanks Calcium [Mass/Vol] 8.8 mg/dL Normal 8.5-10.[address] [facility] Comment on above: Performed By: #### C VDAGA #### [facility] [address] [address] [address] Amber Fairbnaks Chloride [Moles/Vol] 101 mmol/L Normal 98-107 [facility] Comment on above: Performed By: #### C VDAGA #### [facility] [address] [place] [address] Dr. Amber Fairbanks CO2 [Moles/Vol] 24.9 mmol/L Normal 21.0-32.0 [facility] Comment on above: Performed By: #### C VDAGA #### [facility] [address] [place] [address] Dr. Amber Fairbanks Creatinine [Mass/Vol] 0.83 mg/dL Normal 0.55-1.02 [facility] Comment on above: Performed By: #### C VDAGA #### [facility] [address] [place] [address] Dr. Amber Fairbanks EGFR-AF SCOTTISH >60 Normal >=60 [facility] Comment on above: Performed By: #### C VDAGA #### [facility] [address] [place] [address] Dr. Amber Fairbanks EGFR-NON AF SCOTTISH >60 Normal >=60 [facility] Comment on above: Performed By: #### C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 report from [facility] dated 07/10/2025, which included her head and neck, was reviewed and showed no acute processes such as fracture or malalignment. Given the duration of her symptoms, an MRI arthrogram is strongly recommended for further evaluation. She expressed gratitude and had no additional concerns or questions. Diagnostic plan: MRI arthrogram. Treatment plan: A trial of physical therapy focusing on capsular strengthening with her rotator cuff was proposed. She agreed to receive subacromial and biceps tendon injections today, with the understanding that the biceps tendon injection would likely be intra-articular given its location. Clinical decision making: Surgical and nonsurgical treatment options were discussed. transitions rn care coordinator was sought but it was unsuccessful and caused increased pain. Follow-up: She will follow up in 4 weeks if symptoms are not improved. Questions answered in laymen terms at the bedside. The diagnosis, home exercise plan and any ongoing restrictions/ recommendations reviewed. If unable to be reached in office, I recommend evaluation at nearest Emergency Room if any symptoms worsened or new symptoms develop for requiring urgent evaluation. Visit was preformed using [facility] [employer]-tugboat pilot speech recognition. documented in this encounter [facility] 05-06-2025 History of Presen t illness Narrative Reason for Appointment: Patient ID: Maged Arciniega is a 39 y.o. female who presents for Weight Management Patient presents today for Weight Management Consult. MEDICATIONS Current Outpatient Medications Medication Instructions clobetasol (Temovate) 0.05 % external solution APPLY ONCE DAILY TO AFFECTED AREAS ON EARS/SCALP, EARS NEEDED FOR SCALING, ITCHING, REDNESS. Imitrex 100 MG tablet Every 12 hours metFORMIN XR (GLUCOPHAGE-XR) 500 mg, Oral, Daily with evening meal, Do not crush, chew, or split. metFORMIN XR (GLUCOPHAGE-XR) 1,000 mg, Oral, Daily with evening meal, Do not crush, chew, or split. phentermine (ADIPEX-P) 37.5 mg, Oral, Daily before breakfast Vtama 1 Units, Daily ALLERGIES No Known Allergies PROBLEMS Active Ambulatory Problems Diagnosis Date Noted Foot pain 02/05/2025 Generalized anxiety disorder 02/05/2025 Posttraumatic stress disorder 02/05/2025 Obsessive-compulsive disorder 02/05/2025 Shoulder strain 02/05/2025 Resolved Ambulatory Problems Diagnosis Date Noted No Resolved Ambulatory Problems Past Medical History: Diagnosis Date DUB (dysfunctional uterine bleeding) Psoriasis PTSD (post-traumatic stress disorder) HISTORY PAST MEDICAL HISTORY SOCIAL HISTORY Past Medical History: Diagnosis Date DUB (dysfunctional uterine bleeding) Psoriasis PTSD (post-traumatic stress disorder) Social History Tobacco Use Smoking status: Never [...] Constitutional: Appearance: Normal appearance. She is well-developed. Cardiovascular: Rate and Rhythm: Normal rate and [...] nursing note reviewed. Exam conducted with a manager french present. Vitals: Estimated body mass index is 32.69 kg/m as calculated from the following: Height as of 02/09/25: 6' 1 . Weight as of this encounter: 247 lb 12.8 oz. BP: 116/74 Patient's last menstrual period was 03/25/2025 (exact date). ASSESSMENT & PLAN ICD-10-CM 1. Encounter for weight management Z76.89 phentermine (Adipex-P) 37.5 MG tablet DISCONTINUED: phentermine (Adipex-P) 37.5 MG tablet Patient presents today for weight management appointment. Patient given 90 day prescription for Adipex and is not having any complaints at this time. Patient to return to clinic as needed and for routine annual appointment. Documented by Jessy Mckeon LPN on behalf of: Jovany Barrera DO documented in this encounter [facility] 04-06-2025 History of Presen t illness Narrative Reason for Appointment: Patient ID: Maged Arciniega is a 39 y.o. female who presents for Weight Management Patient presents today for a weight management consultation. Patient has been prescribed Adipex and she is here for her 2nd prescription. Today's Vitals: Estimated body mass index is 33.53 kg/m as calculated from the following: Height as of 02/09/25: 6' 1 . Weight as of this encounter: 254 lb 1.9 oz. Previous Weight/BMI: Wt Readings from Last 2 Encounters: 04/06/25 254 lb 1.9 oz 03/09/25 261 lb 12.8 oz BMI Readings from Last 2 Encounters: 04/06/25 33.53 kg/m 03/09/25 34.54 kg/m Allergies as of 04/06/2025 (No Known Allergies) Past Medical History: Diagnosis Date DUB (dysfunctional uterine bleeding) Psoriasis PTSD (post-traumatic stress disorder) Past Surgical History: Procedure Laterality Date ANKLE SURGERY Right 2003 repair BREAST LUMPECTOMY Right SECTION, CLASSIC Assessment/Plan Encounter Diagnoses Name Primary? Weight gain Encounter for weight management Adipex: Patient presents today for 2nd Adipex prescription. Patients weight and blood pressure has been captured and discussed with the patient. I have discussed/reiterated the importance of keeping a food journal, proper nutrition/diet, and exercise regimen while taking Adipex. Patient verbalized understanding and was given a printed prescription signed by provider to take to their local pharmacy. Follow Up: Patient is to return to the office in 1 month for further evaluation to assess patient progress. Weight and blood pressure will need to be obtained in order for patient to receive 3rd prescription. Documented by: Kathrine Pugh LPN on behalf of Jovayn Barrera DO documented in this encounter [facility] 03-09-2025 History of Presen t illness Narrative Reason [...] Noted Foot pain 02/05/2025 Generalized anxiety disorder ([facility]) 02/05/2025 Posttraumatic stress disorder ([facility]) 02/05/2025 Obsessive-compulsive disorder ([facility]) 02/05/2025 Shoulder strain 02/05/2025 Resolved Ambulatory Problems Diagnosis Date Noted No Resolved Ambulatory Problems Past Medical History: Diagnosis Date DUB (dysfunctional uterine bleeding) Psoriasis PTSD (post-traumatic stress disorder) ([facility]) HISTORY PAST MEDICAL HISTORY SOCIAL HISTORY Past Medical History: Diagnosis Date DUB (dysfunctional uterine bleeding) Psoriasis PTSD (post-traumatic stress disorder) ([facility]) Social History Tobacco Use Smoking status: Never [...] nursing note reviewed. Exam conducted with a manager french present. Vitals: Estimated body mass index is 34.54 kg/m as calculated from the following: Height [...] by Kathrine Pugh LPN on behalf of: Jovany Barrera DO documented in this encounter [facility] 02-09-2025 History of Presen t illness Narrative Subjective Patient ID: Maged Arciniega is a 39 y.o. female who presents for Thyroid Nodule Pt reports she developed a left post neck mass in mid change with abx. US showed a [id number] left thyroid cyst and a [id number] left post triangle LN. Review of Systems All other systems reviewed and are negative. Family History Problem Relation Name Age of Onset Migraines Mother Cancer Father Hypertension Other Heart disease Other Active Ambulatory Problems Diagnosis Date Noted Foot pain 02/05/2025 Generalized anxiety disorder (CMS/HCC) 02/05/2025 Posttraumatic stress disorder (CMS/HCC) 02/05/2025 Obsessive-compulsive disorder (CMS/HCC) 02/05/2025 Shoulder strain 02/05/2025 Resolved Ambulatory Problems Diagnosis Date Noted No Resolved Ambulatory Problems Past Medical History: Diagnosis Date DUB (dysfunctional uterine bleeding) PTSD (post-traumatic stress disorder) (CMS/HCC) Past Surgical History: Procedure Laterality Date ANKLE SURGERY Right 2003 repair BREAST LUMPECTOMY Right SECTION, CLASSIC No Known Allergies Current Outpatient Medications on File Prior to Visit Medication Sig Dispense Refill clobetasol (Temovate) 0.05 % external solution APPLY ONCE DAILY TO AFFECTED AREAS ON EARS/SCALP, EARS NEEDED FOR SCALING, ITCHING, REDNESS. Imitrex 100 MG tablet every 12 (twelve) hours metFORMIN XR (Glucophage-XR) 500 MG 24 hr tablet Take 1 tablet (500 mg) by mouth in the evening. Take with meals Do not crush, chew, or split. 30 tablet 11 [DISCONTINUED] DICLOFENAC SODIUM OP Use 75 mg in the mouth or throat No current facility-administered medications on file prior to visit. Objective Last Recorded Vitals Vitals: 02/09/25 0808 BP: 121/77 Pulse: 83 ENT Physical Exam Constitutional Appearance: patient appears well-developed, well-nourished and well-groomed, Head and Face Appearance: head appears normal and face appears atraumatic; Ear Ear Canals: right ear canal normal; left ear canal normal; Tympanic Membranes: right tympanic membrane normal; left tympanic membrane normal; Nose External Nose: nares patent bilaterally; external nose normal; Internal Nose: septum normal; Oral Cavity/Oropharynx Tongue: normal; Oral mucosa: normal; Hard palate: normal; Soft palate: normal; Tonsils: normal; Neck Neck: neck normal; neck palpation normal; Thyroid: thyroid normal; Respiratory Inspection: breathing unlabored; normal breathing rate; Auscultation: breath sounds are clear; Cardiovascular Inspection: extremities are warm and well perfused; no peripheral edema present; Auscultation: regular rate and rhythm; Assessment/Plan Diagnoses and all orders for this visit: Thyroid nodule (CMS/HCC) LAD (lymphadenopathy), posterior cervical Pt has a very small low risk thyroid nodule. Recommend repeat US in one year. LT post LN no longer palpable. F/U if growth noted documented in this encounter [facility] 11-30-2024 History of Presen t illness Narrative [...] (dysfunctional uterine bleeding) PTSD (post-traumatic stress disorder) ([facility]) HISTORY PAST MEDICAL HISTORY SOCIAL HISTORY Past Medical History: Diagnosis Date DUB (dysfunctional uterine bleeding) PTSD (post-traumatic stress disorder) ([facility]) Social History Tobacco Use Smoking status: Never [...] nursing note reviewed. Exam conducted with a manager french present. Vitals: Estimated body mass index is [...] Jovany Barrera DO documented in this encounter [facility] 07-06-2024 History of Presen t illness Narrative [...] we may recommend a (R) knee scope. Tho Caldwell D.O. documented in this encounter [facility] 06-08-2024 History of Presen t illness Narrative [...] (dysfunctional uterine bleeding) PTSD (post-traumatic stress disorder) ([facility]) PAST SURGICAL HISTORY: Past Surgical History: Procedure [...] symptoms develop for requiring urgent evaluation. Murray Stiles APRN-EMPLOYEE RELATIONS ASSISTANT documented in this encounter [facility] Healthcare Evaluation note Diagnosis Internal derangement of right knee- Primary Right knee pain, unspecified chronicity documented [facility] encounter [facility] Diagnosis Internal derangement of right knee- Primary documented in this [facility]* Diagnosis Bartholin's gland cyst Cyst of Bartholin's gland documented in this encounter [facility]* Diagnosis Thyroid nodule (CMS/HCC)- Primary Nontoxic uninodular goiter LAD (lymphadenopathy), posterior cervical documented [facility] this [facility]* Diagnosis Well woman exam with routine gynecological exam Routine gynecological examination Weight gain Other symptoms concerning nutrition, metabolism, and development BMI 34.0-34.9,adult documented in this encounter [facility] Diagnosis Weight gain Other symptoms concerning nutrition, metabolism, and development Encounter for weight management Insulin resistance Other abnormal glucose documented in this encounter [facility]* Diagnosis Encounter for weight management documented in this encounter [facility] Diagnosis Acute pain of right shoulder- Primary Shoulder instability, right Shoulder impingement syndrome, right Calcific tendonitis of right shoulder Internal derangement of right shoulder documented in this encounter [facility] Healthcare Summary Purpose Family History No Family [...] MR knee right wo IV contrast Murray Stiles NP [address] [place] [address] [facility] [address] [facility] [address] [place] [address] Referral ID Status Reason Start Date Expiration Date V isits Requested Visits Authorized [id number] Pending Review 06/08/2024 12/05/2024 1 1 Additional Source Comments INFORMATION SOURCE (unrecogn ized section and content) DATE CREATED AUTHOR 02/02/2022 Tobi Cline [facility] DATE CREATED AUTHOR AUTHOR'S ORGANIZ ATION 02/10/2023 [facility] DATE CREATED AUTHOR AUTHOR'S ORGANIZ ATION 02/26/2025 [facility] DATE CREATED AUTHOR AUTHOR'S ORGANIZ ATION 07/19/2025 [facility] EPIC Reason for Visit (unrecogniz ed section and content) Reason Comments Pain Reason Comments Pain Reason Comments Bartholin's Cyst Reason Comments Thyroid Nodule Reason Comments Well Women Visit Reason Comments Weight Management Reason Comments Pain Care Teams (unrecognized sec tion and content) Caser Up Relationship Specialty Start Date End Date Dano Rodríguez MD [address] [phone] PCP - General Family Medicine 01/06/24 Caser Up Relationship Specialty Start Date End Date Dano Rodríguez MD [address] [phone] PCP - General Family Medicine 01/06/24 Caser Up Relationship Specialty Start Date End Date Dano Rodríguez MD [address] [place] [address] PCP - General Family Medicine 01/06/24 Caser Up Relationship Specialty Start Date End Date Dano Rodríguez MD [address] [place] [address] PCP - General Family Medicine 01/06/24 Caser Up Relationship Specialty Start Date End Date Dano Rodríguez MD [address] [place] [address] PCP - General Family Medicine 01/06/24 Caser Up Relationship Specialty Start Date End Date Dano Rodríguez MD [address] [facility] [place] [address] PCP - General Family Medicine 01/06/24 Caser Up Relationship Specialty Start Date End Date Dano Rodríguez MD [address] [facility] [place] [address] PCP - General Family Medicine 01/06/24 Caser Up Relationship Specialty Start Date End Date Dano Rodríguez MD [address] [facility] [place] [address] PCP - General Family Medicine 01/06/24 Caser Up Relationship Specialty Start Date End Date Dano Rodríguez MD [address] [facility] [place] [address] PCP - General Family Medicine 01/06/24 Caser Up Relationship Specialty Start Date End Date Dano Rodríguez MD [address] [facility] [place] [address] PCP - General Family Medicine 01/06/24 Caser Up Relationship Specialty Start Date End Date Dano Rodríguez MD [address] [facility] [place] [address] PCP - General Family Medicine 01/06/24 Caser Up Relationship Specialty Start Date End Date Dano Rodríguez MD [address] [facility] [place] [address] PCP - General Family Medicine 01/06/24 Caser Up Relationship Specialty Start Date End Date Dano Rodríguez MD [address] [facility] [place] [address] PCP - General Family Medicine 01/06/24 Caser Up Relationship Specialty Start Date End Date Dano Rodríguez MD [address] [place] [address] PCP - General Family Medicine 01/06/24 FOR [...] BE BASED ON THE PRIMARY CLINICAL RECORDS. [facility] [email or web address] [facility]. provides no warranty or guarantee of the accuracy or completeness of information in this document.
== END 2025-07-23 10:04 | disposition home or self-care (01) ==
LOC: MRI 10:03
PROVIDERS: PCP Family Medicine; Visit Provider Family Medicine
DX: M54.12 Radiculopathy, cervical region (principal)
CPT/HCPCS: 72141